=== PATIENT | female | born 1935 | race Caucasian/White ===

== ENCOUNTER → 2017-02-05 14:50 | Outpatient (CLI) | payer MEDICARE, OTHER ==
[2015-04-02 12:23] VITALS: BMI 22.0
[~2017-02-05 14:50] MED LIST: BAYER CHEWABLE81 MG PO; HYDROCODON-ACE1 EAC6 PO; LOTENSIN5 MG PO; LOTREL 5/10 MG1 CAP PO; NORVASC5 MG PO; PRAVACHOL20 MG PO; SYNTHROID50 MCG PO
== END | disposition home or self-care (01) ==
LOC: D.MAMMO 09:30
DX: Z12.31 Encounter for screening mammogram for malignant neoplasm of breast (principal)

== ENCOUNTER 2017-12-05 09:58 | Inpatient (IN) | payer MEDICARE, OTHER ==
[~2017-12-05] VITALS: Ht 162.6 cm; Wt 50.7 kg
[2017-12-05 10:28] LABS: BASOPHILS 0.6 % (0-2); HEMATOCRIT 33.3 % (36.0-48.0); HEMOGLOBIN 11.3 g/dL (12-16); IMMATURE GRANULOCYTES 0.4 % (0-5); LYMPHOCYTES 29.8 % (15-50); MCH 29.7 pg (26.0-34.0); MCHC 33.9 g/dL (31.0-37.0); MCV 87.6 fL (80.0-100.0); MEAN PLATELET VOLUME 8.8 fL (7.4-10.4); MONOCYTES 10.5 % (2-11); NEUTROPHILS 56.7 % (40-80); PLATELET COUNT 196 10x3/uL (130-400); RDW 13.7 % (11.5-14.5)
[2017-12-05 10:35] LABS: ALBUMIN 3.3 g/dL (3.4-5.0); ANION GAP 10.2 mmol/L (8-16); BILIRUBIN - TOTAL 0.5 mg/dL (0.2-1.3); CALCIUM 8.9 mg/dL (8.5-10.1); CARBON DIOXIDE 26.7 mmol/L (21.0-32.0); POTASSIUM - SERUM 3.9 mmol/L (3.5-5.1); PROTEIN - SERUM 7.5 g/dL (6.4-8.2)
[2017-12-05 11:07] LABS: T4 THYROXIN - FREE 1.42 ng/dL (0.76-1.46); THYROID STIMULATING HORMONE 1.85 uIU/mL (0.36-3.74)
[2017-12-05] MEDS ORDERED: LEVOXYL75 MCG PO (13:43)
[2017-12-05] MEDS ORDERED: PRAVACHOL40 MG PO (13:44)
[2017-12-05] MEDS ORDERED: TIROSINT75 MCG PO (13:52)
[2017-12-05] MEDS ORDERED: DESMOPRESSIN A0.1 MG (13:54)
[2017-12-05 14:21] VITALS: BP 161/80; BMI 18.7
[2017-12-05 15:29] VITALS: BP 114/62
[2017-12-05 20:00] VITALS: BP 140/70
[2017-12-05 20:17] VITALS: Ht 162.6 cm; Wt 50.7 kg
[2017-12-06 01:00] VITALS: BP 141/76
[2017-12-06 05:00] VITALS: BP 157/80
[2017-12-06 05:07] LABS: BASOPHILS 0.4 % (0-2); EOSINOPHILS 2.5 % (0-7); HEMATOCRIT 34.1 % (36.0-48.0); HEMOGLOBIN 11.5 g/dL (12-16); IMMATURE GRANULOCYTES 0.2 % (0-5); LYMPHOCYTES 35.6 % (15-50); MCH 29.3 pg (26.0-34.0); MCHC 33.7 g/dL (31.0-37.0); MCV 86.8 fL (80.0-100.0); MEAN PLATELET VOLUME 8.9 fL (7.4-10.4); MONOCYTES 11.9 % (2-11); NEUTROPHILS 49.4 % (40-80); PLATELET COUNT 211 10x3/uL (130-400); RBC 3.93 10x6/uL (4.00-5.40); RDW 13.7 % (11.5-14.5); WBC 5.5 10x3/uL (4.8-10.8)
[2017-12-06 05:50] LABS: ANION GAP 12.7 mmol/L (8-16); CARBON DIOXIDE 25.1 mmol/L (21.0-32.0); CREATININE - SERUM 0.9 mg/dL (0.6-1.3); POTASSIUM - SERUM 3.8 mmol/L (3.5-5.1)
[2017-12-06 05:57] LABS: % SATURATION 14 % (15-55); IRON 36 ug/dl (35-150); TOTAL IRON BIND CAPACITY 246 ug/dl (260-445); UNSAT IRON BIND CAPACITY 210 ug/dl (150-375)
[2017-12-06 07:00] VITALS: BP 158/83
[2017-12-06 12:00] VITALS: BP 158/85
[2017-12-06 17:14] VITALS: BP 129/70
[2017-12-06 19:00] VITALS: BP 149/79
[2017-12-07 00:26] VITALS: BP 156/79
[2017-12-07 04:00] VITALS: BP 155/80
[2017-12-07 08:21] LABS: FOLATE (FOLIC ACID) - SERUM 16.6 ng/mL (>3.0)
[2017-12-07 09:25] VITALS: BP 156/84
[2017-12-07 12:22] VITALS: BP 139/57
[2017-12-07 16:46] VITALS: BP 119/63
== END 2017-12-07 18:19 | disposition home or self-care (01) | DRG 312 ==
LOC: D.ER 09:58 → D.EDHOLD 12:34 → D.M2 12:34 → OBSVTIME 12-06 08:00 → D.M2 12-06 15:38
PROVIDERS: Family Medicine; Legal Medicine
DX: I95.1 Orthostatic hypotension (principal); E87.1 Hypo-osmolality and hyponatremia; E03.9 Hypothyroidism, unspecified; I10 Essential (primary) hypertension; D64.9 Anemia, unspecified; Z95.0 Presence of cardiac pacemaker

== ENCOUNTER → 2017-12-21 11:48 | Outpatient (CLI) | payer MEDICARE, OTHER ==
[2017-12-05 20:17] VITALS: BMI 18.7
[~2017-12-21 11:48] MED LIST changes: +DESMOPRESSIN A0.1 MG; +LEVOXYL75 MCG PO; +PRAVACHOL40 MG PO; +TIROSINT75 MCG PO
== END | disposition home or self-care (01) ==
LOC: D.CT 11:30
DX: I25.10 Atherosclerotic heart disease of native coronary artery without angina pectoris (principal)

== ENCOUNTER 2018-01-07 05:20 | Inpatient (IN) | payer MEDICARE, OTHER ==
[2018-01-06 15:03] LABS: APPEARANCE CLEAR (CLEAR); BILIRUBIN NEGATIVE (NEGATIVE); COLOR YELLOW (YELLOW); GLUCOSE NEGATIVE (NEGATIVE); KETONE NEGATIVE (NEGATIVE); NITRITE NEGATIVE (NEGATIVE); PROTEIN NEGATIVE (NEGATIVE); SPECIFIC GRAVITY 1.005 (1.005-1.020); UROBILINOGEN NORMAL (NORMAL)
[2018-01-06 15:21] LABS: HEMOGLOBIN 12.8 g/dL (12-16); MCH 29.8 pg (26.0-34.0); MCHC 34.6 g/dL (31.0-37.0); MCV 86.2 fL (80.0-100.0); MEAN PLATELET VOLUME 9.2 fL (7.4-10.4); RBC 4.29 10x6/uL (4.00-5.40); RDW 13.8 % (11.5-14.5); WBC 4.9 10x3/uL (4.8-10.8)
[2018-01-06 15:30] LABS: INR 1.08 (0.85-1.17); PROTIME 13.6 SECONDS (11.6-15.0)
[2018-01-06 15:41] LABS: ANION GAP 13.8 mmol/L (8-16); BILIRUBIN - TOTAL 0.78 mg/dL (0.2-1.3); CALCIUM 9.7 mg/dL (8.5-10.1); CREATININE - SERUM 0.8 mg/dL (0.6-1.3); POTASSIUM - SERUM 3.8 mmol/L (3.5-5.1); PROTEIN - SERUM 8.3 g/dL (6.4-8.2)
[2018-01-07] VITALS (56 sets, daily range): BP systolic 104–153; BP diastolic 43–73; Ht 162.6 cm; Wt 42.5 kg
[~2018-01-07] VITALS: Ht 162.6 cm; Wt 42.5 kg
--- NOTE | ~2018-01-07 | HP ---
PATIENT: ERASMO CUNNINGHAM MEDICAL RECORD: [id number] ACCOUNT: [id number] LOCATION:[facility]05 : 35 ADMISSION DATE: 01/07/18 HISTORY AND PHYSICAL EXAMINATION NameERASMO BINGHAM (82yo, F) ID# [id number]. Date/Time01/05/2018 10:69RUHDX78/19/1936Service Dept.NPP[facility] ClinicProviderEDMOIZ KWONG MDInsuranceMed Primary: [place]) Insurance # : [id number] Referring Provider Name : BARRY VORA Employer Name : RETIRED Med Secondary: [employer] (MEDICARE SUPPLEMENT) Insurance # : [id number] Referring Provider Name : BARRY VORA Employer Name : RETIRED Prescription: CMX - Member is eligible. Chief Complaint Carotid stenosis s/p PPM 05/21/14 RIGHT CAROTID STENOSIS CTA CAROTIDS [facility] Patient's Care Team Referring Provider (): BARRY VORA: [address] [place] [phone], , Analyst [employer] Bever[employer]: LA GARCIA MD: [address] [place] [phone], , Patient's Pharmacies [facility] ([facility]): [address] [place] [id number], , Vitals BP:130/80 sitting R arm 01/05/2018 10:39 am 134/82 sitting L arm 01/05/2018 10:40 amHR:80/REG 01/05/2018 10:41 amHt:5 ft 4 in 01/05/2018 10:36 amWt:110 lbs 01/05/2018 10:38 amBMI:18.9 01/05/2018 10:38 amAllergies Reviewed Allergies AMOXICILLIN: Rash (Severe)CLINDAMYCIN: Rash (Severe)Medications Reviewed Medications APAP/CODEINE TAB 300-30MG08/04/13 filledCatalystHealthSolutionsBENAZEPRIL TAB 5MG05/14/14 filledCatalystHealthSolutionscholestyramine (with sugar) 4 gram oral /25/18 filledCaremarkdesmopressin 0.1 mg tablet Take 1 tablet(s) every day by oral route at bedtime for 90 days.12/23/17 filledCaremarkFluvirin 7700-4402 45 mcg (15 mcg x 3)/0.5 mL intramuscular suspension ADM 0.5ML UTD1 filledsurescriptsFluvirin 2051-3516 45 mcg (15 mcg x 3)/0.5 mL intramuscular suspension INJECT 0.5 ML INTRAMUSCULARLY DIRECTED.05/03/14 filledsurescriptsFluzone High-Dose 8828-7141 (PF) 180 mcg/0.5 mL intramuscular syringe ADM 0.5ML IM UTD1 filledsurescriptslevothyroxine 50 mcg ikplqj44/26/17 filledCaremarkLotrel 5 mg-10 mg capsule Take 1 capsule(s) every day by oral route.12/29/17 enteredErika Watkinsoxybutynin chloride ER 10 mg tablet,extended release 24 hr Take 1 tablet(s) every day by oral route for 90 days.03/10/17 filledCaremarkPRAVASTATIN TAB 20MG05/14/14 filledCatalystHealthSolutionsPREDNISONE TAB 10MG08/04/13 filledCatalystHealthSolutionsVesicare 5 mg tablet Take 1 tablet(s) every day by oral route for 7 days.02/15/17 prescribedRobert Martino, MDProblems HISTORY AND PHYSICAL [id number] ERASMO CUNNINGHAM Reviewed Problems Hypothyroidism Hyperlipidemia Essential hypertension Coronary arteriosclerosis Complete atrioventricular block Carotid artery stenosis, Right Lupus erythematosus Sjgren's syndrome Osteoarthritis Syncope Family History Reviewed Family History Father- Heart diseaseSocial History Reviewed Social History Cardiology and General Smoking Status: Never smoker Alcohol intake: None Occupation: retired Marital status: Is blood transfusion acceptable in an emergency?: Y Surgical History Reviewed Surgical History Other - 05/22/2014 - 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 HPI Cerebral Vascular Disease Reported by patient. Duration: has noted for months; "TWO MONTHS AGO" Onset/Timing: intermittent; monthly HISTORY AND PHYSICAL [id number] ERASMO CUNNINGHAM Alleviating Factors: rest Aggravating Factors: position change Associated Symptoms: no difficulty speaking; no lethargy; syncope Notes: TWO EPISODES OF SYNCOPE, PASSED OUT IN RESTORATIONIST 1 MONTH AGO severe right internal carotid artery stenosis with syncope ROS Patient reports no fever, no night sweats, no significant weight gain, no significant weight loss, and no exercise intolerance; syncope and dizziness. She reports no jugular vein distension and no swollen glands; history of fractured jaw. She reports no chest pain, no arm pain on exertion, no shortness of breath when walking, no shortness of breath when lying down, no palpitations, and no known heart murmur; permanent transvenous pacing system. She reports no dry eyes, no irritation, and no vision change. She reports no difficulty hearing and no ear pain. She reports no frequent nosebleeds and no nose/sinus problems. She rep orts no sore throat, no bleeding gums, no snoring, no dry mouth, no mouth ulcers, no oral abnormalities, and no teeth problems. She reports no cough, no wheezing, no shortness of breath, and no coughing up blood. She reports no abdominal pain, no vomiting , normal appetite, no diarrhea, not vomiting blood, no nausea, and no constipation. She reports no incontinence, no difficulty urinating, no hematuria, and no increased frequency. She reports no muscle aches, no muscle weakness, no arthralgias/joint pain, n o back pain, and no swelling in the extremities. She reports no abnormal mole, no jaundice, and no rashes. She reports no loss of consciousness, no weakness, no numbness, no seizures, no dizziness, and no headaches. She reports no depression, no sleep dis turbances, feeling safe in relationship, and no alcohol abuse. She reports no fatigue. She reports no swollen glands and no bruising. She reports no runny nose, no sinus pressure, no itching, no hives, and no frequent sneezing. ROS as noted in the HPI Physical Exam Patient is an 82-year-old female. Constitutional: General Appearance well nourished and developed and healthy-appearing. Level of Distress NAD. Ambulation ambulating normally. Ears, Nose, Throat: Lips, Teeth, and Gums weak peripheral seventh right cranial nerve. Cardiovascular: Apical Impulse not displaced or no thrill. Heart Auscultation normal s1 and s2; no murmurs, rubs, or gallops; and RRR. Arterial Pulses no abdominal aorta bruits, femoral bruits, or popliteal bruits and 2+ bilateral, cline tid 2+ bilateral, femoral 2+ bilateral, popliteal 2+ bilateral, and dorsalis pedis 2+ bilateral. Edema no edema or varicosities. Lungs: Repiratory Effort no dyspnea. Percussion no hyperresonance or dullness or flatness. Auscultation no wheezing, rhonchi, or rales / crackles and breathing sounds normal, good air movement, and CTA except as noted. Abdomen: Bowl Sounds normal. Inspection and Palpation no tenderness, guarding, masses, or rebound tenderness and soft and non-distended. Liver non-tender and no hepatomegaly. Spleen non-tender and no splenomegaly. Hernia none palpable. Musculoskeletal System: Gait And Stance normal gait and stance. Digits and Nails normal nails and no cyanosis. Neurologic: Cranial Nerves grossly intact. Reflexes DTRs 2+ bilaterally throughout. Sensation grossly intact. HISTORY AND PHYSICAL [id number] ERASMO CUNNINGHAM Lymph Nodes: Lymph Nodes no cervical LAD, supraclavicular LAD, axillary LAD, or inguinal LAD. Eyes: Lids and Conjunctivae no discharge or pallor and non-injected. Pupils PERRLA. Cornea grossly intact. EOM EOMI. Lens clear. Sclera non-icteric. Neck: Neck no masses or enlarged lymph nodes and supple, trachea midline, and carotid bruits (very high-pitched right). Thyroid no enlargement or nodules and non-tender. Skin: Inspection and Palpation no rash, lesions, ulcers, jaundice, or abnormal nevi. Assessment / Plan severe right internal carotid artery stenosis symptomatic 1. Carotid artery stenosis I65.29: Occlusion and stenosis of unspecified carotid artery CAROTID STENOSIS: CARE INSTRUCTIONS Discussion Notes severe right internal carotid artery stenosis. I have discussed her disease process with her in detail as well as the alternative methods of treatment. We discussed right carotid endarterectomy including the expected benefits and risks included bleeding, infection, stroke, , and the imponderables.she understands all the above and wishes to proceed with right carotid endarterectomy. RADHA KWONG MD at 1200 CC: [id number] DICTATION DATE: 01/05/18 1030 STEEL GRINDER: REJI 01/06/18 1056 ADM IN [facility] [address] [place] [address]
--- NOTE | ~2018-01-07 | OP ---
PATIENT NAME: ERASMO CUNNINGHAM MEDICAL RECORD: [id number] :35 [facility] AD[facility]ION DATE:01/07/18 SURGEON: PERCY KWONG MD DATE OF OPERATION: 01/07/2018 SURGEON: Percy Kwong MD ANESTHESIA: General endotracheal, Dr. Fitzgerald. OPERATION PERFORMED: Right carotid endarterectomy with patch angioplasty. PREOPERATIVE DIAGNOSIS: Severe right internal carotid artery stenosis. POSTOPERATIVE DIAGNOSIS: Severe right internal carotid artery stenosis. INDICATION FOR OPERATION: Severe right internal carotid artery stenosis. FINDINGS AT OPERATION: Critical right internal carotid artery stenosis with area less than 10%. There were no EEG changes with clamping or unclamping of the carotid artery. ESTIMATED BLOOD LOSS: Less than 100 mL. DESCRIPTION OF PROCEDURE: After informed consent, adequate preoperative medication evaluation, the patient was brought to the operating room, placed on the table in supine position. After induction of general endotracheal anesthesia and application of appropriate monitoring devices, the right neck and chest were prepped and draped in a sterile field, utilizing Betadine scrub, alcohol, and Betadine solution. A Betadine-impregnated drape was also used. An oblique incision was made in the skin crease. Dissection carried down to the fascia. Hemostasis maintained with electrocautery. Facial vein was identified and divided. Utilizing sharp dissection, the common carotid, internal carotid, and external carotid arteries were dissected free of surrounding structures, protecting the neurological structures. The patient was given a calculated dose of heparin, after 3 minutes, clamps were applied. After 2 minutes, no EEG change. The arteriotomy was made and extended with Killian scissors. Artery underwent endarterectomy sharply. Artery underwent extensive debridement and irrigation. Utilizing a CorMatrix vascular patch, a running 7-0 Prolene suture, the arteriotomy was closed with patch angioplasty technique. All maneuvers to remove trapped air were performed. The clamps were removed sequentially. There were no EEG changes. The patient was given a calculated dose of protamine to reverse the heparin. Hemostasis was achieved. A #7 Stuart-Henderson drain was left in the depths of wound and brought out through the base of the neck. Neck was again irrigated. Instrument count and sponge count were correct times 2. Neck was closed in layers utilizing 3-0 Vicryl on the platysma, 5-0 subcuticular Monocryl on the skin. Sterile dressings were applied. The patient tolerated the procedure well and was transferred to the CV ICU in satisfactory condition. TRANSINT:[id number] Voice Confirmation ID: [id number] DOCUMENT ID: [id number] OPERATIVE REPORT [id number] ERASMO CUNNINGHAM EDWARD MD at 1200 CC: [id number] DICTATION DATE: 01/07/18 1024 REFUELER: 01/07/18 1141 [place] [address]
[2018-01-08] VITALS (93 sets, daily range): BP systolic 97–153; BP diastolic 36–85
[2018-01-09] VITALS (53 sets, daily range): BP systolic 30–156; BP diastolic 56–84
[2018-01-09] MEDS ORDERED: PLAVIX75 MG PO (12:36)
== END 2018-01-09 14:10 | disposition home or self-care (01) | DRG 38 ==
LOC: D.SDCHOLD 05:20 → D.CVICU 05:20 → D.SDCHOLD 07:30 → D.CVICU 10:00
PROVIDERS: Internal Medicine Cardiovascular Disease
PROC: 03UK0JZ Supplement Right Internal Carotid Artery with Synthetic Substitute, Open Approach (ICD-10-PCS; 2018-01-07)
PROC: 03CK0ZZ Extirpation of Matter from Right Internal Carotid Artery, Open Approach (ICD-10-PCS; principal; 2018-01-07 07:30)
DX: I65.21 Occlusion and stenosis of right carotid artery (principal); I44.2 Atrioventricular block, complete; E03.9 Hypothyroidism, unspecified; E78.5 Hyperlipidemia, unspecified; I10 Essential (primary) hypertension; L93.0 Discoid lupus erythematosus; M35.00 Sjogren syndrome, unspecified; M19.90 Unspecified osteoarthritis, unspecified site; R55 Syncope and collapse

== ENCOUNTER 2018-03-11 19:00 | Outpatient (CLI) | payer MEDICARE, OTHER ==
[2018-01-07 10:39] VITALS: BMI 17.9
[~2018-03-11 19:00] MED LIST changes: +PLAVIX75 MG PO
== END 2018-03-11 23:59 | disposition home or self-care (01) ==
LOC: D.MAMMO 19:00
DX: Z12.31 Encounter for screening mammogram for malignant neoplasm of breast (principal)

== ENCOUNTER → 2018-11-14 08:22 | Outpatient (CLI) | payer MEDICARE, OTHER ==
[2018-01-07 10:39] VITALS: BMI 17.9
== END | disposition home or self-care (01) ==
LOC: D.HCCARDIO 08:22
PROVIDERS: ATTEND Internal Medicine Cardiovascular Disease
DX: I10 Essential (primary) hypertension (principal)

== ENCOUNTER 2019-03-20 08:00 | Outpatient (CLI) | payer MEDICARE, OTHER ==
[2018-01-07 10:39] VITALS: BMI 17.9
== END 2019-03-20 23:59 | disposition home or self-care (01) ==
LOC: D.MAMMO 08:00
PROVIDERS: ATTEND Emergency Medicine
DX: Z12.31 Encounter for screening mammogram for malignant neoplasm of breast (principal)

== ENCOUNTER → 2019-07-13 09:23 | Outpatient (CLI) | payer MEDICARE, OTHER ==
[2018-01-07 10:39] VITALS: BMI 17.9
== END | disposition home or self-care (01) ==
LOC: D.US 09:23
PROVIDERS: ATTEND Internal Medicine Cardiovascular Disease
DX: I65.23 Occlusion and stenosis of bilateral carotid arteries (principal)

== ENCOUNTER 2019-08-08 15:21 | Emergency (ER) | payer MEDICARE, OTHER ==
[~2019-08-08] VITALS: Ht 162.6 cm; Wt 50.9 kg
[2019-08-08 15:48] VITALS: Ht 162.6 cm; Wt 50.9 kg
[2019-08-08] MEDS ORDERED: OXYBUTYNIN CHLOR5 MG PO (15:52)
[2019-08-08] MEDS ORDERED: METOPROLOL TART25 MG PO (15:52)
[2019-08-08] MEDS ORDERED: DICLOFENAC SODI50 MG PO ×2 (18:29→18:32)
[2019-08-08] MEDS ORDERED: ZANAFLEX2 M1 PO (18:29)
[2019-08-08] MEDS ORDERED: STOOL SOFTENER100 M1 PO (18:34)
[2019-08-08 19:20] VITALS: BP 161/72
== END 2019-08-08 19:18 | disposition home or self-care (01) ==
LOC: D.ER 15:21
DX: M51.36 Other intervertebral disc degeneration, lumbar region (principal); I10 Essential (primary) hypertension; I25.10 Atherosclerotic heart disease of native coronary artery without angina pectoris; Z95.0 Presence of cardiac pacemaker; E07.9 Disorder of thyroid, unspecified

== ENCOUNTER 2019-08-13 14:07 | Inpatient (IN) | payer MEDICARE, OTHER ==
[~2019-08-13] VITALS: Ht 162.6 cm; Wt 57.6 kg
[2019-08-13] VITALS (24 sets, daily range): BP systolic 121–169; BP diastolic 72–111; BMI 20.8
--- NOTE | ~2019-08-13 | HEMODYNAMI ---
PATIENT:ERASMO CUNNINGHAM MEDICAL RECORD: [id number] : 35 [facility] D.2301 ADMISSION DATE: 08/13/19 Generatedon:08/15/201913:14 Patient name: ERASMO CUNNINGHAM Patient #: [id number] : 1935 Date of study: 08/15/2019 Page: Of Hemodynamic Procedure Report Patient Data Patient Demographics Procedure consent was obtained First Name: ERASMO Gender: Female Last Name: MARISA : 1935 Middle Initial: RUSLAN Age: 83 year(s) Patient #: [id number] Race: SSN: [id number] Additional ID: [id number] Contact details Address: [address] [place] [address] [address] State: [place] City: [facility] Zip code: [address] Admission Admission Data Admission Date: 08/13/2019 Admission Time: 16:29 Arrival Date: 08/13/2019 Arrival Time: 16:29 Admit Source: Other Insurance Payor: Medicare Room #: D.2301 [facility] #: [id number] Height (in.): 64.17 BSA: 1.55 (m2) Height (cm.): 163 BMI: 19.57 (kg/m2) Weight (lbs.): 114.64 Weight (kg.): 52 Lab Results Lab Result Date: 08/15/2019 Lab Result Time: 0:00 Biochemistry Name Units Result Min Max BUN mg/dl 25 --(----)-* 7 18 Creatinine mg/dl 1 --(--*-)-- 0.6 1.3 eGFR ml/min 56 *-(----)-- 90 120 NONAFRICAN CBC Name Units Result Min Max Hemoglobin g/dl 12.6 -*(----)-- 13.5 17.5 Procedure Procedure Types Cath Procedure Diagnostic Procedure C LHC w/Coronaries Sedation Charges Moderate Sedation up to 15 minutes Peripheral Cath Diagnostic Procedure Airport Control Operator Peripheral Procedures Renal Arteriogram Procedure Description Procedure Date Procedure Date: 08/15/2019 Procedure Start Time: 12:59 Procedure End Time: 13:11 Procedure Staff Name Function Nigel Nieves MD Performing Physician Anila Osullivan RT Monitor An De La Garza RT Scrub Aiyana Arrington RN Bevel Operator Procedure Data Cath Procedure Fluoroscopy Diagnostic fluoroscopy Total fluoroscopy Time: 2.4 time: 2.4 min min Diagnostic fluoroscopy Total fluoroscopy dose: 337 dose: 337 mGy mGy Contrast Material Contrast Material Type Amount (ml) Isovue 300 53 Entry Location Entry Primary Successful Side Size Upsize Upsize Entry Closure Succes sful Closure Location (Fr) 1 (Fr) 2 (Fr) Remarks Device Remarks Femoral Right 5 Fr Exoseal artery Estimated blood loss: 5 ml Diagnostic catheters Device Type Used For End Catheter Placement MULTIPACK JL 4.0 5Fr Left Coronary catheter Angiography MULTIPACK 3DRC 5Fr Right Coronary catheter Angiography MULTIPACK Pigtail 5 Fr LV Angiography catheter Procedure Complications No complications Procedure Medications Medication Administration Route Dosage 0.9% NaCl I.V. 100 ml/hr Oxygen etCO2 Nasal cannula 2 l/min Lidocaine 2% added to field 20 Heparin Flush Bag added to field 2 bags (1000units/500ml NS) Versed I.V. 2 mg Fentanyl I.V. 50 mcg Hemodynamics Rest BSA: 1.55 (m2) HGB: 12.6 (g/dl) O2 Consumption: Estimated: 147.72 (ml/min) O2 Co nsumption indexed: Estimated:95.3 (ml/min/m) Heart Rate: 87 (bpm) Pressure Samples Time Site Value (mmHg) Purpose Heart Use Rate(bpm) 13:06 LV 104/10,11 Snapshot 94 Gradients Valve Time Site Site Mean SEP/DFP Peak To Heart Use 1 2 (mmHg) (sec/min) Peak Rate (mmHg) (bpm) Aortic 13:08 LV AO 87 Snapshots Pre Cath Intra NCS Post Cath Vital Signs Time Heart Resp SPO2 etCO2 NIBP (mmHg) Rhythm Pain Sedation Rate (ipm) (%) (mmHg) Status Level (bpm) 12:50:30 86 19 100 17.3 136/90(114) Paced 0 (11) 10(A) , No pain 12:54:44 67 18 100 4.5 119/63(87) Paced 0 (11) 10(A) , No pain 12:58:46 97 16 100 11.3 117/80(102) Paced 0 (11) 10(A) , No pain 13:02:50 90 23 100 12.8 123/72(90) Paced 0 (11) 9(A) , No pain 13:07:01 83 23 100 13.5 113/49(94) Paced 0 (11) 10(A) , No pain 13:11:05 86 14 100 12 110/68(83) Paced 0 (11) 10(A) , No pain Medications Time Medication Route Dose Verified Delivered Reason Notes Eff ectiveness by by 12:49:57 0.9% NaCl I.V. 100 Nigel Aiyana used for ml/hr Hoolehua Murphy procedure MD JOHNSON 12:50:02 Oxygen etCO2 2 Nigel Aiyana used for Nasal l/min Hoolehua Murphy procedure cannula MD JOHNSON 12:50:08 Lidocaine 2% added 20ml Nigel Manning for local to vial [facility] anesthetic field MD CORRALES 12:50:12 Heparin Flush added 2 Nigel Nigel used for Bag to bags [facility] procedure (1000units/500ml field MD CORRALES NS) 12:58:44 Versed I.V. 2 mg Nigel Aiyana for EzequielMichel Arrington sedation MD JOHNSON 12:58:49 Fentanyl I.V. 50 Nigel Aiyana for mcg [facility] Arrington sedation MD JOHNSONglove cleaner Log Time Note 12:27:02 Informed consent obtained and on chart 12:28:33 Admit Source: Other 12:28:35 Arrival Date: 08/13/2019 4:29:00 PM 12:29:10 Insurance Payor : Medicare 12:29:21 Patient Height : 64.17 inches 12:29:25 Patient Weight : 114.64 lbs 12:29:45 Diagnostic Cath Status : Urgent 12:29:59 Alfredo Ugarte RN sent for patient. Start room use. 12:30:00 Time tracking: Regular hours (M-F 7:00 - 5:00) 12:30:04 Plan of Care:Hemodynamics will remain stable., Cardiac rhythm will remain stable., Comfort level will be maintained., Respiratory function will remain adequate., Patient/ family verbilizes understanding of procedure., Procedure tolerated without complication., Recovers from procedure without complications.. 12:31:20 2) 60-89 Mildly reduced kidney function, and other findings (as for stage 1) point to kidney disease. 12:31:24 Maximum allowable contrast dose (3.7 X eGFR X 0.75)155 ml. 12::59 Lab Result : eGFR NONAFRICAN 56 ml/min 12::59 Lab Result : Creatinine 1 mg/dl 12::59 Lab Result : BUN 25 mg/dl 12::59 Lab Result : Hemoglobin 12.6 g/dl 12:49:24 Vital chart was started 12:49:26 Patient received from ICU to CCL 2 Alert and oriented. Tansferred to table in Supine position. 12:49:27 Warm blankets applied, and margarito hugger turned on for patient comfort. 12:49:28 Correct patient and procedure confirmed by team. 12:49:32 ECG and BP/O2 sat monitors applied to patient. 12:49:34 Baseline sample Acquired. 12:49:38 Full Disclosure recording started 12:49:42 H&P Date Dictated: 08/15/2019 New H&P dictated by physician.. 12:49:44 Pre-procedure instructions explained to patient. 12:49:45 Pre-op teaching completed and patient verbalized understanding. 12:49:48 Family in waiting room. 12:49:49 Patient NPO since Midnight. 12:49:52 Is the patient allergic to Iodine/contrast media? No. 12:49:53 Was the patient premedicated? Yes 12:49:54 Is patient on blood thinner?Yes 12:49:57 0.9% NaCl 100 ml/hr I.V. was administered by Aiyana Arrington RN; used for procedure; Verbal order read back and verified. 12:49:58 ACC The patient was administered the following blood thiners within the last 24 hours: ACCLovenox 12:50:00 Patient diabetic? No. 12:50:02 Oxygen 2 l/min etCO2 Nasal cannula was administered by iAyana Arrington RN; used for procedure; Verbal order read back and verified. 12:50:02 Previous problem with sedation/anesthesia? No ? 12:50:07 Snore? No 12:50:08 Lidocaine 2% 20ml vial added to field was administered by Nigel Nieves MD; for local anesthetic; Verbal order read back and verified. 12:50:11 Sleep apnea? No 12:50:12 Heparin Flush Bag (1000units/500ml NS) 2 bags added to field was administered by Nigel Nieves MD; used for procedure; Verbal order read back and verified. 12:50:12 Deviated septum? No 12:50:13 Opens mouth fully? Yes 12:50:13 Sticks out tongue? Yes 12:50:15 Airway obstruction? No ? 12:50:18 Dentures? Yes OUT 12:50:22 Pre procedure: right dorsailis pedis pulse 1+ Palpable, but thready & weak; easily obliterated 12:50:23 Pre procedure: left dorsailis pedis pulse 1+ Palpable, but thready & weak; easily obliterated 12:50:25 Patient pain scale 0/10 ?. 12:51:04 IV patent on arrival in left forearm with 0.9% NaCl at [facility]. 12:51:07 Lab results completed and on chart. 12:51:14 Right groin area was prepped with chlora-prep and draped in sterile fashion 12:51:15 Alarms reviewed by R. N. 12:51:16 Sharps counted by scrub and verified by R.N. 12:51:17 Physician arrived 12:51:18 --------ALL STOP TIME OUT------ 12:51:18 Final Timeout: patient, procedure, and site verified with staff and physician. All members of the team are in agreement. 12:51:21 Right groin site verified by team. 12:51:24 Fire Safety Assessment: A--An alcohol-based skin anteseptic being used preoperatively., C--Open oxygen or nitrous oxide is being used., D--An ESU, laser, or fiber-optic light is being used. 12:51:27 Physical assessment completed. ASA score P 2 - A patient with mild systemic disease as per Nigel Nieves MD. 12:51:33 Sedation plan: IV Moderate Sedation Medication:Versed, Fentanyl 12:53:10 Use device set Femoral Dx 12:53:11 ACIST Syringe (38996) opened to sterile field. 12:53:12 Bag Decanter () opened to sterile field. 12:53:12 Medline Cath Pack ([id number]) opened to sterile field. 12:53:14 ACIST Manifold (45871) opened to sterile field. 12:53:15 ACIST Hand Control (23590) opened to sterile field. 12:53:16 DIAGNOSTIC Multipack 5Fr catheter set (XS1546) opened to sterile field. 12:53:17 Tegaderm 4 x 4 (1626W) opened to sterile field. 12:53:20 SHEATH 5FR [place] (DSI039) opened to sterile field. 12:53:20 EMERALD Guide Wire (877-235) opened to sterile field. 12:58:44 Versed 2 mg I.V. was administered by Aiyana Arrington RN; for sedation; Verbal order read back and verified. 12:58:49 Fentanyl 50 mcg I.V. was administered by Aiyana Arrington RN; for sedation; Verbal order read back and verified. 12:59:35 Procedure started. 12:59:48 Local anesthetic to right femoral artery with Lidocaine 2% by Nigel Nieves MD.INITIAL ACCESS ONLY 13:00:01 A 5 Fr sheath was inserted into the Right Femoral artery 13:00:19 Zero performed for pressure channel P1 13:00:50 A MULTIPACK JL 4.0 5Fr catheter was advanced over the wire and used for Left Coronary Angiography. 13:01:38 LCA angiography performed. 13:01:41 Injector settings: Ml/sec: 3, Volume: 6, 13:02:34 Catheter removed. 13:03:19 A MULTIPACK 3DRC 5Fr catheter was advanced over the wire and used for Right Coronary Angiography. 13:03:27 RCA angiography performed. 13:03:29 Injector settings: Ml/sec: 3, Volume: 6, 13:04:02 Bilateral renal angiography performed. 13:05:26 Catheter removed. 13:05:33 A MULTIPACK Pigtail 5 Fr catheter was advanced over the wire and used for LV Angiography. 13:06:47 LV hemodynamics recorded. 13:06:48 LV gram done using MCKEON 13:06:51 Injector settings: Ml/sec: 5, Volume: 15, 13:06:58 EF : 50 % 13:08:16 Catheter removed. 13:08:26 EXOSEAL 5Fr (EX500) opened to sterile field. 13:08:43 Sheath removed intact; hemostasis achieved with Exoseal to the Right Femoral artery. 13:08:48 Procedure ended.(Physican Out) 13:08:56 Fluoroscopy time 02.40 minutes. 13:08:59 Fluoroscopy dose: 337 mGy 13:08:59 Flurop Dose total: 337 13:09:08 Dose Area Product 81009 mGy/cm. 13:09:21 Contrast amount:Isovue 300 53ml. 13:09:24 Maximum allowable dose exceeded? No. 13:09:25 Sharps counted by scrub and verified by R.N. 13:09:26 Insertion/operative site no bleeding no hematoma. 13:09:30 Post-op/insertion site Right Femoral artery dressed using a 4 x 4 and Tegaderm. 13:09:32 Post Procedure Pulses reassessed and unchanged 13:09:35 Post procedure rhythm: unchanged. 13:09:42 Estimated blood loss: 5 ml 13:09:47 Post procedure instruction explained to patient.Patient verbalizes understanding. 13:10:47 Procedure and supply charges have been captured, reviewed, submitted and are correct. 13:10:52 Procedure Complication : No complications 13:11:00 Vital chart was stopped 13:11:03 [facility] Findings: MVD- MD will discuss options w/ pt 13:11:06 Operative report dictated upon procedure completion. 13:11:07 See physician's report for complete and final results. 13:11:11 Report given to ICU. 13:11:14 Patient transfered to ICU with Stretcher. 13:11:15 Procedure ended. 13:11:15 Full Disclosure recording stopped 13:11:21 End room use (Document Last) 13:12:25 Procedure type changed to Cath procedure, Diagnostic procedure, LHC, [facility] w/Coronaries, Sedation Charges, Moderate Sedation up to 15 minutes, Peripheral Cath Diagnostic Procedure, Airport Control Operator Peripheral Procedures, Renal Arteriogram Device Usage Item Name Manufacture Quantity Catalog Hospital Part Current Minimal L ot# / Number Charge Number Stock Stock Serial# Code ACIST Acist 1 27791 352444 [id number] 654863 20 Syringe Medical (47028) Systems Inc Bag Microtek 1 798560 20623 779613 5 Decanter Medical Inc. () Medline Medline 1 [id number] 339290 91409 511508 5 Cath Pack ([id number]) ACIST Acist 1 28266 726837 283890 132385 5 Manifold Medical (92829) Systems Inc ACIST Hand Acist 1 34355 434533 264684 241454 5 Control Medical (35809) Systems Inc DIAGNOSTIC Cardinal 1 QW7635 320466 72968 897831 30 Multipack Health 5Fr catheter set (IV3573) Tegaderm 4 3M 1 1626W 579314 924435 377368 5 x 4 (1626W) SHEATH 5FR Terumo 1 ITQ789 511286 099773 139087 5 [place] (RAG288) EMERALD Cardinal 1 021-570 360936 964132 904417 5 Guide Wire [facility] (361-008) MULTIPACK Cardinal 1 797708 5 JL 4.0 5Fr Health catheter MULTIPACK Cardinal 1 035870 5 3DRC 5Fr Health catheter MULTIPACK Cardinal 1 344011 5 Pigtail 5 Health Fr catheter EXOSEAL 5Fr Cardinal 1 EX500 599187 176296 769353 10 (EX500) Health Signature Audit [facility] Time Signature Unsigned Intra-Procedure 08/15/2019 Anila Osullivan 1:13:01 PM RT(R) Intra-Procedure 08/15/2019 Aiyana Arrington 1:13:49 PM RN Intra-Procedure 08/15/2019 Nigel Taveras 1:14:36 PM Michel CORRALES Signatures Performing Physician : Signature : Nigel Nieves MD Date : Time : Monitor : Anila Osullivan RT Signature : Date : Time : [facility] [address], [place] [address]
[~2019-08-13 14:07] MED LIST changes: +DICLOFENAC SODI50 MG PO; +METOPROLOL TART25 MG PO; +OXYBUTYNIN CHLOR5 MG PO; +STOOL SOFTENER100 M1 PO; +ZANAFLEX2 M1 PO
[2019-08-13 14:55] LABS: APPEARANCE CLEAR (CLEAR); BILIRUBIN NEGATIVE (NEGATIVE); COLOR YELLOW (YELLOW); GLUCOSE NEGATIVE (NEGATIVE); KETONE NEGATIVE (NEGATIVE); NITRITE NEGATIVE (NEGATIVE); PROTEIN NEGATIVE (NEGATIVE); UROBILINOGEN NORMAL (NORMAL)
[2019-08-13 15:06] LABS: BASOPHILS 0.2 % (0-2); EOSINOPHILS 0 % (0-7); HEMATOCRIT 38.6 % (36.0-48.0); HEMOGLOBIN 13.2 g/dL (12-16); IMMATURE GRANULOCYTES 1.4 % (0-5); LYMPHOCYTES 11.4 % (15-50); MCH 29.7 pg (26.0-34.0); MCHC 34.2 g/dL (31.0-37.0); MCV 86.9 fL (80.0-100.0); MEAN PLATELET VOLUME 9.6 fL (7.4-10.4); MONOCYTES 8.5 % (2-11); NEUTROPHILS 78.5 % (40-80); RBC 4.44 10x6/uL (4.00-5.40); RDW 14.1 % (11.5-14.5); WBC 8.7 10x3/uL (4.8-10.8)
[2019-08-13 15:11] LABS: PLATELET COUNT 304 10x3/uL (130-400)
[2019-08-13 15:17] LABS: INR 1.06 (0.85-1.17); PROTIME 13.7 SECONDS (11.6-15.0)
[2019-08-13 15:18] LABS: D-DIMER-QUANTITATIVE 2.16 ug/mLFEU (0.20-0.54)
[2019-08-13 15:34] LABS: ALBUMIN 3.1 g/dL (3.4-5.0); ALKALINE PHOSPHATASE 110 U/L (46-116); ALT (SGPT) 34 U/L (10-68); AMYLASE - SERUM 47 U/L (25-115); BILIRUBIN - TOTAL 0.68 mg/dL (0.2-1.3); CALCIUM 8.3 mg/dL (8.5-10.1); CHLORIDE - SERUM 86 mmol/L (98-107); CREATININE - SERUM 0.8 mg/dL (0.6-1.3); GLUCOSE 141 mg/dL (74-106); LIPASE 119 U/L (73-393); POTASSIUM - SERUM 3.5 mmol/L (3.5-5.1); PRO BNP 1884 pg/mL (0-450); PROTEIN - SERUM 7.4 g/dL (6.4-8.2); UREA NITROGEN 23 mg/dL (7-18); eGFR NON AFRICAN AMERICAN 72 mL/min (90-120)
[2019-08-13 15:35] LABS: CALC OSMOLALITY 247 mosm/kg (275-300); TROPONIN-I < 0.017 ng/mL (0.000-0.060)
[2019-08-13 15:36] LABS: SODIUM 120 mmol/L (136-145)
--- NOTE | 2019-08-13 16:36 | NUR ---
RESP IN ROOM WITH PT.
--- NOTE | 2019-08-13 17:49 | NUR ---
1000CC EMPTIED OUT OF VELARDE CATH. PT C/O NAUSEA, ZOFRAN GIVEN PER ORDERS. NITRO GTT UP TO 8MCG/MIN . PT RESTING WITH EYES CLOSED. FAMILY AT BEDSIDE.
--- NOTE | 2019-08-13 19:00 | NUR ---
PT RESTING ON BED. PT UPDATED ON PLAN OF CARE. PT DENIES FURTHER QUESTIONS OR NEEDS.
--- NOTE | 2019-08-13 19:41 | NUR ---
PT TRANSPORTED TO ICU VIA STRETCHER AT THIS TIME. PORTABLE CARDIAC MONITORING, O2 IN PLACE. RT AT SIDE.
--- NOTE | 2019-08-13 19:56 | NUR ---
ASSESSMENT DONE SEE FLOW SHEET. VSS. NO SIGNS OF ACUTE DISTRESS NOTED WILL CONTINUE TO MONITOR.
[2019-08-13 22:37] LABS: ANION GAP 11.3 mmol/L (8-16); BILIRUBIN - TOTAL 0.63 mg/dL (0.2-1.3); CALCIUM 8.1 mg/dL (8.5-10.1); CARBON DIOXIDE 30.6 mmol/L (21.0-32.0); CREATININE - SERUM 0.9 mg/dL (0.6-1.3); POTASSIUM - SERUM 3.9 mmol/L (3.5-5.1); PROTEIN - SERUM 7.1 g/dL (6.4-8.2)
--- NOTE | 2019-08-13 23:00 | NUR ---
2100 MEDS GIVEN PER 2299 REASSESSMENT DONE SEE FLOW SHEET VSS
[2019-08-14] VITALS (55 sets, daily range): BP systolic 110–162; BP diastolic 61–123; Ht 162.6 cm; Wt 57.6 kg
--- NOTE | 2019-08-14 00:58 | NUR ---
WATER PROVIDED PER PT REQUEST. VSS. NO SIGNS OF ACUTE DISTRESS NOTED.
--- NOTE | 2019-08-14 03:00 | NUR ---
REASSESSMENT DONE SEE FLOW SHEET VSS
[2019-08-14 04:24] LABS: BASOPHILS 0.1 % (0-2); EOSINOPHILS 0.3 % (0-7); HEMATOCRIT 36.5 % (36.0-48.0); HEMOGLOBIN 13.2 g/dL (12-16); IMMATURE GRANULOCYTES 0.5 % (0-5); LYMPHOCYTES 29.2 % (15-50); MCH 31.1 pg (26.0-34.0); MCHC 36.2 g/dL (31.0-37.0); MCV 85.9 fL (80.0-100.0); MEAN PLATELET VOLUME 9.7 fL (7.4-10.4); NEUTROPHILS 56.9 % (40-80); PLATELET COUNT 308 10x3/uL (130-400); RBC 4.25 10x6/uL (4.00-5.40); RDW 14.1 % (11.5-14.5); WBC 7.3 10x3/uL (4.8-10.8)
--- NOTE | 2019-08-14 05:00 | NUR ---
IO COLLECTED DAILY WEIGHT COLLECTED VSS. NO SIGNS OF ACUTE DISTRESS NOTED.
[2019-08-14 05:11] LABS: ANION GAP 9.2 mmol/L (8-16); CALCIUM 8.1 mg/dL (8.5-10.1); CARBON DIOXIDE 34.5 mmol/L (21.0-32.0); CREATININE - SERUM 0.9 mg/dL (0.6-1.3); POTASSIUM - SERUM 3.7 mmol/L (3.5-5.1)
[2019-08-14 05:41] LABS: TROPONIN-I 0.063 ng/mL (0.000-0.060)
--- NOTE | 2019-08-14 06:51 | NUR ---
DR SKELTON AND DR CONNER UPDATED ON PT STATUS NO NEW ORDERS RECIEVED.
--- NOTE | 2019-08-14 07:00 | NUR ---
PT REPORT RECEIVED FROM BUSINESS TAXES SPECIALIST NURSE. SHIFT ASSESSMENT COMPLETED. NO ACUTE SIGNS OF DISTRESS NOTED. PT ON A NITRO DRIP. WILL CONTINUE TO MONITOR
--- NOTE | 2019-08-14 09:00 | NUR ---
PT RESTING IN BED PLAYING ON PHONE. NO ACUTE SIGNS OF DISTRESS NOTED. PT TOLERATING AM MEDS WELL. WILL CONTINUE TO MONITOR
[2019-08-14 09:38] LABS: LDL-HDL RATIO 0.9 ratio (1.5-3.5)
--- NOTE | 2019-08-14 11:00 | NUR ---
PT EATING MEAL TRAY. NO ACUTE SIGNS OF DISTRESS NOTED. REASSESSMENT COMPLETED. WILL CONTINUE TO MONITOR
--- NOTE | 2019-08-14 12:00 | NUR ---
PT HAD A 9 BEAT RUN OF VTACH. LIZZIE ROSALES APRN PAGED AND NOTIFIED. ORDER RECEIVED TO START PT ON AMIODERONE 200 MG DAILY. EKG OBTAINED AND PLACED IN CHART. WILL CONTINUE TO MONITOR
--- NOTE | 2019-08-14 13:00 | NUR ---
PT RESTING IN BED COMFORTABLY. NO ACUTE SIGNS OF DISTRESS NOTED. WILL CONTINUE TO MONITOR
--- NOTE | 2019-08-14 15:00 | NUR ---
PT RESTING IN BED PLAYING GAME ON TABLET. REASSESSMENT COMPLETED. WILL CONTINUE TO MONITOR
--- NOTE | 2019-08-14 17:00 | NUR ---
PT RESTING IN BED COMFORTABLY. PLAYING ON TABLET. NO SIGNS OF DISTRESS NOTED. WILL CONTINUE TO MONITOR
--- NOTE | 2019-08-14 19:00 | NUR ---
PT LYING IN BED WATCHING TV, PT AWAKE AND ALERT, MONITORS ON AND WORKING, VITALS STABLE, CALL LIGHT WITHIN REACH, WILL CONTINUE TO OBSERVE.
--- NOTE | 2019-08-14 19:00 | NUR ---
SHIFT ASSESSMENT COMPLETED. PT CARE ASSUMED. MONITORS ON AND WORKING, VITALS STABLE, CALL LIGHT WITHIN REACH, PT AWAKE AND ALERT. NO SIGNS/SYMPTOMS OF PAIN OR DISCOMFORT NOTED. WILL CONTINUE TO OBSERVE.
--- NOTE | 2019-08-14 23:00 | NUR ---
PT RESTING CALMLY IN BED, PT NPO AT MIDNIGHT, PT DENIES ANY COMPLAINT OF PAIN OR DISCOMFORT AT THIS TIME, CALL LIGHT WITHIN REACH, SEE FLOW SHEET FOR FURTHER DETAILS. WILL CONTINUE TO OBSERVE.
[2019-08-15] VITALS (25 sets, daily range): BP systolic 105–177; BP diastolic 59–165
--- NOTE | 2019-08-15 01:00 | NUR ---
PT LYING IN BED RESTING. MONITORS ON AND WORKING, VITALS STABLE, WILL CONTINUE TO OBSERVE.
--- NOTE | 2019-08-15 03:00 | NUR ---
NO CHANGES, PT RESTING, MONITORS ON AND WORKING, VITALS STABLE, CALL LIGHT WITHIN REACH, SEE FLOW SHEET FOR FURTHER DETAILS. WILL CONTINUE TO OBSERVE.
--- NOTE | 2019-08-15 05:00 | NUR ---
PT SITTING UP IN BED AWAKE AND ALERT, NO SIGNS/SYMPTOMS OF PAIN OR DISCOMFORT NOTED AT THIS TIME, CALL LIGHT WITHIN REACH, WILL CONTINUE TO OBSERVE.
[2019-08-15 05:05] LABS: BASOPHILS 0.1 % (0-2); EOSINOPHILS 0.9 % (0-7); HEMATOCRIT 37.2 % (36.0-48.0); HEMOGLOBIN 12.6 g/dL (12-16); IMMATURE GRANULOCYTES 0.4 % (0-5); LYMPHOCYTES 37.1 % (15-50); MCH 29.5 pg (26.0-34.0); MCHC 33.9 g/dL (31.0-37.0); MCV 87.1 fL (80.0-100.0); MEAN PLATELET VOLUME 9.3 fL (7.4-10.4); NEUTROPHILS 45.5 % (40-80); PLATELET COUNT 283 10x3/uL (130-400); RBC 4.27 10x6/uL (4.00-5.40); RDW 14.3 % (11.5-14.5); WBC 6.9 10x3/uL (4.8-10.8)
[2019-08-15 05:21] LABS: ANION GAP 5.1 mmol/L (8-16)
[2019-08-15 05:28] LABS: POTASSIUM - SERUM 3.1 mmol/L (3.5-5.1)
--- NOTE | 2019-08-15 07:00 | NUR ---
PT REPORT RECEIVED FROM FILTER TANK TENDER NURSE. NO ACUTE SIGNS OF DISTRESS NOTED. SHIFT ASSESSMENT COMPLETED. CALLED DATABASE CONSULTANT TO VERIFY IF ANY MEDS NEEDED HELD. LOVENOX WAS THE ONLY MED TO BE HELD
[2019-08-15 08:47] LABS: CHOL - HDL RATIO 1.9 ratio (2.3-4.1); LDL-HDL RATIO 0.8 ratio (1.5-3.5)
--- NOTE | 2019-08-15 09:00 | NUR ---
DR CONNER AT BEDSIDE. EXPLAINING PROCEDURE. WILL CONTINUE TO MONITOR
--- NOTE | 2019-08-15 11:00 | NUR ---
PT RESTING IN BED WITH NO COMPLAINTS. REASSESSMENT COMPLETED. WILL CONTINUE TO MONITOR
--- NOTE | 2019-08-15 12:37 | NUR ---
PT OFF TO SINGE MACHINE OPERATOR NOW.
--- NOTE | 2019-08-15 13:00 | NUR ---
PT BACK FROM THEOLOGY PROFESSOR. CLEAN CATH. RT GROIN INCISION DRESSING CDI. WILL CONTINUE TO MONITOR
--- NOTE | 2019-08-15 15:00 | NUR ---
PT RESTING IN BED. CURRENTLY LYING FLAT IN BED. COMPLAINING OF BACK PAIN. REASSESSMENT COMPLETED. ALL PULSES PALPABLE. RT GROIN DRESSING CDI. WILL CONTINUE TO MONITOR
--- NOTE | 2019-08-15 17:00 | NUR ---
PT RESTING IN BED COMFORTABLY. SITTING UP MORE AND TOLERATING WELL. PT HAS NO COMPLAINTS AT THIS TIME. WILL CONTINUE TO MONITOR
--- NOTE | 2019-08-15 17:58 | MORECARE ---
CASE MANAGEMENT DISCHARGE SUMMARY PATIENT: ERASMO CUNNINGHAM UNIT: [id number] ADM DATE: 08/13/19 AGE: 83 : 35 SEX: F ROOM/BED: D.2301 AUTHOR: GRIFFIN HOBSON PHYSICIAN: REFERRING PHYSICIAN: BARRY VORA MD DATE OF SERVICE: 08/15/19 Discharge Plan Patient Name: ERASMO CUNNINGHAM Facility: [facility]:[place] : 1935 Planned Disposition: Home Anticipated Discharge Date: Discharge Date: Expected LOS: Initial Reviewer: [email or web address] Initial Review Date: 08/15/2019 Generated: 08/15/19 6:57 pm Patient Name: ERASMO CUNNINGHAM Page 85501 at 1758 All edits/amendments must be made on the electronic document DICTATION DATE: 08/15/191756 ENROLLMENT SERVICES VICE PRESIDENT: REJI 08/15/191756 RPT#: [id number] DC DATE: STATUS: ADM IN [address] [place] [address] END OF REPORT
--- NOTE | 2019-08-15 18:06 | MORECARE ---
CASE MANAGEMENT DISCHARGE SUMMARY PATIENT: ERASMO CUNNINGHAM UNIT: [id number] ADM DATE: 08/13/19 AGE: 83 : 35 SEX: F ROOM/BED: D.2301 AUTHOR: JAZLYNDOC PHYSICIAN: REFERRING PHYSICIAN: BARRY VORA MD DATE OF SERVICE: 08/15/19 Discharge Plan Patient Name: ERASMO CUNNINGHAM Facility: [facility]:[place] : 1935 Planned Disposition: Home Anticipated Discharge Date: Discharge Date: Expected LOS: Initial Reviewer: [email or web address] Initial Review Date: 08/15/2019 Generated: 08/15/19 7:06 pm DCP- Discharge Planning Updated by [email or web address]: Rubi Campbell on 08/15/19 5:[address] Patient Name: ERASMO CUNNINGHAM Admission Status: ER Accout number: [id number] Admission Date: 08-13-2019 : 1935 Admission Diagnosis: Attending: BARRY VORA Current LOS: 2 Anticipated DC Date: Planned Disposition: Home Primary Insurance: MEDICARE A & B Discharge Planning Comments: CM met with patient to complete initial dc planning assessment. CM educated patient on the CM role and verbal consent given by patient to complete assessment. Patient lives at home alone where she is independent with her care. At discharge patient plans to return home and feels this is a safe discharge. CM discussed availability of home health, rehab services, and medical equipment. Patient denied known discharge needs at this time. CM will continue to follow and will assist as needed with dc plans/needs. Solid Waste Division Supervisor: Rubi Campbell DCPIA - Discharge Planning Initial Assessment Updated by [email or web address]: Rubi Campbell on 08/15/19 6:01 pm * Is the patient Alert and Oriented? Yes * How many steps to enter\exit or inside your home? ELEVATOR * PCP VIELKA * Pharmacy [facility] * Preadmission Environment Home Alone * ADLs Independent * Equipment None * List name and contact numbers for known caregivers / representatives who currently or will assist patient after discharge: TORI MERCER - [facility] - [phone] * Verbal permission to speak to the caregivers and representatives has been obtained from the patient. Yes * Community resources currently utilized None * Additional services required to return to the preadmission environment? No * Can the patient safely return to the preadmission environment? Yes * Has this patient been hospitalized within the prior 30 days at any hospital? No Last DP export: 08/15/19 4:58 p Patient Name: ERASMO CUNNINGHAM Page [id number] at 1806 All edits/amendments must be made on the electronic document DICTATION DATE: 08/15/191805 TEACHER ASSOCIATE: REJI 08/15/191805 RPT#: [id number] DC DATE: STATUS: ADM IN [facility] [address] [place] [address] END OF REPORT
--- NOTE | 2019-08-15 19:00 | NUR ---
Report received from off going nurse. Pt is sitting up in bed working on her crossword puzzles. Initial assessment completed, see flowsheet for details. Pt denies needs at this time. No s/s of distress noted. Will continue to monitor.
--- NOTE | 2019-08-15 21:00 | NUR ---
Pt is resting in bed with eyes open at this time. Initial assessment completed, see flowsheet for details. No s/s of distress noted. Will continue to monitor.
--- NOTE | 2019-08-15 23:00 | NUR ---
Reassessment completed, see flowsheet for details. Pt is laying in bed with eyes closed at this time. No needs voiced/noted. No s/s of distress. Will continue to monitor.
[2019-08-16] VITALS (11 sets, daily range): BP systolic 110–147; BP diastolic 61–117
--- NOTE | 2019-08-16 01:00 | NUR ---
Pt is laying in bed with eyes closed. No s/s of distress noted. Will continue to monitor.
--- NOTE | 2019-08-16 03:00 | NUR ---
Reassessment completed, see flowsheet for details. Pt is laying in bed with eyes closed. No needs voiced/noted. No s/s of distress. Will continue to monitor.
[2019-08-16 04:30] LABS: BASOPHILS 0.6 % (0-2); EOSINOPHILS 2.6 % (0-7); HEMATOCRIT 34.7 % (36.0-48.0); HEMOGLOBIN 11.5 g/dL (12-16); IMMATURE GRANULOCYTES 0.6 % (0-5); MCH 29.2 pg (26.0-34.0); MCHC 33.1 g/dL (31.0-37.0); MCV 88.1 fL (80.0-100.0); MEAN PLATELET VOLUME 9.5 fL (7.4-10.4); MONOCYTES 14.1 % (2-11); NEUTROPHILS 49.1 % (40-80); PLATELET COUNT 259 10x3/uL (130-400); RBC 3.94 10x6/uL (4.00-5.40); RDW 14.5 % (11.5-14.5); WBC 6.6 10x3/uL (4.8-10.8)
--- NOTE | 2019-08-16 05:00 | NUR ---
AM labs reviewed and treated per protocol. Pt is laying in bed watching TV. No needs voiced/noted at this time. No s/s of distress. Will continue to monitor.
[2019-08-16 05:02] LABS: CALCIUM 7.7 mg/dL (8.5-10.1); CARBON DIOXIDE 30.5 mmol/L (21.0-32.0); CHLORIDE - SERUM 98 mmol/L (98-107); GLUCOSE 81 mg/dL (74-106); MAGNESIUM - SERUM 1.4 mg/dL (1.8-2.4); PHOSPHOROUS 2.6 mg/dL (2.5-4.9); POTASSIUM - SERUM 3.6 mmol/L (3.5-5.1); SODIUM 133 mmol/L (136-145); eGFR NON AFRICAN AMERICAN 85 mL/min (90-120)
[2019-08-16 05:08] LABS: CALC OSMOLALITY 266 mosm/kg (275-300); CREATININE - SERUM 0.7 mg/dL (0.6-1.3); UREA NITROGEN 17 mg/dL (7-18)
--- NOTE | 2019-08-16 07:00 | NUR ---
PT RESTING IN BED COMFORTABLY. EATING BREAKFAST. ABDIEL HERNÁNDEZ PUTTING IN TRANSFER ORDER. SHIFT ASSESSMENT COMPLETED. WILL CONTINUE TO MONITOR
--- NOTE | 2019-08-16 10:22 | NUR ---
CALLED REPORT TO JEFF ON MED SURG. PREPARING TO TRANSFER PT OVER TO FLOOR.
--- NOTE | 2019-08-16 10:55 | NUR ---
ARRIVES TO UNIT PER BED, ALERT AND O, DENIES PAIN, 2 SL TO LFA, NO REDDNESS NOTED, O2 PER NC
--- NOTE | 2019-08-16 13:44 | NUR ---
Nutrition follow-up: NPO for heart cath today PO intake of regular diet has been ~60% average of last 4 meals labs reviewed Tx to floor after procedure RDN following.
--- NOTE | 2019-08-16 19:22 | NUR ---
1800 RESTING IN BED, NO DISTRESS NOTED, NPO AFTER MN FOR CT TOMORROW
--- NOTE | 2019-08-16 19:30 | NUR ---
A&O X 4. DENIES PAIN/N/V. REPORTS SHE HAS NOT PASSED A BOWEL MOVEMENT IN SEVERAL DAYS. REPORTS SHE HAS BEEN PASSING GAS. NO NEEDS AT THSI TIME, WILL CONTINUE TO MONITOR.
[2019-08-17] VITALS: BP 117/63
--- NOTE | 2019-08-17 03:21 | NUR ---
I have reviewed this patient and I concur with the Shift Assessment completed by the Licensed Practical Nurse today this shift.
[2019-08-17 05:06] LABS: BASOPHILS 0.4 % (0-2); EOSINOPHILS 3.9 % (0-7); HEMATOCRIT 35.7 % (36.0-48.0); IMMATURE GRANULOCYTES 0.4 % (0-5); LYMPHOCYTES 26.5 % (15-50); MCH 29.5 pg (26.0-34.0); MCHC 33.6 g/dL (31.0-37.0); MCV 87.7 fL (80.0-100.0); MEAN PLATELET VOLUME 9.4 fL (7.4-10.4); MONOCYTES 14.2 % (2-11); NEUTROPHILS 54.6 % (40-80); PLATELET COUNT 268 10x3/uL (130-400); RBC 4.07 10x6/uL (4.00-5.40); RDW 14.5 % (11.5-14.5); WBC 7.1 10x3/uL (4.8-10.8)
[2019-08-17 05:13] LABS: ANION GAP 8.5 mmol/L (8-16); CALCIUM 7.7 mg/dL (8.5-10.1); CARBON DIOXIDE 28.6 mmol/L (21.0-32.0); CREATININE - SERUM 0.8 mg/dL (0.6-1.3); MAGNESIUM - SERUM 1.4 mg/dL (1.8-2.4); PHOSPHOROUS 2.4 mg/dL (2.5-4.9); POTASSIUM - SERUM 3.1 mmol/L (3.5-5.1)
--- NOTE | 2019-08-17 07:38 | NUR ---
ALERT AND ORIENTED. LUNGS CLEAR BILATERALLY. HEART SOUNDS S1 AND S2 HEARD IN ALL JONES. BOWEL SOUNDS ACTIVE X 4. SKIN INTACT WITHOUT REDNESS. IV X 2 TO LFA PATENT WITHOUT REDNESS. O2 IN PLACE AT 1LNC. WILL ATTEMPT TO WEAN TODAY. DENIES NEEDS. FALL PRECAUTIONS IN PLACE. CALL OSWALD AND PERSONAL ITEMS IN REACH. WILL CONTINUE TO MONITOR.
[2019-08-17 08:39] VITALS: BP 155/80
[2019-08-17 12:46] VITALS: BP 101/68
--- NOTE | 2019-08-17 13:25 | OP ---
PATIENT NAME: ERASMO CUNNINGHAM MEDICAL RECORD: [id number] :35 LOCATION:D.MS [id number] ADMISSION DATE:08/13/19 SURGEON: ARIN CONNER MD DATE OF OPERATION: 08/15/2019 CATH REPORT PLUS RENAL ARTERIOGRAM PROCEDURE: Left heart catheterization, selective coronary angiography, right femoral artery approach. CATHETERS: A 5-Wallisian sheath, 5/4 left and right Aidee, 5/4 pig. The procedure was well tolerated. The patient returned to so, sheath removed. ExoSeal device placed. FINDINGS: Left ventriculography, 30-degree MCKEON view shows mild apical hypokinesis. Overall, function is preserved at 50%. CORONARY ANATOMY: LEFT MAIN: Left main is free of disease. LAD: Free of disease in the diagonal system. 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 RIGHT CORONARY ARTERY: Dominant artery, gives rise to PDA, free of disease. IMPRESSION: The catheter was then withdrawn below the level of the diaphragm for renal arteriography. Left ventriculography was performed secondary to a hypertensive crisis despite 4 medications. RENAL ARTERIOGRAM FINDINGS: 1. Right renal artery. Right renal artery is a smooth-walled vessel, free of disease. The right renal artery is selectively engaged. 2. The left renal artery is sub-selectively engaged, is smooth-walled vessel, free of disease. IMPRESSION: Normal left ventricular function, normal coronary anatomy with the exception of normal circ. No evidence of renovascular disease. TRANSINT:[id number] Voice Confirmation ID: [id number] DOCUMENT ID: [id number] ARIN CONNER MD at 1325 CC: [id number] DICTATION DATE: 08/15/19 1316 LOCOMOTIVE LUBRICATING SYSTEMS CLERK: 08/15/19 1511 ADM IN [facility] [address] [place] [address]
--- NOTE | 2019-08-17 13:25 | EC ---
PATIENT:ERASMO CUNNINGHAM DATE OF SERVICE: 08/13/19 SEX: F MEDICAL RECORD: [id number] DATE OF : 35 LOCATION:D.MS [place] AGE OF PATIENT: 83 ADMISSION DATE: 08/13/19 REFERRING PHYSICIAN: INTERPRETING PHYSICIAN: ARIN CONNER MD ECHOCARDIOGRAM REPORT ECHO CHARGES 4 ECHO COMPLETE Date: 08/14/19 CLINICAL DIAGNOSIS: CHF W/ PULMONARY EDEMA ECHOCARDIOGRAPHIC MEASUREMENTS (adult normal given) AC root (d.<3.7cm) 2.8 cm LV Septum d (<1.2 cm> 1.5 cm Valve Excursion 1.4 cm LV Septum (systole) 1.8 cm Left Atria (s.<4.0cm> 4.3 cm LVPW d(<1.2cm) 1.0 cm RV (d.<2.3cm) 3.1 cm LVPW (sytole) 1.1 cm LV diastole(<5.6CM) 4.0 cm MV E-F(>70mm/sec) cm LV systole 3.2 cm LVOT Diameter 1.9 cm MV exc.(>10mm) cm Est.ejection fraction (50-75%) % DOPPLER: LVIT cm/sec A 49 cm/sec E 69 cm/sec LA cm/sec RVSP 44.6 mmHg LVOT 68 cm/sec AOP1/2T m/s Asc. Ao 146 cm/sec RVOT 42 cm/sec RA cm/sec PA 73 cm/sec AV Gradient Peak 8.5 mmHg AV Mean 3.9 mmHg AV Area 1.4 cm MV Gradient Peak 4.2 mmHg MV Mean 1.8 mmHg MV Area cm COMMENTS: Patternmaker Helper: Marquis PATRICIO Reclamation Engineer: 3 Dr. Lux TAPE# PACS Pericardial Effusion N DATE OF SERVICE: Adequate 2-D, color-flow imaging, spectral Doppler, and M-Mode. LVH is present. LV internal dimension is normal. Wall motion is normal. EF is greater than or equal to 55%. Aortic valve is tricuspid. There is no evidence of stenosis by Doppler interrogation. Left atrium is mildly dilated at 4.3 cm. Mitral valve is thickened. Mild MR. Right-sided chamber is grossly normal. Svih-ga-dxsgrxme TR. ECHOCARDIOGRAM REPORT [id number] ERASMO CUNNINGHAM TRANSINT:[id number] Voice Confirmation ID: [id number] DOCUMENT ID: [id number] ARIN CONNER MD at 1325 CC: [id number] DICTATION DATE: 08/15/19 1353 PHARMACY BUYER: 08/15/19 1549 ADM IN [facility] [id number] [place] [address]
[2019-08-17 14:52] LABS: ANION GAP 8.8 mmol/L (8-16); CALCIUM 7.8 mg/dL (8.5-10.1); CARBON DIOXIDE 30.1 mmol/L (21.0-32.0); MAGNESIUM - SERUM 1.5 mg/dL (1.8-2.4)
[2019-08-17 14:54] LABS: PHOSPHOROUS 3.3 mg/dL (2.5-4.9); POTASSIUM - SERUM 3.9 mmol/L (3.5-5.1)
[2019-08-17 17:34] VITALS: BP 122/63
--- NOTE | 2019-08-17 17:42 | NUR ---
RESTING IN BED. DENIES NEEDS. WILL CONTINUE TO MONITOR.
[2019-08-17 20:00] VITALS: BP 133/71
--- NOTE | 2019-08-17 23:38 | NUR ---
PATIENT RESTING IN BED WITH EYES CLOSED. NO S/S OF DISTRESS. NO COMPLAINTS AT THIS TIME. PATIENT HAS TWO L FOREARM IV SALINE LOC. BOTH IVS ARE PATENT WITHOUT REDNESS, SWELLING, OR TENDERNESS. PATIENT IS ON 1L O2 NASAL CANNULA. PATIENT HAS VELARDE. CALL LIGHT IN PLACE. WILL CONTIUE TO MONITOR.
[2019-08-18] VITALS (10 sets, daily range): BP systolic 90–148; BP diastolic 50–101
--- NOTE | 2019-08-18 05:36 | NUR ---
I have reviewed this patient and I concur with the Shift Assessment completed by the Licensed Practical Nurse today this shift.
[2019-08-18 07:12] LABS: BASOPHILS 0.7 % (0-2); EOSINOPHILS 4.1 % (0-7); HEMOGLOBIN 12.1 g/dL (12-16); IMMATURE GRANULOCYTES 0.6 % (0-5); LYMPHOCYTES 27.8 % (15-50); MCH 29.1 pg (26.0-34.0); MCHC 32.7 g/dL (31.0-37.0); MCV 88.9 fL (80.0-100.0); MEAN PLATELET VOLUME 9.7 fL (7.4-10.4); MONOCYTES 13.7 % (2-11); NEUTROPHILS 53.1 % (40-80); PLATELET COUNT 248 10x3/uL (130-400); RBC 4.16 10x6/uL (4.00-5.40); RDW 14.8 % (11.5-14.5); WBC 6.9 10x3/uL (4.8-10.8)
[2019-08-18 07:26] LABS: ANION GAP 8.7 mmol/L (8-16); CALCIUM 8.2 mg/dL (8.5-10.1); CARBON DIOXIDE 29.8 mmol/L (21.0-32.0); CREATININE - SERUM 0.8 mg/dL (0.6-1.3); PHOSPHOROUS 2.6 mg/dL (2.5-4.9); POTASSIUM - SERUM 3.5 mmol/L (3.5-5.1)
--- NOTE | 2019-08-18 07:51 | NUR ---
ALERT AND ORIENTED. LUNGS CLEAR BILATERALLY. HEART SOUNDS S1 AND S2 HEARD IN ALL JONES. BOWEL SOUNDS HYPOACTIVE X 4. SPOKE WITH ABDIEL REHAB AIDE TO GET ONE TIME DOSE LACTULOSE FOR PATIENT TO HAVE BM. ORDER PLACED BY REHAB AIDE. SKIN INTACT WITHOUT REDNESS. HAVING PANCREAS BIOPSY TODAY PER PATIENT AND IR BUT NO CONSENT ORDERS. NPO ORDERS PLACED BY IR MD. DENIES NEEDS. BED LOW. FALL PRECAUTIONS IN PLACE. CALL OSWALD AND PERSONAL ITEMS IN REACH. WILL CONTINUE TO MONITOR.
--- NOTE | 2019-08-18 09:26 | NUR ---
CONSENTS SIGNED FOR PROCEDURE. ONE TIME LACTULOSE HELD PER IR. WILL GIVE AFTER BIOPSY.
[2019-08-18 09:27] LABS: APTT 32.2 SECONDS (22.8-39.4); INR 1.01 (0.85-1.17); PROTIME 13.3 SECONDS (11.6-15.0)
--- NOTE | 2019-08-18 11:39 | NUR ---
PATIENT RETURNED FROM BIOPSY. VITALS STABLE. GIVEN LACTULOSE FROM AM ORDER. WILL CONTINUE TO MONITOR.
--- NOTE | 2019-08-18 12:59 | NUR ---
RESTING IN BED. VITALS REMAIN STABLE. DENIES NEEDS. WILL CONTINUE TO MONITOR.
--- NOTE | 2019-08-18 15:46 | NUR ---
RESTING IN BED. SON AT BEDSIDE. DENIES NEEDS. WILL CONTINUE TO MONITOR.
--- NOTE | 2019-08-18 18:03 | NUR ---
SUPPOSITORIES GIVEN PER ORDER. STOOL FELT INSIDE RECTUM AND DIGITALLY REMOVED.
--- NOTE | 2019-08-18 19:30 | NUR ---
PT SITTING ON BEDPAN UPON ENTERING ROOM, TRYING TO HAVE BM. AOX4. STATES SHE DOES NOT REMEMBER THE LAST BM SHE HAD. IV LEFT FA X2 SL. SCDS ON. VELARDE IN PLACE. DENIES NEEDS. STATES SHE NEEDS LONGER ON BEDPAN. BED ALARM ON. WILL CTM
--- NOTE | 2019-08-18 22:00 | NUR ---
PT CONTINUES TO FEEL LIKE SHE HAS TO HAVE BOWEL MOVEMENT BUT IS UNABLE TO ON BEDPAN. OFFERED TO GET PT UP TO BEDSIDE COMMODE. PT WAS AGREEABLE. WHILE ASSISTED PT IN AMBULATING SHE BEGAN TO HAVE BM SUDDENLY. WAS ABLE TO GET PT TO BEDSIDE COMMODE. CHANGED LINENS. PT STATES ON BEDSIDE COMMODE FOR SEVERAL MINUTES. ONCE DONE, ASSISTED PT WITH CALVIN CARE AND BACK TO BED. PT HAD FILLED BEDSIDE COMMODE ABOUT [address] FULL OF BM. FIRST PART WAS HARD LARGE STOOL AND LAST HALF WAS SOFT. SOME BLOOD NOTED IN STOOL. CHECKED PT, PT HAS HEMORRHOID. STATES IT FEELS LIKE SOMETHING IS RIGHT THERE LIKE SHE STILL HAS TO GO TO BATHROOM. TOLD PT TO WAIT A FEW MINUTES BEFORE TRYING AGAIN NOT TO IRRITATE HEMORRHOID. PT AGREED. WILL CTM
[2019-08-19] VITALS: BP 117/65
[2019-08-19 04:00] VITALS: BP 132/69
[2019-08-19 06:41] LABS: BASOPHILS 0.2 % (0-2); EOSINOPHILS 1.1 % (0-7); HEMATOCRIT 37.6 % (36.0-48.0); HEMOGLOBIN 12.6 g/dL (12-16); IMMATURE GRANULOCYTES 0.6 % (0-5); LYMPHOCYTES 21.6 % (15-50); MCH 29.6 pg (26.0-34.0); MCHC 33.5 g/dL (31.0-37.0); MCV 88.5 fL (80.0-100.0); MEAN PLATELET VOLUME 9.4 fL (7.4-10.4); MONOCYTES 8.9 % (2-11); NEUTROPHILS 67.6 % (40-80); PLATELET COUNT 202 10x3/uL (130-400); RBC 4.25 10x6/uL (4.00-5.40); RDW 14.8 % (11.5-14.5); WBC 8.1 10x3/uL (4.8-10.8)
[2019-08-19 07:15] LABS: ANION GAP 10.4 mmol/L (8-16); CALCIUM 8.3 mg/dL (8.5-10.1); CARBON DIOXIDE 27.4 mmol/L (21.0-32.0); CREATININE - SERUM 0.8 mg/dL (0.6-1.3); MAGNESIUM - SERUM 1.9 mg/dL (1.8-2.4); PHOSPHOROUS 3.1 mg/dL (2.5-4.9); POTASSIUM - SERUM 3.8 mmol/L (3.5-5.1)
--- NOTE | 2019-08-19 08:00 | NUR ---
PATIENT RESTING IN BED WITH EYES OPEN, LARGE BM REPORTED LAST PM. VELARDE CATH REMOVED WITH TIP INTACT. PATIENT TOLERATED WELL. ANTICPATES DISCHARGE LATER TODAY.
[2019-08-19 09:40] VITALS: BP 146/67
--- NOTE | 2019-08-19 10:49 | NUR ---
PT HAS BEEN STARTED ON BUMEX 1MG DAILY, CORDARONE 200 MG DAILY AND COREG 3.125MG TWICE DAILY. CALLED ABDIEL [facility], REGARDING IF THEY ARE TO BE CONTINUED AT D/C. CONFIRMED WITH HIM THAT THEY ARE. RX'S CALLED TO [facility] [address].
[2019-08-19] MEDS ORDERED: BUMETANIDE0.5 MG PO (10:51)
[2019-08-19] MEDS ORDERED: COREG 3.1253.125 MG PO (10:52)
[2019-08-19] MEDS ORDERED: AMIODARONE HCL200 MG PO (10:52)
--- NOTE | 2019-08-19 13:29 | NUR ---
IV REMOVED WITH NO REDNESS OR EDEMA AT SITE. DISCHARGE INSTRUCTIONS GIVEN WITH PATINET VOICING UNDERSTANDING. PATIENT TAKEN BY WHEELCHAIR TO PRIVATE CAR.
--- NOTE | 2019-08-19 18:24 | MORECARE ---
CASE MANAGEMENT DISCHARGE SUMMARY PATIENT: ERASMO CUNNINGHAM UNIT: [id number] ADM DATE: 08/13/19 AGE: 83 : 35 SEX: F ROOM/BED: D.2211 AUTHOR: GRIFFIN HOBSON PHYSICIAN: REFERRING PHYSICIAN: BARRY VORA MD DATE OF SERVICE: 08/19/19 Discharge Plan Patient Name: ERASMO CUNNINGHAM Facility: [facility]:[place] : 1935 Planned Disposition: Home Anticipated Discharge Date: Discharge Date: 08/19/2019 Expected LOS: Initial Reviewer: [email or web address] Initial Review Date: 08/15/2019 Generated: 08/19/19 7:24 pm Comments DCP- Discharge Planning Updated by [id number]: Rubi Campbell on 08/19/19 5:[address] Patient Name: ERASMO CUNNINGHAM Encounter No: [id number] : 1935 Primary Insurance: MEDICARE A & B Anticipated DC Date: Planned Disposition: Home External Planned Provider: : Dieter/Emani IMM SIGNED 08/19/19 @ 1030 DCP follow-up note: Patient and family in agreement with discharge plan. No changes to plan. Case management will follow and assist as needed. Rubi Campbell DCP- Discharge Planning Updated by [id number]: Rubi Campbell on 08/15/19 5:[address] Patient Name: ERASMO CUNNINGHAM Admission Status: ER Accout number: [id number] Admission Date: 08-13-2019 : 1935 Admission Diagnosis: Attending: BARRY VORA Current LOS: 2 Anticipated DC Date: Planned Disposition: Home Primary Insurance: MEDICARE A & B Discharge Planning Comments: CM met with patient to complete initial dc planning assessment. CM educated patient on the CM role and verbal consent given by patient to complete assessment. Patient lives at home alone where she is independent with her care. At discharge patient plans to return home and feels this is a safe discharge. CM discussed availability of home health, rehab services, and medical equipment. Patient denied known discharge needs at this time. CM will continue to follow and will assist as needed with dc plans/needs. [place]: Rubi Campbell DCPIA - Discharge Planning Initial Assessment Updated by [email or web address]: Rubi Campbell on 08/15/19 6:01 pm * Is the patient Alert and Oriented? Yes * How many steps to enter\exit or inside your home? ELEVATOR * PCP VIELKA * Pharmacy [facility] * Preadmission Environment Home Alone * ADLs Independent * Equipment None * List name and contact numbers for known caregivers / representatives who currently or will assist patient after discharge: TORI MERCER - VANGIE - [phone] * Verbal permission to speak to the caregivers and representatives has been obtained from the patient. Yes * Community resources currently utilized None * Additional services required to return to the preadmission environment? No * Can the patient safely return to the preadmission environment? Yes * Has this patient been hospitalized within the prior 30 days at any hospital? No Coverage Notice Reviewer: [id number] - Rubi Campbell Notice Issued Date-Time: 08/19/2019 10:30 Notice Type: IM Discharge Notice Notice Delivered To: Patient Relationship to Patient: Self Storage Specialist Name: Delivery Method: HAND - Hand Delivered Babs Days: Prior Verbal Notification: Recipient Understood Notice: Yes Recipient Signature: Yes Med Rec Note Co-signed by Attending: Coverage Notice Comment: Last DP export: 08/15/19 5:06 p Patient Name: ERASMO CUNNINGHAM Page 61161 at 1824 All edits/amendments must be made on the electronic document DICTATION DATE: 08/19/191823 ASSISTANT PROFESSOR OF MUSIC: REJI 08/19/191823 RPT#: [id number] DC DATE:08/19/19 STATUS: DIS IN [facility] [address] [place] [address] END OF REPORT
== END 2019-08-19 13:34 | disposition home or self-care (01) | DRG 280 ==
LOC: D.ER 14:07 → D.ICU 16:29 → D.MS 08-16 10:29
PROVIDERS: Emergency Medicine; Internal Medicine Interventional Cardiology; Internal Medicine Nephrology; Specialist; ADMIT Legal Medicine; ATTEND Legal Medicine
PROC: 4A023N7 Measurement of Cardiac Sampling and Pressure, Left Heart, Percutaneous Approach (ICD-10-PCS; 2019-08-15)
PROC: B4081ZZ Plain Radiography of Bilateral Renal Arteries using Low Osmolar Contrast (ICD-10-PCS; 2019-08-15)
PROC: B2111ZZ Fluoroscopy of Multiple Coronary Arteries using Low Osmolar Contrast (ICD-10-PCS; principal; 2019-08-15 12:30)
PROC: B2151ZZ Fluoroscopy of Left Heart using Low Osmolar Contrast (ICD-10-PCS; 2019-08-15 12:30)
DX: I21.4 Non-ST elevation (NSTEMI) myocardial infarction (principal); I50.33 Acute on chronic diastolic (congestive) heart failure; M48.56XA Collapsed vertebra, not elsewhere classified, lumbar region, initial encounter for fracture; E87.1 Hypo-osmolality and hyponatremia; I11.0 Hypertensive heart disease with heart failure; I50.9 Heart failure, unspecified; I49.5 Sick sinus syndrome; Z95.0 Presence of cardiac pacemaker; E03.9 Hypothyroidism, unspecified; I16.0 Hypertensive urgency; K59.00 Constipation, unspecified; E87.6 Hypokalemia

== ENCOUNTER 2019-09-22 14:39 | Inpatient (IN) | payer MEDICARE, OTHER ==
[~2019-09-22] VITALS: Ht 162.6 cm; Wt 51.3 kg
[~2019-09-22 14:39] MED LIST changes: +AMIODARONE HCL200 MG PO; +BUMETANIDE0.5 MG PO; +COREG 3.1253.125 MG PO
[2019-09-22 15:20] LABS: HEMATOCRIT 34.7 % (36.0-48.0); HEMOGLOBIN 11.6 g/dL (12-16); MCH 29.2 pg (26.0-34.0); MCHC 33.4 g/dL (31.0-37.0); MCV 87.4 fL (80.0-100.0); MEAN PLATELET VOLUME 8.6 fL (7.4-10.4); RBC 3.97 10x6/uL (4.00-5.40); RDW 14.5 % (11.5-14.5); WBC 9.3 10x3/uL (4.8-10.8)
[2019-09-22 15:44] LABS: CALC OSMOLALITY 262 mosm/kg (275-300); CALCIUM 8.6 mg/dL (8.5-10.1); CARBON DIOXIDE 28.1 mmol/L (21.0-32.0); CHLORIDE - SERUM 95 mmol/L (98-107); CREATININE - SERUM 1.4 mg/dL (0.6-1.3); GLUCOSE 103 mg/dL (74-106); POTASSIUM - SERUM 5.1 mmol/L (3.5-5.1); SODIUM 128 mmol/L (136-145); UREA NITROGEN 28 mg/dL (7-18); eGFR NON AFRICAN AMERICAN 38 mL/min (90-120)
[2019-09-22 15:46] LABS: INR 1.02 (0.85-1.17); PROTIME 13.4 SECONDS (11.6-15.0)
[2019-09-22 15:49] LABS: PLATELET COUNT 369 10x3/uL (130-400)
[2019-09-22 15:55] LABS: EOSINOPHILS 3 % (0-7); LYMPHOCYTES 31 % (15-50); NEUTROPHILS 67 % (40-80); PLATELET ESTIMATE NORMAL
[2019-09-22 16:05] LABS: NITRITE POSITIVE (NEGATIVE)
[2019-09-22 16:07] LABS: BILIRUBIN NEGATIVE (NEGATIVE); GLUCOSE NEGATIVE (NEGATIVE); KETONE NEGATIVE (NEGATIVE); UROBILINOGEN NORMAL (NORMAL)
[2019-09-22 16:08] LABS: BACTERIA MANY /hpf (NEGATIVE); EPITHELIAL CELLS 0-5 /hpf (0-5); RED CELLS - URINE 0-5 /hpf (0-5)
[2019-09-22 16:09] LABS: ALBUMIN 3.1 g/dL (3.4-5.0); ALKALINE PHOSPHATASE 91 U/L (30-120); ALT (SGPT) 26 U/L (10-68); AMYLASE - SERUM 130 U/L (25-115); BILIRUBIN - TOTAL 0.47 mg/dL (0.2-1.3); C-REACTIVE PROTEIN 9.8 mg/dL (0.0-0.9); CKMB 1.2 U/L (0.0-3.6); CREATINE KINASE 25 UL (21-215); LIPASE 433 U/L (73-393); PRO BNP 1651 pg/mL (0-450); PROTEIN - SERUM 7.4 g/dL (6.4-8.2); THYROID STIMULATING HORMONE 4.55 uIU/mL (0.36-3.74); TROPONIN-I < 0.017 ng/mL (0.000-0.060)
[2019-09-22 21:50] VITALS: BP 154/74; BMI 19.4
[2019-09-23 00:30] VITALS: BP 167/92
[2019-09-23 05:00] VITALS: BP 126/80; BP 153/84
[2019-09-23 06:23] LABS: HEMATOCRIT 33.8 % (36.0-48.0); HEMOGLOBIN 11.1 g/dL (12-16); IMMATURE GRANULOCYTES 2.8 % (0-5); LYMPHOCYTES 34.7 % (15-50); MCH 28.9 pg (26.0-34.0); MCHC 32.8 g/dL (31.0-37.0); MEAN PLATELET VOLUME 8.8 fL (7.4-10.4); MONOCYTES 12.3 % (2-11); NEUTROPHILS 48.2 % (40-80); PLATELET COUNT 386 10x3/uL (130-400); RBC 3.84 10x6/uL (4.00-5.40); WBC 7.8 10x3/uL (4.8-10.8)
[2019-09-23 06:52] LABS: ALBUMIN 2.7 g/dL (3.4-5.0); ANION GAP 10.1 mmol/L (8-16); BILIRUBIN - TOTAL 0.37 mg/dL (0.2-1.3); CALCIUM 7.9 mg/dL (8.5-10.1); CARBON DIOXIDE 27.2 mmol/L (21.0-32.0); PROTEIN - SERUM 6.7 g/dL (6.4-8.2)
[2019-09-23 06:53] LABS: CREATININE - SERUM 0.8 mg/dL (0.6-1.3); POTASSIUM - SERUM 4.3 mmol/L (3.5-5.1)
[2019-09-23 08:37] VITALS: BP 124/71
[2019-09-23 10:59] VITALS: Ht 162.6 cm; Wt 51.3 kg
[2019-09-23 13:13] VITALS: BP 110/68
[2019-09-23 16:18] VITALS: BP 100/70
[2019-09-23 19:58] VITALS: BP 122/63
[2019-09-24] VITALS: BP 115/62
[2019-09-24 04:00] VITALS: BP 130/65
[2019-09-24 06:35] LABS: ANION GAP 9.8 mmol/L (8-16); CALCIUM 7.9 mg/dL (8.5-10.1); CARBON DIOXIDE 25.7 mmol/L (21.0-32.0); CREATININE - SERUM 0.8 mg/dL (0.6-1.3)
[2019-09-24 06:38] LABS: POTASSIUM - SERUM 3.5 mmol/L (3.5-5.1)
[2019-09-24 07:01] LABS: BASOPHILS 0.7 % (0-2); EOSINOPHILS 2.1 % (0-7); HEMATOCRIT 31.2 % (36.0-48.0); HEMOGLOBIN 10.3 g/dL (12-16); IMMATURE GRANULOCYTES 2.7 % (0-5); LYMPHOCYTES 33.6 % (15-50); MCH 28.8 pg (26.0-34.0); MCV 87.2 fL (80.0-100.0); MONOCYTES 11.5 % (2-11); NEUTROPHILS 49.4 % (40-80); PLATELET COUNT 325 10x3/uL (130-400); RBC 3.58 10x6/uL (4.00-5.40); RDW 14.9 % (11.5-14.5); WBC 7.6 10x3/uL (4.8-10.8)
[2019-09-24 08:40] VITALS: BP 125/72
[2019-09-24 12:33] VITALS: BP 144/55
[2019-09-24 17:21] VITALS: BP 126/69
[2019-09-24 19:30] VITALS: BP 148/79
[2019-09-25] VITALS: BP 151/80
[2019-09-25 04:00] VITALS: BP 152/77
[2019-09-25 05:32] LABS: BASOPHILS 0.4 % (0-2); EOSINOPHILS 0.7 % (0-7); HEMATOCRIT 30.2 % (36.0-48.0); IMMATURE GRANULOCYTES 1.2 % (0-5); LYMPHOCYTES 29.6 % (15-50); MCH 28.6 pg (26.0-34.0); MCHC 33.1 g/dL (31.0-37.0); MCV 86.3 fL (80.0-100.0); MEAN PLATELET VOLUME 8.5 fL (7.4-10.4); MONOCYTES 9.1 % (2-11); PLATELET COUNT 291 10x3/uL (130-400); RDW 14.7 % (11.5-14.5); WBC 7.3 10x3/uL (4.8-10.8)
[2019-09-25 05:37] LABS: CALCIUM 7.8 mg/dL (8.5-10.1); CREATININE - SERUM 0.9 mg/dL (0.6-1.3)
[2019-09-25 08:50] VITALS: BP 141/78
[2019-09-25 13:23] VITALS: BP 116/65
[2019-09-25 16:19] VITALS: BP 140/71
--- NOTE | 2019-09-25 17:07 | MORECARE ---
CASE MANAGEMENT DISCHARGE SUMMARY PATIENT: ERASMO CUNNINGHAM UNIT: [id number] ADM DATE: 09/22/19 AGE: 84 : 35 SEX: F ROOM/BED: D.2225 AUTHOR: GRIFFIN HOBSON PHYSICIAN: REFERRING PHYSICIAN: BARRY VORA MD DATE OF SERVICE: 09/25/19 Discharge Plan Patient Name: ERASMO CUNNINGHAM Facility: [facility]:[place] : 1935 Planned Disposition: Assisted Living Anticipated Discharge Date: 09/26/19 Discharge Date: Expected LOS: 4 Initial Reviewer: [email or web address] Initial Review Date: 09/25/2019 Generated: 09/25/19 6:07 pm Comments DCP- Discharge Planning Updated by [email or web address]: Maura Deshpande on 09/25/19 4:[address] Patient Name: ERASMO CUNNINGHAM Admission Status: ER Accout number: [id number] Admission Date: 09-22-2019 : 1935 Admission Diagnosis: Attending: BARRY VORA Current LOS: 3 Anticipated DC Date: 09-26-2019 Planned Disposition: Assisted Living Primary Insurance: MEDICARE A & B Discharge Planning Comments: CM met with patient to complete initial dc planning assessment. CM educated patient on the CM role and verbal consent given by patient to complete assessment. Patient lives at [facility]. She states she has a walker. States she takes the elevator to the dining room, she has no stairs. At discharge patient plans to return and feels this is a safe discharge. CM discussed availability of home health, rehab services, and medical equipment. Patient denied known discharge needs at this time. Patient's son states he would like to know if he can get a wheelchair from [facility]. I called and spoke with Shyann there and she states they do have a wheelchair that the patient can borrow and she will put her name on it. States son can pick it up prior to taking her home tomorrow. I spoke with Dr. Satish Buckley's nurse, and they have her scheduled for a kyphoplasty for 11:30 on Wednesday. Son states that either him or his sister is staying with patient until after her kyphoplasty is done. CM will continue to follow and will assist as needed with dc plans/needs. Esthetic Dermatologist: Maura Jeramy DCPIA - Discharge Planning Initial Assessment Updated by [email or web address]: Maura Jeramy on 09/25/19 5:03 pm * Is the patient Alert and Oriented? Yes * How many steps to enter\exit or inside your home? 0/0 * PCP Dr. Vora * Pharmacy [facility] * Preadmission Environment Assisted Living * Facility Name [facility] * ADLs Independent * Equipment Walker * List name and contact numbers for known caregivers / representatives who currently or will assist patient after discharge: Chris Liang - joan - [phone] * Verbal permission to speak to the caregivers and representatives has been obtained from the patient. Yes * Community resources currently utilized None * Additional services required to return to the preadmission environment? Yes * Can the patient safely return to the preadmission environment? Yes * Has this patient been hospitalized within the prior 30 days at any hospital? No Patient Name: ERASMO CUNNINGHAM Page [id number] at 1707 All edits/amendments must be made on the electronic document DICTATION DATE: 09/25/191706 INTERVENTION ANALYST: REJI 09/25/191706 RPT#: [id number] DC DATE: STATUS: ADM IN [facility] [address] [place] [address] END OF REPORT
[2019-09-25 19:30] VITALS: BP 98/64
[2019-09-26] VITALS: BP 106/60
[2019-09-26 04:00] VITALS: BP 118/73
[2019-09-26 04:27] LABS: BASOPHILS 0.4 % (0-2); EOSINOPHILS 0.2 % (0-7); HEMATOCRIT 28.7 % (36.0-48.0); HEMOGLOBIN 9.4 g/dL (12-16); IMMATURE GRANULOCYTES 0.8 % (0-5); LYMPHOCYTES 31.7 % (15-50); MCH 28.3 pg (26.0-34.0); MCHC 32.8 g/dL (31.0-37.0); MCV 86.4 fL (80.0-100.0); MEAN PLATELET VOLUME 8.7 fL (7.4-10.4); MONOCYTES 10.7 % (2-11); NEUTROPHILS 56.2 % (40-80); PLATELET COUNT 311 10x3/uL (130-400); RBC 3.32 10x6/uL (4.00-5.40); RDW 14.7 % (11.5-14.5); WBC 8.6 10x3/uL (4.8-10.8)
[2019-09-26 04:40] LABS: ANION GAP 10.8 mmol/L (8-16); BILIRUBIN - TOTAL 0.59 mg/dL (0.2-1.3); CALCIUM 8.1 mg/dL (8.5-10.1); CARBON DIOXIDE 23.1 mmol/L (21.0-32.0); PROTEIN - SERUM 5.9 g/dL (6.4-8.2)
[2019-09-26 04:47] LABS: POTASSIUM - SERUM 3.9 mmol/L (3.5-5.1)
[2019-09-26 08:30] VITALS: BP 133/68
[2019-09-26 13:23] VITALS: BP 87/37
[2019-09-26] MEDS ORDERED: LEVOFLOXACIN500 MG PO (14:25)
--- NOTE | 2019-09-26 16:03 | MORECARE ---
CASE MANAGEMENT DISCHARGE SUMMARY PATIENT: ERASMO CUNNINGHAM UNIT: [id number] ADM DATE: 09/22/19 AGE: 84 : 35 SEX: F ROOM/BED: D.2225 AUTHOR: JAZLYNDOC PHYSICIAN: REFERRING PHYSICIAN: BARRY VORA MD DATE OF SERVICE: 09/26/19 Discharge Plan Patient Name: ERASMO CUNNINGHAM Facility: [facility]:[place] : 1935 Planned Disposition: Assisted Living Anticipated Discharge Date: 09/26/19 Discharge Date: Expected LOS: 4 Initial Reviewer: [email or web address] Initial Review Date: 09/25/2019 Generated: 09/26/19 5:02 pm Comments DCP- Discharge Planning Updated by [email or web address]: Maura Deshpande on 09/26/19 2:[address] Received discharge orders. I spoke with the son, he will transport her home. I informed him that she is unable to have an outpatient procedure done on the day of discharge and that is why she is discharging today for a kyphoplasty tomorrow. He understands and states will stay with her tonight. [place] [facility] notified of discharge and clinical faxed. Home today with resumption of [facility]. DCP- Discharge Planning Updated by [email or web address]: Maura Deshpande on 09/25/19 4:[address] Patient Name: ERASMO CUNNINGHAM Admission Status: ER Accout number: [id number] Admission Date: 09-22-2019 : 1935 Admission Diagnosis: Attending: BARRY VORA Current LOS: 3 Anticipated DC Date: 09-26-2019 Planned Disposition: Assisted Living Primary Insurance: MEDICARE A & B Discharge Planning Comments: CM met with patient to complete initial dc planning assessment. CM educated patient on the CM role and verbal consent given by patient to complete assessment. Patient lives at [facility]. She states she has a walker. States she takes the elevator to the dining room, she has no stairs. At discharge patient plans to return and feels this is a safe discharge. CM discussed availability of home health, rehab services, and medical equipment. Patient denied known discharge needs at this time. Patient's son states he would like to know if he can get a wheelchair from [facility]. I called and spoke with Shyann there and she states they do have a wheelchair that the patient can borrow and she will put her name on it. States son can pick it up prior to taking her home tomorrow. I spoke with Ina, Dr. Covarrubias's nurse, and they have her scheduled for a kyphoplasty for 11:30 on Wednesday. Son states that either him or his sister is staying with patient until after her kyphoplasty is done. CM will continue to follow and will assist as needed with dc plans/needs. Box Gluer: Maura Deshpande DCPIA - Discharge Planning Initial Assessment Updated by [email or web address]: Maura Deshpande on 09/25/19 5:03 pm * Is the patient Alert and Oriented? Yes * How many steps to enter\exit or inside your home? 0/0 * PCP Dr. Vora * Pharmacy [facility] * Preadmission Environment Assisted Living * Facility Name [facility] * ADLs Independent * Equipment Walker * List name and contact numbers for known caregivers / representatives who currently or will assist patient after discharge: Chris Liang - joan - [phone] * Verbal permission to speak to the caregivers and representatives has been obtained from the patient. Yes * Community resources currently utilized None * Additional services required to return to the preadmission environment? Yes * Can the patient safely return to the preadmission environment? Yes * Has this patient been hospitalized within the prior 30 days at any hospital? No External Providers External Provider: [facility] Next Contact Date: Service Request Date: Service Type: Resolution: Reviewer: Comments: Coverage Notice Reviewer: [id number] - Maura Deshpande Notice Issued Date-Time: 09/26/2019 15:49 Notice Type: IM Discharge Notice Notice Delivered To: Patient Relationship to Patient: Self Technical Communicator Name: Delivery Method: HAND - Hand Delivered Babs Days: Prior Verbal Notification: Recipient Understood Notice: Yes Recipient Signature: Yes Med Rec Note Co-signed by Attending: Coverage Notice Comment: IMM explained, signed, given, copy placed in MR Last DP export: 09/25/19 4:07 p Patient Name: ERASMO CUNNINGHAM Page 41533 at 1603 All edits/amendments must be made on the electronic document DICTATION DATE: 09/26/191601 SURGICAL TERRITORY MANAGER: REJI 09/26/191601 RPT#: [id number] DC DATE: STATUS: ADM IN [facility] [address] [place] [address] END OF REPORT
[2019-09-26 16:14] VITALS: BP 117/84
--- NOTE | 2019-09-27 15:19 | MORECARE ---
CASE MANAGEMENT DISCHARGE SUMMARY PATIENT: ERASMO CUNNINGHAM UNIT: [id number] ADM DATE: 09/22/19 AGE: 84 : 35 SEX: F ROOM/BED: D.2225 AUTHOR: JAZLYNDOC PHYSICIAN: REFERRING PHYSICIAN: BARRY VORA MD DATE OF SERVICE: 09/27/19 Discharge Plan Patient Name: ERASMO CUNNINGHAM Facility: [facility]:[place] : 1935 Planned Disposition: Assisted Living Anticipated Discharge Date: 09/26/19 Discharge Date: 09/26/2019 Expected LOS: 4 Initial Reviewer: [email or web address] Initial Review Date: 09/25/2019 Generated: 09/27/19 4:19 pm Comments DCP- Discharge Planning Updated by [email or web address]: Maura Deshpande on 09/26/19 2:[address] Received discharge orders. I spoke with the son, he will transport her home. I informed him that she is unable to have an outpatient procedure done on the day of discharge and that is why she is discharging today for a kyphoplasty tomorrow. He understands and states will stay with her tonight. [place] [facility] notified of discharge and clinical faxed. Home today with resumption of [facility]. DCP- Discharge Planning Updated by [email or web address]: Maura Deshpande on 09/25/19 4:[address] Patient Name: ERASMO CUNNINGHAM Admission Status: ER Accout number: [id number] Admission Date: 09-22-2019 : 1935 Admission Diagnosis: Attending: BARRY VORA Current LOS: 3 Anticipated DC Date: 09-26-2019 Planned Disposition: Assisted Living Primary Insurance: MEDICARE A & B Discharge Planning Comments: CM met with patient to complete initial dc planning assessment. CM educated patient on the CM role and verbal consent given by patient to complete assessment. Patient lives at [facility]. She states she has a walker. States she takes the elevator to the dining room, she has no stairs. At discharge patient plans to return and feels this is a safe discharge. CM discussed availability of home health, rehab services, and medical equipment. Patient denied known discharge needs at this time. Patient's son states he would like to know if he can get a wheelchair from [facility]. I called and spoke with Shyann there and she states they do have a wheelchair that the patient can borrow and she will put her name on it. States son can pick it up prior to taking her home tomorrow. I spoke with Ina, Dr. Covarrubias's nurse, and they have her scheduled for a kyphoplasty for 11:30 on Wednesday. Son states that either him or his sister is staying with patient until after her kyphoplasty is done. CM will continue to follow and will assist as needed with dc plans/needs. Plug Overwrap Machine Tender: Maura Deshpande DCPIA - Discharge Planning Initial Assessment Updated by [id number]: Maura Deshpande on 09/25/19 5:03 pm * Is the patient Alert and Oriented? Yes * How many steps to enter\exit or inside your home? 0/0 * PCP Dr. Vora * Pharmacy [facility] * Preadmission Environment Assisted Living * Facility Name [facility] * ADLs Independent * Equipment Walker * List name and contact numbers for known caregivers / representatives who currently or will assist patient after discharge: Chris Liang - joan - [phone] * Verbal permission to speak to the caregivers and representatives has been obtained from the patient. Yes * Community resources currently utilized None * Additional services required to return to the preadmission environment? Yes * Can the patient safely return to the preadmission environment? Yes * Has this patient been hospitalized within the prior 30 days at any hospital? No Coverage Notice Reviewer: [id number] - Maura Deshpande Notice Issued Date-Time: 09/26/2019 15:49 Notice Type: IM Discharge Notice Notice Delivered To: Patient Relationship to Patient: Self Transit Planning Director Name: Delivery Method: HAND - Hand Delivered Babs Days: Prior Verbal Notification: Recipient Understood Notice: Yes Recipient Signature: Yes Med Rec Note Co-signed by Attending: Coverage Notice Comment: IMM explained, signed, given, copy placed in MR Last DP export: 09/26/19 3:03 p Patient Name: ERASMO CUNNINGHAM Page 22160 at 5582 All edits/amendments must be made on the electronic document DICTATION DATE: 09/27/19 2826 LAND CLASSIFIER: REJI 09/27/19 1519 RPT#: [id number] DC DATE:09/26/19 STATUS: DIS IN [facility] [address] [place] [address] END OF REPORT
== END 2019-09-26 18:52 | disposition home health service (06) | DRG 542 ==
LOC: D.ER 14:39 → D.MS 17:34
PROVIDERS: Emergency Medicine; Family Medicine; ADMIT Legal Medicine; ATTEND Legal Medicine
DX: M48.54XA Collapsed vertebra, not elsewhere classified, thoracic region, initial encounter for fracture (principal); K85.90 Acute pancreatitis without necrosis or infection, unspecified; N39.0 Urinary tract infection, site not specified; E87.1 Hypo-osmolality and hyponatremia; M48.56XA Collapsed vertebra, not elsewhere classified, lumbar region, initial encounter for fracture; K59.00 Constipation, unspecified; D64.9 Anemia, unspecified

== ENCOUNTER 2019-09-29 10:05 | Inpatient (IN) | payer MEDICARE, OTHER ==
[~2019-09-29] VITALS: Ht 162.6 cm; Wt 49.9 kg
[~2019-09-29 10:05] MED LIST changes: +LEVOFLOXACIN500 MG PO
[2019-09-29] MEDS ORDERED: PACERONE100 MG PO (10:26)
[2019-09-29] MEDS ORDERED: ULTRAM50 MG PO (10:26)
[2019-09-29] MEDS ORDERED: COLACE100 MG PO (10:27)
[2019-09-29] MEDS ORDERED: K-TAB10 MEQ PO (10:29)
[2019-09-29] MEDS ORDERED: K-DUR20 MEQ PO (10:33)
[2019-09-29 11:01] VITALS: BP 105/56
[2019-09-29 11:02] LABS: BASOPHILS 0.2 % (0-2); EOSINOPHILS 0.3 % (0-7); HEMATOCRIT 30.2 % (36.0-48.0); HEMOGLOBIN 10.2 g/dL (12-16); IMMATURE GRANULOCYTES 1.5 % (0-5); LYMPHOCYTES 19.9 % (15-50); MCH 28.9 pg (26.0-34.0); MCHC 33.8 g/dL (31.0-37.0); MCV 85.6 fL (80.0-100.0); MEAN PLATELET VOLUME 8.6 fL (7.4-10.4); MONOCYTES 19.6 % (2-11); NEUTROPHILS 58.5 % (40-80); PLATELET COUNT 313 10x3/uL (130-400); RBC 3.53 10x6/uL (4.00-5.40); RDW 14.7 % (11.5-14.5); WBC 9.5 10x3/uL (4.8-10.8)
--- NOTE | 2019-09-29 11:17 | NUR ---
DURAGESIC PATCH REMOVED FROM L CHEST AND REPLACED WITH PATCH ON L BICEP
[2019-09-29 11:27] LABS: ANION GAP 12.8 mmol/L (8-16); CALCIUM 8.9 mg/dL (8.5-10.1); CARBON DIOXIDE 25.7 mmol/L (21.0-32.0); CREATININE - SERUM 1.2 mg/dL (0.6-1.3); POTASSIUM - SERUM 4.5 mmol/L (3.5-5.1)
[2019-09-29 11:36] LABS: ALBUMIN 2.4 g/dL (3.4-5.0); BILIRUBIN - TOTAL 0.6 mg/dL (0.2-1.3); MAGNESIUM - SERUM 1.8 mg/dL (1.8-2.4); PROTEIN - SERUM 6.9 g/dL (6.4-8.2); THYROID STIMULATING HORMONE 4.02 uIU/mL (0.36-3.74)
--- NOTE | 2019-09-29 11:43 | NUR ---
ALARM PLACE ON GOWN AND TESTED.
--- NOTE | 2019-09-29 11:43 | NUR ---
URINE TO LAB
--- NOTE | 2019-09-29 11:44 | NUR ---
INCONTINENT OF BOWEL, CLEANED PT AND NEW PULLUP ON PT
[2019-09-29 11:56] LABS: BILIRUBIN NEGATIVE (NEGATIVE); GLUCOSE NEGATIVE (NEGATIVE); KETONE NEGATIVE (NEGATIVE); NITRITE NEGATIVE (NEGATIVE); UROBILINOGEN NORMAL (NORMAL)
[2019-09-29 12:01] LABS: BACTERIA FEW /hpf (NEGATIVE); RED CELLS - URINE OCC /hpf (0-5)
--- NOTE | 2019-09-29 12:21 | NUR ---
ER ORDERED A MRI T SPINE AND L SPINE. PT HAS PACEMAKER, INFORMED DR BOB WHO INSTRUCTED ME TO CANCEL THESE EXAMS. HE DIDN'T WANT A CT AT THIS TIME. HE WILL LET DR SENIOR EVALUATE PATIENT. EXAMS CANCELLED.
--- NOTE | 2019-09-29 13:13 | NUR ---
CALLED REPORT TO ELIZABETH COVARRUBIAS BUT ROOM IS NOT CLEAN YET
--- NOTE | 2019-09-29 13:13 | NUR ---
PITTING EDEMA IN JESSICA LEGS/FEET
--- NOTE | 2019-09-29 14:24 | NUR ---
STAGE 2 ULCER ON L BUTTOCK
--- NOTE | 2019-09-29 14:25 | NUR ---
LARGE AMOUNT OF URINE PASSED.
[2019-09-29] MEDS ORDERED: LEVOTHYROXINE75 MCG (15:36)
[2019-09-29] MEDS ORDERED: PRAVACHOL40 MG PO (15:37)
[2019-09-29] MEDS ORDERED: BUMETANIDE TAB 1MG (15:37)
--- NOTE | 2019-09-29 16:45 | NUR ---
FROM THE ER VIA BED. ALERT, C/O BACK PAIN, PRN MED GIVEN FOR THAT. THE ER APPLIED A NEW PAIN PATCH. HER DAUGHTER AND SON ARE AT THE BEDSIDE ACKING ALOT OF QUESTIONS ABOUT HER RESENT BACK SURGERY, HER UTI'S, WANT A MRI ORDERED. WANTING TO TALK TO DOCTOR. SHE HAS SKIN BREAK DOWN TO HER COCCXY, HAS A PREVENTIVE DRESSING IN PLACE. HER LEGS ARE SWOLLEN, EVELATED THEM ON PILLOWS.
[2019-09-29 18:02] VITALS: BP 139/68
[2019-09-29 20:00] VITALS: BP 145/70
[2019-09-30] VITALS: BP 93/48
[2019-09-30 04:00] VITALS: BP 143/86
[2019-09-30 06:24] LABS: BASOPHILS 0.2 % (0-2); EOSINOPHILS 0.6 % (0-7); HEMATOCRIT 28.7 % (36.0-48.0); HEMOGLOBIN 9.5 g/dL (12-16); IMMATURE GRANULOCYTES 1.2 % (0-5); LYMPHOCYTES 34.8 % (15-50); MCH 28.4 pg (26.0-34.0); MCHC 33.1 g/dL (31.0-37.0); MCV 85.7 fL (80.0-100.0); MEAN PLATELET VOLUME 8.4 fL (7.4-10.4); MONOCYTES 17.7 % (2-11); NEUTROPHILS 45.5 % (40-80); PLATELET COUNT 272 10x3/uL (130-400); RBC 3.35 10x6/uL (4.00-5.40); RDW 14.5 % (11.5-14.5)
[2019-09-30 06:45] LABS: BILIRUBIN - TOTAL 0.49 mg/dL (0.2-1.3); CALCIUM 7.9 mg/dL (8.5-10.1); CARBON DIOXIDE 26.1 mmol/L (21.0-32.0); CREATININE - SERUM 0.9 mg/dL (0.6-1.3); PROTEIN - SERUM 5.7 g/dL (6.4-8.2)
[2019-09-30 06:50] LABS: ANION GAP 12.7 mmol/L (8-16); POTASSIUM - SERUM 3.8 mmol/L (3.5-5.1)
[2019-09-30 09:01] VITALS: BP 156/74
[2019-09-30 13:16] VITALS: BMI 18.8
[2019-09-30 13:28] VITALS: BP 130/74
[2019-09-30 17:01] VITALS: BP 120/63
--- NOTE | 2019-09-30 20:00 | NUR ---
RESTING IN BED WITH EYES CLOSED AROUSED EASILY TO VOICE, REPORTS PAIN WITH MOVEMENT, SEE SHIFT ASSESSMENT, CALL LIGHT IN REACH
[2019-09-30 22:08] VITALS: BP 155/78
[2019-10-01] VITALS: BP 141/75
[2019-10-01 04:00] VITALS: BP 134/62
[2019-10-01 07:06] LABS: BASOPHILS 0.3 % (0-2); EOSINOPHILS 0.7 % (0-7); HEMATOCRIT 28.1 % (36.0-48.0); HEMOGLOBIN 9.3 g/dL (12-16); IMMATURE GRANULOCYTES 2.1 % (0-5); LYMPHOCYTES 23.4 % (15-50); MCH 28.4 pg (26.0-34.0); MCHC 33.1 g/dL (31.0-37.0); MCV 85.9 fL (80.0-100.0); MEAN PLATELET VOLUME 8.6 fL (7.4-10.4); MONOCYTES 12.3 % (2-11); NEUTROPHILS 61.2 % (40-80); PLATELET COUNT 261 10x3/uL (130-400); RBC 3.27 10x6/uL (4.00-5.40); RDW 14.6 % (11.5-14.5); WBC 8.8 10x3/uL (4.8-10.8)
[2019-10-01 07:20] LABS: ANION GAP 11.9 mmol/L (8-16); CALCIUM 7.7 mg/dL (8.5-10.1); CARBON DIOXIDE 26.6 mmol/L (21.0-32.0); CREATININE - SERUM 0.9 mg/dL (0.6-1.3); POTASSIUM - SERUM 3.5 mmol/L (3.5-5.1)
--- NOTE | 2019-10-01 07:54 | NUR ---
PT SITTING UP IN BED. CONTACT PRECAUTIONS IN PLACE. FAMILY AT BEDSIDE. BED IN LOWEST POSITION. RR EVEN AND UNLABORED. DENIES NEEDS OR PAIN AT THIS TIME. CALL LIGHT WITHIN REACH. BED IN LOWEST POSITION. WILL CONTINUE TO MONITOR.
[2019-10-01 08:45] VITALS: BP 138/73
--- NOTE | 2019-10-01 11:10 | NUR ---
DELROY WET. REMOVED AND REPLACED WITH CLEAN DELROY. PURWICK IN PLACE AND ATTACHED TO SUCTION. BLANCHABLE REDNESS AND SMALL SKIN TEAR NOTED TO BOTTOM, BUTT PASTE APPLIED. REPOSITIONED TO RIGHT SIDE TO COMFORT. PAIN MEDICATION RECIEVED PER ORDER. DENIES NEEDS OR PAIN AT THIS TIME. CALL LIGHT WITHIN REACH. WILL CONTINUE TO MONITOR.
[2019-10-01 12:29] VITALS: BP 120/63
--- NOTE | 2019-10-01 13:00 | NUR ---
PT TURNED TO LEFT SIDE TO COMFORT. CALL LIGHT WITHIN REACH. BED IN LOWEST POSITION.
[2019-10-01 16:30] VITALS: BP 122/68
--- NOTE | 2019-10-01 17:12 | NUR ---
I have reviewed this patient and I concur with the Shift Assessment completed by the Licensed Practical Nurse today this shift.
[2019-10-01 20:00] VITALS: BP 151/79
--- NOTE | 2019-10-01 20:00 | NUR ---
RESTING IN BED, EYES CLOSED AROUSED EASILY, REPORTS BACK PAIN WITH ANY MOVEMENT ABD BINDER IN PLACE, SEE SHIFT ASSESSMENT, CALL LIGHT IN REACH
[2019-10-02 04:00] VITALS: BP 146/73
[2019-10-02 06:20] LABS: HEMATOCRIT 30.3 % (36.0-48.0); HEMOGLOBIN 9.8 g/dL (12-16); MCH 28.3 pg (26.0-34.0); MCHC 32.3 g/dL (31.0-37.0); MCV 87.6 fL (80.0-100.0); MEAN PLATELET VOLUME 8.5 fL (7.4-10.4); PLATELET COUNT 240 10x3/uL (130-400); RBC 3.46 10x6/uL (4.00-5.40); WBC 8.2 10x3/uL (4.8-10.8)
[2019-10-02 06:42] LABS: ANION GAP 11.4 mmol/L (8-16); CARBON DIOXIDE 25.6 mmol/L (21.0-32.0)
[2019-10-02 07:34] VITALS: BP 131/70
--- NOTE | 2019-10-02 07:35 | NUR ---
AWAKE, ALERT, ASKING FOR PAIN MED. PRN GIVEN FOR BACK/RT SIDE PAIN. STATES THE ABD BINDER HELP WTIH THE RIGHT SIDED ABD PAIN. STILL HAS NOT HAD A BM. THE PURE WICK IS BEING USED. THE DAUGHTER IS AT THE BEDSIDE.
[2019-10-02 10:54] LABS: ACANTHOCYTES OCC; CRENATED CELLS 1+; LYMPHOCYTES 28 % (15-50); MONOCYTES 6 % (2-11); NEUTROPHILS 55 % (40-80); PLATELET ESTIMATE NORMAL; ROULEAUX OCC
[2019-10-02 12:53] VITALS: BP 118/61
[2019-10-02 16:01] VITALS: BP 122/65
[2019-10-02 20:00] VITALS: BP 137/67
[2019-10-03] VITALS: BP 142/67
[2019-10-03 04:00] VITALS: BP 140/68
[2019-10-03 05:43] LABS: ANION GAP 9.9 mmol/L (8-16); CARBON DIOXIDE 28.6 mmol/L (21.0-32.0); CREATININE - SERUM 1.1 mg/dL (0.6-1.3); POTASSIUM - SERUM 3.5 mmol/L (3.5-5.1)
[2019-10-03 05:45] LABS: BASOPHILS 0.4 % (0-2); EOSINOPHILS 1.3 % (0-7); HEMATOCRIT 28.7 % (36.0-48.0); HEMOGLOBIN 9.5 g/dL (12-16); IMMATURE GRANULOCYTES 1.8 % (0-5); LYMPHOCYTES 30.4 % (15-50); MCH 28.4 pg (26.0-34.0); MCHC 33.1 g/dL (31.0-37.0); MCV 85.7 fL (80.0-100.0); NEUTROPHILS 53.1 % (40-80); PLATELET COUNT 248 10x3/uL (130-400); RBC 3.35 10x6/uL (4.00-5.40); RDW 14.7 % (11.5-14.5); WBC 9.4 10x3/uL (4.8-10.8)
[2019-10-03 08:41] VITALS: BP 112/62
--- NOTE | 2019-10-03 10:14 | MORECARE ---
CASE MANAGEMENT DISCHARGE SUMMARY PATIENT: ERASMO CUNNINGHAM UNIT: [id number] ADM DATE: 09/29/19 AGE: 84 : 35 SEX: F ROOM/BED: D.2233 AUTHOR: GRIFFIN HOBSON PHYSICIAN: REFERRING PHYSICIAN: BARRY VORA MD DATE OF SERVICE: 10/03/19 Discharge Plan Patient Name: ERASMO CUNNINGHAM [facility] [facility] 1935 Planned Disposition: Inpatient Rehab Anticipated Discharge Date: Discharge Date: Expected LOS: Initial Reviewer: [email or web address] Initial Review Date: 10/03/2019 Generated: 10/03/19 11:13 am DCPIA - Discharge Planning Initial Assessment Updated by [email or web address]: Maura Deshpande on 10/03/19 10:12 am * Is the patient Alert and Oriented? Yes * How many steps to enter\exit or inside your home? 0/0 * PCP Dr. Vora * Pharmacy [facility] * Preadmission Environment Assisted Living * Facility Name [facility] * ADLs Partial Dependent * Partial ADLs (Assistance needed) Ambulation * Equipment Walker * List name and contact numbers for known caregivers / representatives who currently or will assist patient after discharge: Chris Liang - [facility] - [phone] * Verbal permission to speak to the caregivers and representatives has been obtained from the patient. Yes * Community resources currently utilized Assisted Living Home Health * Please name any agencies selected above. [place] [facility] * Additional services required to return to the preadmission environment? Yes * Can the patient safely return to the preadmission environment? Yes * Has this patient been hospitalized within the prior 30 days at any hospital? Yes Patient Name: ERASMO CUNNINGHAM Page 20245 at 1014 All edits/amendments must be made on the electronic document DICTATION DATE: 10/03/19 1013 LOGISTICAL ENGINEER: REJI 10/03/19 1013 RPT#: [id number] DC DATE: STATUS: ADM IN [facility] [address] [place] [address] END OF REPORT
--- NOTE | 2019-10-03 10:24 | MORECARE ---
CASE MANAGEMENT DISCHARGE SUMMARY PATIENT: ERASMO CUNNINGHAM UNIT: [id number] ADM DATE: 09/29/19 AGE: 84 : 35 SEX: F ROOM/BED: D.2233 AUTHOR: JAZLYNDOC PHYSICIAN: REFERRING PHYSICIAN: BARRY VORA MD DATE OF SERVICE: 10/03/19 Discharge Plan Patient Name: ERASMO CUNNINGHAM Facility: [facility]:[place] : 1935 Planned Disposition: Inpatient Rehab Anticipated Discharge Date: Discharge Date: Expected LOS: Initial Reviewer: [email or web address] Initial Review Date: 10/03/2019 Generated: 10/03/19 11:24 am Comments DCP- Discharge Planning Updated by [email or web address]: Maura Deshpande on 10/03/19 9:[address] Patient Name: ERASMO CUNNINGHAM Admission Status: ER Accout number: [id number] Admission Date: 09-29-2019 : 1935 Admission Diagnosis: Attending: BARRY VORA Current LOS: 4 Anticipated DC Date: Planned Disposition: Inpatient Rehab Primary Insurance: MEDICARE A & B Discharge Planning Comments: CM met with patient to complete initial dc planning assessment. CM educated patient on the CM role and verbal consent given by patient to complete assessment. Patient lives at [facility] alone. States her son, Wild, is coming from [place] today. States her son, Chris, lives in [place] and he is the main residential care facility manager for her. States she believes her son has purchased a rollator walker. At discharge patient plans to return and feels this is a safe discharge. CM discussed availability of home health, rehab services, and medical equipment. Patient states she would like a referral to inpatient rehab at [facility]. CM will continue to follow and will assist as needed with dc plans/needs. Sheriff Officer: Maura Deshpande DCPIA - Discharge Planning Initial Assessment Updated by [email or web address]: Maura Deshpande on 10/03/19 10:12 am * Is the patient Alert and Oriented? Yes * How many steps to enter\exit or inside your home? 0/0 * PCP Dr. Vora * Pharmacy [facility] * Preadmission Environment Assisted Living * Facility Name [facility] * ADLs Partial Dependent * Partial ADLs (Assistance needed) Ambulation * Equipment Walker * List name and contact numbers for known caregivers / representatives who currently or will assist patient after discharge: Chris Liang - joan - [phone] * Verbal permission to speak to the caregivers and representatives has been obtained from the patient. Yes * Community resources currently utilized Assisted Living Home Health * Please name any agencies selected above. [facility] * Additional services required to return to the preadmission environment? Yes * Can the patient safely return to the preadmission environment? Yes * Has this patient been hospitalized within the prior 30 days at any hospital? Yes Last DP export: 10/03/19 9:14 am Patient Name: ERASMO CUNNINGHAM Page [id number] at 1024 All edits/amendments must be made on the electronic document DICTATION DATE: 10/03/19 1024 LOAN REPRESENTATIVE: REJI 10/03/19 1024 RPT#: [id number] DC DATE: STATUS: ADM IN [facility] [address] [place] [address] END OF REPORT
--- NOTE | 2019-10-03 12:05 | NUR ---
Rehab Note- Acute Inpatient Rhab prescreen order received. Will follow at this time for progress with therapy. Thank you for this referral! Bindu Bill RN CLinical Liaison, [facility] Re[facility]
[2019-10-03 13:03] VITALS: BP 93/43
--- NOTE | 2019-10-03 18:00 | NUR ---
HAS HAD 3 BM'S TODAY.
[2019-10-03 18:02] VITALS: BP 115/51
[2019-10-04] VITALS: BP 1165/68
[2019-10-04 09:18] VITALS: BP 114/64
[2019-10-04 13:06] VITALS: BP 119/63
[2019-10-04 14:21] LABS: HEMATOCRIT 28.4 % (36.0-48.0); HEMOGLOBIN 9.1 g/dL (12-16); MCH 28.1 pg (26.0-34.0); MEAN PLATELET VOLUME 8.7 fL (7.4-10.4); PLATELET COUNT 207 10x3/uL (130-400); RBC 3.24 10x6/uL (4.00-5.40); RDW 14.7 % (11.5-14.5); WBC 8.2 10x3/uL (4.8-10.8)
[2019-10-04 14:28] LABS: MCV 87.7 fL (80.0-100.0)
[2019-10-04 14:43] LABS: ALBUMIN 1.8 g/dL (3.4-5.0); ANION GAP 9.5 mmol/L (8-16); BILIRUBIN - TOTAL 0.49 mg/dL (0.2-1.3); CALCIUM 8.1 mg/dL (8.5-10.1); CARBON DIOXIDE 27.8 mmol/L (21.0-32.0); CREATININE - SERUM 1.1 mg/dL (0.6-1.3); PROTEIN - SERUM 5.2 g/dL (6.4-8.2)
[2019-10-04 14:47] LABS: POTASSIUM - SERUM 4.3 mmol/L (3.5-5.1)
--- NOTE | 2019-10-04 14:50 | NUR ---
WAS MEDICATED WITH MORPHINE PER ORDER FOR C/O PAIN RATING 8/10 ON PAIN SCALE.
--- NOTE | 2019-10-04 15:05 | NUR ---
NUTRITION F/U PER FAMILY PT HAD GOOD BREAKFAST THIS AM BUT HAS NOT FELT LIKE EATING MUCH SINCE THEN. ALSO TAKING SOME ENSURE. WILL CONTINUE TO PROVIDE DIET, MONITOR PO INTAKE. RD FOLLOWING
[2019-10-04 16:56] VITALS: BP 115/64
[2019-10-04 17:01] LABS: BASOPHILS 1 % (0-2); EOSINOPHILS 1 % (0-7); LYMPHOCYTES 52 % (15-50); MONOCYTES 4 % (2-11); NEUTROPHILS 42 % (40-80); PLATELET ESTIMATE NORMAL
--- NOTE | 2019-10-04 17:39 | NUR ---
I have reviewed this patient and I concur with the Shift Assessment completed by the Licensed Practical Nurse today this shift.
[2019-10-04 20:00] VITALS: BP 130/71
[2019-10-05] VITALS: BP 155/72
[2019-10-05 04:00] VITALS: BP 148/77
[2019-10-05 05:23] LABS: BASOPHILS 0.5 % (0-2); EOSINOPHILS 2.8 % (0-7); HEMOGLOBIN 8.8 g/dL (12-16); IMMATURE GRANULOCYTES 1.2 % (0-5); LYMPHOCYTES 29.6 % (15-50); MCH 28.4 pg (26.0-34.0); MCHC 32.6 g/dL (31.0-37.0); MCV 87.1 fL (80.0-100.0); MEAN PLATELET VOLUME 8.8 fL (7.4-10.4); MONOCYTES 13.4 % (2-11); NEUTROPHILS 52.5 % (40-80); PLATELET COUNT 232 10x3/uL (130-400); RDW 14.7 % (11.5-14.5); WBC 8.6 10x3/uL (4.8-10.8)
[2019-10-05 05:40] LABS: ANION GAP 10.7 mmol/L (8-16); CARBON DIOXIDE 24.7 mmol/L (21.0-32.0); POTASSIUM - SERUM 4.4 mmol/L (3.5-5.1)
[2019-10-05 09:03] VITALS: BP 126/65
[2019-10-05 12:10] VITALS: BP 114/61
--- NOTE | 2019-10-05 13:19 | NUR ---
PT SON INQUIRED ON FENTANYL PATCH AND MORPHINE ADMINISTRATION, ADVISED PER MAR PT PATCH IS DUE AT 1645 AND PT CAN HAVE ANOTHER DOSE OF MORPHINE AT 1430 MEDICATION IS Q4 PRN, NO OTHER NEEDS VOICED, ASSISTED PT WITH LINEN AND GOWN CHANGE, CONTINUE WITH PLAN OF CARE
[2019-10-05 17:24] VITALS: BP 112/56
--- NOTE | 2019-10-05 18:45 | NUR ---
I have reviewed this patient and I concur with the Shift Assessment completed by the Licensed Practical Nurse today this shift.
[2019-10-05 20:00] VITALS: BP 134/71
--- NOTE | 2019-10-05 20:00 | NUR ---
ALERT RESTING IN BED DENIES PAIN OR NEEDS AT THIS TIME, SEE SHIFT ASSESSMENT, CALL LIGHT IN REACH
[2019-10-06 04:00] VITALS: BP 127/55
[2019-10-06 06:14] LABS: BASOPHILS 0.6 % (0-2); EOSINOPHILS 2.7 % (0-7); HEMATOCRIT 27.6 % (36.0-48.0); IMMATURE GRANULOCYTES 1.1 % (0-5); MCH 28.7 pg (26.0-34.0); MCHC 32.6 g/dL (31.0-37.0); MCV 87.9 fL (80.0-100.0); MEAN PLATELET VOLUME 8.9 fL (7.4-10.4); MONOCYTES 12.6 % (2-11); PLATELET COUNT 225 10x3/uL (130-400); RBC 3.14 10x6/uL (4.00-5.40); RDW 14.9 % (11.5-14.5)
[2019-10-06 06:31] LABS: ANION GAP 10.5 mmol/L (8-16); CALCIUM 7.6 mg/dL (8.5-10.1); CARBON DIOXIDE 25.1 mmol/L (21.0-32.0); CREATININE - SERUM 0.8 mg/dL (0.6-1.3); POTASSIUM - SERUM 4.6 mmol/L (3.5-5.1)
--- NOTE | 2019-10-06 07:53 | NUR ---
AWAKE AND WITHOUT DISTRESS.ABDIEL PEREZ APN TO SEE PATIENT.CALL LIGHT IN REACH
--- NOTE | 2019-10-06 08:24 | NUR ---
I have reviewed this patient and I concur with the Shift Assessment completed by the Licensed Practical Nurse today this shift.
[2019-10-06 08:44] VITALS: BP 129/67
--- NOTE | 2019-10-06 10:54 | NUR ---
PT DOING MUCH BETTER TODAY, ALOT MORE AWAKE AND ALERT, SAT UP WITH PHYSICAL THERAPY AND ABLE TO PARTICIPATE TODAY. PAIN WAS AT A 5 DURING MED PASS AND ADMNISTERED PRN PAIN MED PO. SON AT BEDSIDE, CL IN REACH CONTINUE WITH PLAN OF CARE
[2019-10-06 13:25] VITALS: Ht 162.6 cm; Wt 49.9 kg
[2019-10-06 14:24] VITALS: BP 113/82
[2019-10-06 16:28] VITALS: BP 103/48
[2019-10-06 20:00] VITALS: BP 117/63
[2019-10-07] VITALS: BP 122/65
[2019-10-07 04:00] VITALS: BP 104/50
[2019-10-07 07:58] VITALS: BP 139/70
--- NOTE | 2019-10-07 09:00 | NUR ---
ALERT AND ORIENTED X4. FENTANYL PATCH NOTED TO LEFT SHOULDER. ABDOMEN DISTENDED WITH BOWEL SOUNDS NOTED X4. PRUINE JUICE GIVEN AND ENCOURAGED FLUID INTAKE. REPOSITIONED FOR COMFORT.HRRR AND NO PERIPHERAL EDEMA NOTED. IV TO RT. WRISTWITH IVF INFUSING AT PRESCRIBED RATE
[2019-10-07 12:24] VITALS: BP 133/74
[2019-10-07 16:28] VITALS: BP 117/60
--- NOTE | 2019-10-07 17:34 | NUR ---
DR VORA CAME INTO PT ROOM. PT IS AWAKE AND ALERT SITTING UP IN BED, WENT OVER FINDINGS OF PT SWOLLEN ANKLES WITH DR AND AND PAIN TO RT AKNLE, PER DR VORA ORDER 10MG LASIX FOR TODAY AND TOMORROW AND STOP FLUIDS. ASSISTED PT WITH DINNER TRAY AND TEETH THEN PLACED ORDERS FOR DR. NO OTHER NEEDS AT THIS TIME, SL PT IV, CONTINUE [facility] PLAN OF CARE
[2019-10-07 19:43] VITALS: BP 119/67
--- NOTE | 2019-10-07 20:00 | NUR ---
LYING IN BED. ALERT AND ORIENTED X4. RESP IRREG. O2 @ 2L/NC. INCONT OF URINE. LINENS CHANGED AT THIS TIME. REDNESS NOTED TO LABIA AND DRSG NOTED TO COCCYX. BRUISES NOTED TO BUE. EDEMA NOTED TO BLE. SCDS IN USE BILAT. SALINE LOCK NOTED TO RT WRIST. DENIES PAIN WHILE STILL. SR ELEVATED X2. CL IN REACH.
[2019-10-08] VITALS: BP 143/79
--- NOTE | 2019-10-08 00:45 | NUR ---
MEDICATED WITH ULTRAM FOR C/O PAIN IN BACK RATING 8. INCONT OF BOWELS. PERCARE PERFORMED. BUTT PASTE APPLIED TO LABIA AND GROIN. MEPILEX APPLIED TO COCCYX. CL IN REACH.
--- NOTE | 2019-10-08 01:53 | NUR ---
RESTING QUIETLY WITH EYES CLOSED. RESP NONLABORED. NO DISTRESS. CL IN REACH.
[2019-10-08 04:00] VITALS: BP 140/82
[2019-10-08 06:14] LABS: BASOPHILS 0.4 % (0-2); EOSINOPHILS 1.5 % (0-7); HEMATOCRIT 26.3 % (36.0-48.0); HEMOGLOBIN 8.6 g/dL (12-16); IMMATURE GRANULOCYTES 0.9 % (0-5); LYMPHOCYTES 40.2 % (15-50); MCH 28.4 pg (26.0-34.0); MCHC 32.7 g/dL (31.0-37.0); MCV 86.8 fL (80.0-100.0); MEAN PLATELET VOLUME 8.8 fL (7.4-10.4); MONOCYTES 10.3 % (2-11); NEUTROPHILS 46.7 % (40-80); PLATELET COUNT 259 10x3/uL (130-400); RBC 3.03 10x6/uL (4.00-5.40); RDW 14.9 % (11.5-14.5); WBC 8.2 10x3/uL (4.8-10.8)
[2019-10-08 06:29] LABS: ANION GAP 10.3 mmol/L (8-16); CALCIUM 7.7 mg/dL (8.5-10.1); CARBON DIOXIDE 24.7 mmol/L (21.0-32.0); CREATININE - SERUM 0.8 mg/dL (0.6-1.3)
--- NOTE | 2019-10-08 08:03 | NUR ---
ALERT AND ORIENTED X4 WITH SON PRESENT. DENIES ANY PAIN OR DISCOMFORT. GENERALIZED WEAKNESS NOTED. DRESSING INTACT TO COCCYX. SCD'S ON BLE WITH EDEMA 1+ NOTED TO BLE. WITH HEELS FLOATED ON PILLOW. HRRR WITH ABDOMEN SOFT WITH BOWEL SOUNDS NOTED. O2 2L N/C. FALL PRECAUTIONS IN PLACE. IV TO RT. WRIST WITH NO S/S OF INFECTION/INFILTRATON. ENCOURAGED TO USE CALL LIGHT FOR ASSSIT.
[2019-10-08 09:43] VITALS: BP 128/59
[2019-10-08 12:53] VITALS: BP 121/70
--- NOTE | 2019-10-08 13:39 | NUR ---
Medical record reviewed. ARU will continue to monitor for medical stability to participate in ARU treatment.
[2019-10-08 17:53] VITALS: BP 109/62
[2019-10-08 20:00] VITALS: BP 98/48
[2019-10-09 04:00] VITALS: BP 108/52
--- NOTE | 2019-10-09 04:03 | NUR ---
I have reviewed this patient and I concur with the Shift Assessment completed by the Licensed Practical Nurse today this shift.
[2019-10-09 05:43] LABS: BASOPHILS 0.5 % (0-2); EOSINOPHILS 1.7 % (0-7); HEMATOCRIT 25.2 % (36.0-48.0); HEMOGLOBIN 8.4 g/dL (12-16); LYMPHOCYTES 37.3 % (15-50); MCH 28.5 pg (26.0-34.0); MCHC 33.3 g/dL (31.0-37.0); MCV 85.4 fL (80.0-100.0); MEAN PLATELET VOLUME 8.8 fL (7.4-10.4); MONOCYTES 10.2 % (2-11); NEUTROPHILS 49.3 % (40-80); PLATELET COUNT 258 10x3/uL (130-400); RBC 2.95 10x6/uL (4.00-5.40); RDW 14.7 % (11.5-14.5); WBC 8.2 10x3/uL (4.8-10.8)
[2019-10-09 07:19] LABS: CALC OSMOLALITY 269 mosm/kg (275-300); CALCIUM 7.8 mg/dL (8.5-10.1); CHLORIDE - SERUM 103 mmol/L (98-107); CREATININE - SERUM 0.7 mg/dL (0.6-1.3); GLUCOSE 103 mg/dL (74-106); POTASSIUM - SERUM 4.2 mmol/L (3.5-5.1); SODIUM 134 mmol/L (136-145); eGFR NON AFRICAN AMERICAN 84 mL/min (90-120)
[2019-10-09 07:20] LABS: UREA NITROGEN 19 mg/dL (7-18)
--- NOTE | 2019-10-09 07:40 | NUR ---
ALERT AND ORIENTED. LUNGS CLEAR BILATERALLY. HEART SOUNDS S1 AND S2 HEARD IN ALL JONES. BOWEL SOUNDS ACTIVE X 4. SKIN INTACT WITHOUT REDNESS. IV TO RIGHT WRIST PATENT WITHOUT REDNESS. BED LOW. CALL OSWALD AND PERSONAL ITEMS IN REACH. WILL CONITNUE TO MONITOR.
[2019-10-09 09:14] VITALS: BP 118/64
--- NOTE | 2019-10-09 11:53 | NUR ---
Discussed patient with the CM Maura Deshpande. Will accept today id the physician agrees. Idalia Menjivar RN Clinical Liaison, Rehab
--- NOTE | 2019-10-09 12:04 | NUR ---
SITTING IN CHAIR AT BEDSIDE. SON IN ROOM. DENIES NEEDS. WILL CONTINUE TO MONITOR.
[2019-10-09] MEDS ORDERED: MOBIC7.5 MG PO (12:23)
[2019-10-09] MEDS ORDERED: HYDROCODON-ACE1 EA10 PO (12:23)
--- NOTE | 2019-10-09 12:39 | MORECARE ---
CASE MANAGEMENT DISCHARGE SUMMARY PATIENT: ERSAMO CUNNINGHAM UNIT: [id number] ADM DATE: 09/29/19 AGE: 84 : 35 SEX: F ROOM/BED: D.2233 AUTHOR: GRIFFIN HOBSON PHYSICIAN: REFERRING PHYSICIAN: BARRY VORA MD DATE OF SERVICE: 10/09/19 Discharge Plan Patient Name: ERASMO CUNNINGHAM Facility: [facility]:[place] : 1935 Planned Disposition: Inpatient Rehab Anticipated Discharge Date: Discharge Date: Expected LOS: Initial Reviewer: [email or web address] Initial Review Date: 10/03/2019 Generated: 10/09/19 1:38 pm Comments DCP- Discharge Planning Updated by [email or web address]: Maura Deshpande on 10/09/19 11:[address] Bindu from rehab states they will accept patient today. Benny notified and dc orders written. Patient and her son notified and they are both in agreement to discharge to inpatient rehab today. DCP- Discharge Planning Updated by [email or web address]: Maura Deshpande on 10/03/19 8:[address] Patient Name: ERASMO CUNNINGHAM Admission Status: ER Accout number: [id number] Admission Date: 09-29-2019 : 1935 Admission Diagnosis: Attending: BARRY VORA Current LOS: 4 Anticipated DC Date: Planned Disposition: Inpatient Rehab Primary Insurance: MEDICARE A & B Discharge Planning Comments: CM met with patient to complete initial dc planning assessment. CM educated patient on the CM role and verbal consent given by patient to complete assessment. Patient lives at [facility] alone. States her son, Wild, is coming from [place] today. States her son, Chris, lives in [place] and he is the main caretaker resort for her. States she believes her son has purchased a rollator walker. At discharge patient plans to return and feels this is a safe discharge. CM discussed availability of home health, rehab services, and medical equipment. Patient states she would like a referral to inpatient rehab at [facility]. CM will continue to follow and will assist as needed with dc plans/needs. Emergency Medicine Nurse Practitioner: Maura Deshpande DCPIA - Discharge Planning Initial Assessment Updated by [email or web address]: Maura Deshpande on 10/03/19 10:12 am * Is the patient Alert and Oriented? Yes * How many steps to enter\exit or inside your home? 0/0 * PCP Dr. Vora * Pharmacy [facility] * Preadmission Environment Assisted Living * Facility Name [facility] * ADLs Partial Dependent * Partial ADLs (Assistance needed) Ambulation * Equipment Walker * List name and contact numbers for known caregivers / representatives who currently or will assist patient after discharge: Chris Liang [facility] - [phone] * Verbal permission to speak to the caregivers and representatives has been obtained from the patient. Yes * Community resources currently utilized Assisted Living Home Health * Please name any agencies selected above. [facility] * Additional services required to return to the preadmission environment? Yes * Can the patient safely return to the preadmission environment? Yes * Has this patient been hospitalized within the prior 30 days at any hospital? Yes Coverage Notice Reviewer: [id number] - Maura Deshpande Notice Issued Date-Time: 10/09/2019 12:37 Notice Type: IM Discharge Notice Notice Delivered To: Patient Relationship to Patient: Self Ingot Weigher Name: Delivery Method: - Babs Days: Prior Verbal Notification: Recipient Understood Notice: Recipient Signature: Med Rec Note Co-signed by Attending: Coverage Notice Comment: Last DP export: 10/03/19 8:24 am Patient Name: ERASMO CUNNINGHAM Page 82372 at 1239 All edits/amendments must be made on the electronic document DICTATION DATE: 10/09/19 1238 DIRECTOR OF ACCOUNTS PAYABLE: REJI 10/09/19 1238 RPT#: [id number] DC DATE: STATUS: ADM IN [facility] [address] [place] [address] END OF REPORT
[2019-10-09 12:52] VITALS: BP 110/66
--- NOTE | 2019-10-11 06:50 | MORECARE ---
CASE MANAGEMENT DISCHARGE SUMMARY PATIENT: ERASMO CUNNINGHAM UNIT: [id number] ADM DATE: 09/29/19 AGE: 84 : 35 SEX: F ROOM/BED: D.2233 AUTHOR: JAZLYNDOC PHYSICIAN: REFERRING PHYSICIAN: BARRY VORA MD DATE OF SERVICE: 10/11/19 Discharge Plan Patient Name: ERASMO CUNNINGHAM Facility: [facility]:[place] : 1935 Planned Disposition: Inpatient Rehab Anticipated Discharge Date: Discharge Date: 10/09/2019 Expected LOS: 0 Initial Reviewer: [email or web address] Initial Review Date: 10/03/2019 Generated: 10/11/19 7:50 am Comments DCP- Discharge Planning Updated by [email or web address]: Maura Deshpande on 10/09/19 11:[address] Bindu from rehab states they will accept patient today. Benny notified and dc orders written. Patient and her son notified and they are both in agreement to discharge to inpatient rehab today. DCP- Discharge Planning Updated by [email or web address]: Maura Deshpande on 10/03/19 8:[address] Patient Name: ERASMO CUNNINGHAM Admission Status: ER Accout number: [id number] Admission Date: 09-29-2019 : 1935 Admission Diagnosis: Attending: BARRY VORA Current LOS: 4 Anticipated DC Date: Planned Disposition: Inpatient Rehab Primary Insurance: MEDICARE A & B Discharge Planning Comments: CM met with patient to complete initial dc planning assessment. CM educated patient on the CM role and verbal consent given by patient to complete assessment. Patient lives at [facility] alone. States her son, Wild, is coming from [place] today. States her son, Chris, lives in [place] and he is the main caregiver services home for her. States she believes her son has purchased a rollator walker. At discharge patient plans to return and feels this is a safe discharge. CM discussed availability of home health, rehab services, and medical equipment. Patient states she would like a referral to inpatient rehab at [facility]. CM will continue to follow and will assist as needed with dc plans/needs. Battalion Chief: Maura Deshpande DCPIA - Discharge Planning Initial Assessment Updated by [email or web address]: Maura Deshpande on 10/03/19 10:12 am * Is the patient Alert and Oriented? Yes * How many steps to enter\exit or inside your home? 0/0 * PCP Dr. Vora * Pharmacy [facility] * Preadmission Environment Assisted Living * Facility Name [facility] * ADLs Partial Dependent * Partial ADLs (Assistance needed) Ambulation * Equipment Walker * List name and contact numbers for known caregivers / representatives who currently or will assist patient after discharge: Chris Liang [facility] - [phone] * Verbal permission to speak to the caregivers and representatives has been obtained from the patient. Yes * Community resources currently utilized Assisted Living Home Health * Please name any agencies selected above. [facility] * Additional services required to return to the preadmission environment? Yes * Can the patient safely return to the preadmission environment? Yes * Has this patient been hospitalized within the prior 30 days at any hospital? Yes Coverage Notice Reviewer: [id number] - Maura Deshpande Notice Issued Date-Time: 10/09/2019 12:37 Notice Type: IM Discharge Notice Notice Delivered To: Patient Relationship to Patient: Self International Marketing Intern Name: Delivery Method: HAND - Hand Delivered Babs Days: Prior Verbal Notification: Recipient Understood Notice: Yes Recipient Signature: Yes Med Rec Note Co-signed by Attending: Coverage Notice Comment: IMM explained, signed, given, copy placed in MR Last DP export: 10/09/19 11:39 am Patient Name: ERASMO CUNNINGHAM Page [id number] at 0650 All edits/amendments must be made on the electronic document DICTATION DATE: 10/11/19 0650 WET PAN MIXER: REJI 10/11/19 0650 RPT#: [id number] DC DATE:10/09/19 STATUS: DIS IN [facility] [address] [place] [address] END OF REPORT
== END 2019-10-09 16:02 | DRG 91 ==
LOC: D.ER 10:05 → D.MS 12:06
PROVIDERS: Emergency Medicine; ADMIT Legal Medicine; ATTEND Legal Medicine
DX: G72.89 Other specified myopathies (principal); I50.23 Acute on chronic systolic (congestive) heart failure; N39.0 Urinary tract infection, site not specified; N17.9 Acute kidney failure, unspecified; E87.1 Hypo-osmolality and hyponatremia; R52 Pain, unspecified; D64.9 Anemia, unspecified; K59.00 Constipation, unspecified; I25.10 Atherosclerotic heart disease of native coronary artery without angina pectoris; Z95.0 Presence of cardiac pacemaker; I11.0 Hypertensive heart disease with heart failure

== ENCOUNTER 2019-10-09 15:34 | Inpatient (IN) | payer MEDICARE, OTHER ==
[~2019-10-09] VITALS: Ht 162.6 cm; Wt 49.9 kg
--- NOTE | ~2019-10-09 | RHP ---
PATIENT: ERASMO CUNNINGHAM MEDICAL RECORD: [id number] ACCOUNT: [id number] 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 She has recently had kyphoplasty and urinary tract infection. She was recently in hospital for urinary tract infection and found to have compression fractures at T10, T11 and L1, started on Levaquin and discharged for kyphoplasty as an outpatient basis. She returned to the ED on 09/29/2019 complaining of ongoing lower thoracic pain, 8/10, and unable to tolerate at home. She also complained of left calf and left extremity pain. Her PCP advised her to increase her Bumex and she was taking 1 mg daily. She is also on Levaquin for recently diagnosed UTI. On exam, she had moderate distress with midline spine tenderness, muscle spasms, muscle tenderness. She had no skin infection noted. She did have some pitting edema. Thoracic x-rays showed compression deformities at T10, T11 and L1 with interval vertebral augmentation at these sites. There also was some findings suggestive of some extubation to the anterior vertebral body of T10 into the inferior endplate of T11. Ultrasound was negative for DVT. Lab work actually looked pretty good. She was admitted for intractable pain. Previously, she lived at [facility] and was independent with ADLs and mobility. Currently, she is set up for mod to max assist for ADLs and mobility. She has had prolonged immobility, progressive generalized weakness, especially in her lower extremities affecting her tolerance to PT. She is very fatigued, has limited flexion, extension of her lower extremities. Proximal muscle strength is decreased. She is mod to max assist for ADLs and mod to max assist for sit to stand and bed to chair, but she is highly motivated to regain her strength and hopefully return back to home. COMORBIDITIES: Included acute kidney injury, anemia, coronary artery disease, carotid stenosis, constipation, degenerative disk disease, debility, decrease in physical functioning, decreased ability to ambulate, essential hypertension, falls, fatigue, hearing loss, hyperlipidemia, hypothyroidism, incontinence, osteopenia, pacemaker pain, UTI, and weakness. PAST MEDICAL HISTORY: Significant for cataracts, thyroid problems, hypertension, coronary artery disease, pneumonia, chronic back pain and UTI. PAST SURGICAL HISTORY: Includes tonsillectomy, adenoidectomy, pacemaker placement. She has had a broken jaw in the past. She has had blood clots from previous fall. ALLERGIES: SULFA, CLINDAMYCIN, AMOXICILLIN. CURRENT MEDICATIONS: Including Calmoseptine to apply b.i.d., Lotensin 10 mg daily, she is on amlodipine 5 mg daily, meloxicam 15 mg daily, Colace 100 mg daily, Cordarone 200 mg daily, Synthroid 75 mcg daily, Pravachol 40 mg at bedtime, potassium 20 mEq b.i.d., Ditropan 5 mg b.i.d., Bumex 1 mg b.i.d., MiraLax 17 g in 8 ounces of water daily, Wright 10/325 one tab every 8 hours as needed. HABITS: No alcohol or tobacco use. FAMILY HISTORY: Noncontributory. HISTORY AND PHYSICAL [id number] ERASMO CUNNINGAHM SOCIAL HISTORY: The patient hopes to return back home and get back to her prior level of functioning. REVIEW OF SYSTEMS: GENERAL: Does complain of weakness and fatigue. HEENT: Denies cold, cough, or congestion. CARDIOVASCULAR: Denies any chest pain. PHYSICAL EXAMINATION: VITAL SIGNS: Stable, afebrile. GENERAL: An elderly female, in no acute distress upon exam. HEENT: Normocephalic and atraumatic. Mucosa moist. NECK: Supple. No lymphadenopathy. LUNGS: Clear in upper [place]. HEART: Regular rate and rhythm. She does have a holosystolic murmur. ABDOMEN: Soft, benign and nondistended. Positive bowel sounds times 4. EXTREMITIES: No clubbing, cyanosis. Does have some peripheral edema. NEUROLOGIC: She has got 3/5 muscular strength in her lower extremities. LABORATORY DATA: White count is 8.6, H&H of 8.6 and 26.2 and platelet count is 313. Her sodium is 134, potassium 4.0, BUN and creatinine of 19 and 0.9, and blood sugar is noted to be 92. ASSESSMENT: This is an 84-year-old female patient admitted to rehab with a working diagnosis of disuse myopathy, secondary to prolonged immobility, kyphoplasty and urinary tract infection. The patient has potential to make improvement. We instituted the following multidisciplinary therapies including, but not limited to physical, occupational, respiratory, speech, nutritional services, prosthetics and orthotics. Given her complex medical condition and risks for more complications, rehabilitation services cannot be provided at a low level of care such as skilled nurse facility. PLAN: [facility] to include the following disciplines: A. Physical therapy to improve gait, all transfer skills and bed mobility to a modified independent level. B. Occupational therapy to improve activities of daily living. C. Case management to assist with discharge planning and placement options. D. Nutrition to assist with nutritional needs. E. Rehabilitation nursing to assist in monitoring the patient's underlying medical conditions and to assist with any type of bowel or bladder management. 2. The patient's current medication and medical care will be continued. 3. The patient will be placed on standard fall precautions. 4. The patient's stay is approximately 7-10 days. 5. We will discuss the patient during care team staff meeting this week. We will continue on home medications and pain medications as appropriate and I will see again in the a.m. I am going to also discuss her case with care team and case management tomorrow at lunch. TRANSINT:[id number] Voice Confirmation ID: [id number] DOCUMENT ID: [id number] KIERSTEN notes whether there has been none or any medical/functional HISTORY AND PHYSICAL [id number] ERASMO CUNNINGHAM change since admission: - No change since pre-admission screen. KIERSTEN attests patient continues to be appropriate for IRF: - Continues to be appropriate. LEONARD BASS MD CC: [id number] DICTATION DATE: 10/10/19 1053 STATISTICS INTERN: 10/10/19 1140 ADM IN [facility] [address] [place] [address]
[~2019-10-09 15:34] MED LIST changes: +BUMETANIDE TAB 1MG; +COLACE100 MG PO; +HYDROCODON-ACE1 EA10 PO; +K-DUR20 MEQ PO; +K-TAB10 MEQ PO; +LEVOTHYROXINE75 MCG; +MOBIC7.5 MG PO; +PACERONE100 MG PO; +ULTRAM50 MG PO
[2019-10-09 16:52] VITALS: BP 109/62; BMI 18.9
--- NOTE | 2019-10-09 17:59 | NUR ---
ADMIT TO REHAB FROM ACUTE FLOOR. IS ALERT AND ORIENTED X4. C/O PAIN TO LEFT HIP. HAD RECENT KYPHOPLASTY BUT STILL HAS PAIN TO LEFT HIP. X2 SONS IN ROOM WITH PT. SHE IS MAX ASST.
[2019-10-09 19:00] VITALS: BP 140/69
--- NOTE | 2019-10-09 19:06 | NUR ---
GREETED PATIENT AND INTRODUCED MYSELF HER NURSE. PATIENT IS LAYING IN BED RESTING AT THIS TIME. GAVE PATIENT ADMISSION PAPERWORK TO SIGN. PT. DENIES ANY NEEDS AT THIS TIME. CALL LIGHT IN REACH.
--- NOTE | 2019-10-10 00:45 | NUR ---
PT CLEANED OF INCONTINENT URINE. COMPLETE LINEN CHANGE. PT. REPOSITIONED FOR COMFORT. CALL LIGHT IN REACH.
--- NOTE | 2019-10-10 03:50 | NUR ---
PT RESTING QUIETLY WITH EYES CLOSED. RESPIRATIONS EVEN. NO S/S OF DISTRESS. CALL LIGHT IN REACH.
[2019-10-10 05:52] LABS: BASOPHILS 0.3 % (0-2); EOSINOPHILS 1.5 % (0-7); HEMATOCRIT 26.2 % (36.0-48.0); HEMOGLOBIN 8.6 g/dL (12-16); IMMATURE GRANULOCYTES 0.9 % (0-5); LYMPHOCYTES 39.3 % (15-50); MCHC 32.8 g/dL (31.0-37.0); MCV 85.3 fL (80.0-100.0); MEAN PLATELET VOLUME 8.9 fL (7.4-10.4); MONOCYTES 9.6 % (2-11); NEUTROPHILS 48.4 % (40-80); RBC 3.07 10x6/uL (4.00-5.40); RDW 14.9 % (11.5-14.5); WBC 8.6 10x3/uL (4.8-10.8)
[2019-10-10 06:14] LABS: ANION GAP 12.3 mmol/L (8-16); CALCIUM 7.7 mg/dL (8.5-10.1); CARBON DIOXIDE 27.7 mmol/L (21.0-32.0)
[2019-10-10 06:17] LABS: PLATELET COUNT 313 10x3/uL (130-400)
[2019-10-10 06:18] LABS: CREATININE - SERUM 0.9 mg/dL (0.6-1.3)
[2019-10-10 08:03] VITALS: BP 136/56
--- NOTE | 2019-10-10 08:46 | NUR ---
PT AM MEDS ADMINISTRED. PT DENIES NEEDS. WCTM.
--- NOTE | 2019-10-10 11:13 | NUR ---
Pt was admitted to Rehab with several wounds. 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 Left buttock/coccyx has a stage 2 measuring 2cm x 1cm and below it is another stage 2 pressure injury measuring 3cm x 2cm. The right buttock has a stage 3 pressure injury measuring 1cm x 1cm x 0.4cm. Wounds are being protected with mepilex sacral dressing. Wound care will also recommend an air overlay mattress. Wound care will continue monitoring.
[2019-10-10 14:31] VITALS: Ht 162.6 cm; Wt 49.9 kg
--- NOTE | 2019-10-10 16:25 | NUR ---
PATIENT ADMITTED TO REHAB FROM ACUTE FLOOR. HER PCP IS DR. VORA AND SHE RESIDES AT [facility]. SHE HAS SUKH[facility] AT HOME FOR HOME HEALTH. DISCHARGE PLANS ARE FOR PATIENT TO RETURN TO HER HOME. WILL CONTINUE TO FOLLOW WITH PATIENT.
--- NOTE | 2019-10-10 18:05 | NUR ---
PT EATING DINNER, DENIES NEEDS. WCTM.
--- NOTE | 2019-10-10 18:48 | NUR ---
BEDSIDE REPORT COMPLETE. PT SITTING UP IN BED WATCHING TV. ALERT AND ORIENTED X4. DENIES ANY NEEDS OR PAIN. NO SIGNS OF ACUTE DISTRESS NOTED. CL IN REACH. FALL PRECAUTIONS IN PLACE. WILL CONTINUE TO MONITOR
[2019-10-10 20:38] VITALS: BP 136/58
--- NOTE | 2019-10-10 23:15 | NUR ---
PT LYING IN BED ON RIGHT SIDE EYES CLOSED RESTING COMFORTABLY. AIR MATTRESS INFLATED. RR EVEN AND UNLABORED. CL IN REACH
--- NOTE | 2019-10-11 01:18 | NUR ---
PT LYING IN BED ON LEFT SIDE EYES CLOSED RESTING. RR EVEN AND UNLABORED. CL IN REACH
--- NOTE | 2019-10-11 04:24 | NUR ---
PT LYING IN BED ON LEFT SIDE EYES CLOSED RESTING. CL IN REACH
[2019-10-11 07:52] LABS: BASOPHILS 0.5 % (0-2); EOSINOPHILS 3.4 % (0-7); HEMATOCRIT 25.4 % (36.0-48.0); HEMOGLOBIN 8.4 g/dL (12-16); IMMATURE GRANULOCYTES 1.1 % (0-5); LYMPHOCYTES 36.5 % (15-50); MCH 28.3 pg (26.0-34.0); MCHC 33.1 g/dL (31.0-37.0); MCV 85.5 fL (80.0-100.0); MEAN PLATELET VOLUME 8.7 fL (7.4-10.4); MONOCYTES 11.7 % (2-11); NEUTROPHILS 46.8 % (40-80); PLATELET COUNT 319 10x3/uL (130-400); RBC 2.97 10x6/uL (4.00-5.40); WBC 7.3 10x3/uL (4.8-10.8)
[2019-10-11 08:08] LABS: ANION GAP 10.2 mmol/L (8-16); CALCIUM 7.9 mg/dL (8.5-10.1); CARBON DIOXIDE 28.7 mmol/L (21.0-32.0); CREATININE - SERUM 1.1 mg/dL (0.6-1.3); POTASSIUM - SERUM 3.9 mmol/L (3.5-5.1)
--- NOTE | 2019-10-11 10:29 | NUR ---
PARTICIPATED IN THERAPY. FAMILY IN ROOM. NO C/O PAIN.
--- NOTE | 2019-10-11 12:40 | NUR ---
SITTING IN CHAIR EATING. SON IN ROOM. NO DISTRESS NOTED.
--- NOTE | 2019-10-11 14:20 | NUR ---
CARE TEAM MEETING: PATIENT SON ATTENDED MEETING, HIS QUESTIONS AND CONCERNS WERE ADDRESSED. DISCHARGE PLANS ARE FOR PATIENT TO RETURN HOME AND HER FAMILY WILL BE HER CARE GIVERS. PATIENT WILL BE RA AT NEXT MEETING. WILL CONTINUE TO FOLLOW WITH PATIENT.
--- NOTE | 2019-10-11 18:25 | NUR ---
NO CHANGE IN ASSESSMENT. NO DISTRESS NOTED. RESTING. CL IN REACH.
--- NOTE | 2019-10-11 18:43 | NUR ---
BEDSIDE REPORT COMPLETE. PT LYING IN BED ON RIGHT SIDE EYES CLOSED RESTING. NO SIGNS OF ACUTE DISTRESS NOTED. EASILY AROUSED WITH VERBAL STIMULI. BUTTOCKS DRESSING C/D/I, EXCORIATION NOTED ON BUTTOCKS AND CALVIN AREA, CALMOSEPTINE IS BEING USED TO TREAT. AIR MATTRESS OVERLAY INFLATED AND WORKING PROPERLY. CL IN REACH. FALL PRECAUTIONS IN PLACE. WILL CONTINUE TO MONITOR
[2019-10-11 20:00] VITALS: BP 103/55
--- NOTE | 2019-10-12 00:50 | NUR ---
ASSISTED PT TO RESTROOM, CHANGED SOILED BRIEF AND LINENS. REMOVED COCCYX DRESSING NO DRAINAGE NOTED. CLEANSED AREA AND COVERED WITH MEPILEX DRESSING. PT IN BED ON RIGHT SIDE C/O LEFT SIDE PAIN 10/10 SHARP THROBBING PAIN. REQUEST PAIN MEDICATION. WILL ADMINISTER. CL IN REACH
--- NOTE | 2019-10-12 04:33 | NUR ---
PT LYING IN BED ON RIGHT SIDE EYES CLOSED RESTING. RR EVEN AND UNLABORED. CL IN REACH
[2019-10-12 07:37] VITALS: BP 110/88
--- NOTE | 2019-10-12 07:47 | NUR ---
PATIENT IS ALERT/ORIENT. FIRST STEP MATTRESS ON BED. CALL LIGHT WITHIN REACH. VOICES NO NEEDS AT THIS TIME. WILL CONTINUE WITH PLAN OF CARE
--- NOTE | 2019-10-12 11:42 | NUR ---
I have reviewed this patient and I concur with the Shift Assessment completed by the Licensed Practical Nurse today this shift.
--- NOTE | 2019-10-12 14:42 | NUR ---
Nutrition Follow-up: Diet: Regular + Ensure TID + Jayce BID PO intake: ~70% average x last 3 meals; she reports that her appetite is "not any better." She states that she is trying to drink oral nutrition supplements. She gave food request for dinner meal. Last BM: 10/11/19 x 2. WT: 110# (10/10/19) Meds noted: bumex. Labs noted: Na 135(L), BUN 28(H), GFR 50(L). Skin: stage II PUs to coccyx Recommend continue current diet and oral nutrition supplements. Will continue to honor food preferences. RD following.
[2019-10-12 19:34] VITALS: BP 105/57
--- NOTE | 2019-10-12 20:10 | NUR ---
AWAKE AND ALERT. RESTING IN BED WITH RESPIRATIONS UNLABORED. NO ACUTE DISTRESS NOTED. CALL LIGHT IN REACH.
--- NOTE | 2019-10-13 01:01 | NUR ---
ASSIST TO BATHROOM AND BACK TO BED. HAD SOME STRESS INCONTINENCE. BRIEF AND PAJAMAS AND BED LINENS CHANGED. NO ACUTE DISTRESS NOTED. CALL LIGHT IN REACH.
--- NOTE | 2019-10-13 02:58 | NUR ---
ASSISTED TO BATHROOM AND BACK TO BED. WATCHING TV. STATED "I CAN TAKE MYSELF TO THE BATHROOM IF YOU LEAVE MY WHEELCHAIR CLOSE." I TOLD HER I WOULD PREFER TO BE IN THE ROOM AND ASSIST HER JUST TO BE SAFE. SHE STATED "IF I HAD A WALKER THAT WOULD HELP" I BROUGHT A WALKER TO HER ROOM AND TOLD HER I STILL WANTED TO BE IN THE ROOM AND ASSIST HER. SHE VOICED UNDERSTANDING.
--- NOTE | 2019-10-13 05:20 | NUR ---
AWAKE WATCHING TV. RESPIRATIONS UNLABORED. NO ACUTE CHANGES IN CONDITION THIS SHIFT. CALL LIGHT IN REACH.
[2019-10-13 06:21] LABS: BASOPHILS 0.6 % (0-2); EOSINOPHILS 2.3 % (0-7); HEMATOCRIT 25.5 % (36.0-48.0); HEMOGLOBIN 8.6 g/dL (12-16); IMMATURE GRANULOCYTES 1.1 % (0-5); LYMPHOCYTES 42.4 % (15-50); MCH 29.4 pg (26.0-34.0); MCHC 33.7 g/dL (31.0-37.0); MEAN PLATELET VOLUME 8.8 fL (7.4-10.4); MONOCYTES 12.3 % (2-11); NEUTROPHILS 41.3 % (40-80); PLATELET COUNT 350 10x3/uL (130-400); RBC 2.93 10x6/uL (4.00-5.40); RDW 15.8 % (11.5-14.5); WBC 6.5 10x3/uL (4.8-10.8)
[2019-10-13 06:42] LABS: ANION GAP 10.1 mmol/L (8-16); CALCIUM 7.7 mg/dL (8.5-10.1); CARBON DIOXIDE 30.6 mmol/L (21.0-32.0); POTASSIUM - SERUM 3.7 mmol/L (3.5-5.1)
--- NOTE | 2019-10-13 08:00 | NUR ---
PT RESTING IN BED WITH EYES OPEN CALL LIGHT IN REACH NO PROBLEMS WILL MONITER
[2019-10-13 08:26] VITALS: BP 130/65
[2019-10-13 16:00] VITALS: BP 100/45
--- NOTE | 2019-10-13 16:00 | NUR ---
PT STARTED 1 UNIT PRBC GOING THRU 20GUAGE STARTED IN RIGHT FOREARM FIRST ATTEMPT NO PROBLEMS WILL MONITER
[2019-10-13 16:15] VITALS: BP 121/66
--- NOTE | 2019-10-13 18:45 | NUR ---
BEDSIDE REPORT COMPLETE. PT LYING IN BED ALERT AND ORIENTED X4. C/O LEFT SIDE AND HIP PAIN 6/10 ACHING. REQUESTS PAIN MEDICATIONS. WILL ADMINISTER PER ORDER. PRBC INFUSING 125ML/HR RIGHT FOREARM. NO SWELLING OR REDNESS AT SITE. DRESSING C/D/I. NO SIGNS OF ACUTE DISTRESS NOTED. CL IN REACH. FALL PRECAUTIONS IN PLACE. WILL CONTINUE TO MONITOR
[2019-10-13 19:00] VITALS: BP 109/47
[2019-10-13 19:15] VITALS: BP 114/50
--- NOTE | 2019-10-14 00:30 | NUR ---
FOUND PT IN BATHROOM FLOOR SITTING UPRIGHT. PT C/O RIGHT HIP PAIN. ASSISTED PT OFF FLOOR WITH ASSISTANCE FROM OFFICE CLEANER. NON SKID SOCKS WERE ON. PT IN BED AND RADIOLOGY CALLED FOR STAT XRAY.
[2019-10-14 00:33] VITALS: BP 110/43
--- NOTE | 2019-10-14 00:38 | NUR ---
STAKING TECHNICIAN CASIE NOTIFIED OF FALL
--- NOTE | 2019-10-14 00:39 | NUR ---
LEFT VM FOR DR. BASS REGARDING FALL
--- NOTE | 2019-10-14 00:40 | NUR ---
PT SON TORI NOTIFIED OF FALL.
--- NOTE | 2019-10-14 01:40 | NUR ---
DR. BASS NOTIFIED OF RIGHT HIP FX PER RADIOLOGY REPORT. DR. BASS WANTS PT PLACED IN BUCKS TRACTION FOR THE NIGHT AND WILL TRANSFER IN THE AM TO ACUTE CARE. CHANGED NORCO ORDER FROM Q8P TO Q6P.
--- NOTE | 2019-10-14 02:45 | NUR ---
PT LYING IN BED SUPINE. RIGHT HIP/LEG STABLIZED. SPOKE WITH ORTHO NURSES TO GET BUCKS TRACTION SET UP AND THEY INFORMED THAT WE NO LONGER DO BUCKS TRACTION PER ORTHO DOCTORS. RIGHT HIP IS STABLIZED PT STATES THAT PAIN HAS EASED UP 5/10 THROBBING BUT TOLERABLE. WILL CONTINUE TO MONITOR
--- NOTE | 2019-10-14 04:56 | NUR ---
PT LYING IN BED SUPINE EYES CLOSED RESTING. RR EVEN AND UNLABORED. CL IN REACH
[2019-10-14 08:00] VITALS: BP 128/70
--- NOTE | 2019-10-14 08:30 | NUR ---
DR HARRISON HERE TO SEE PT WILL BE WRITING ORDERS FOR PT TO BE TRANSFERED TO ACUTE CARE FOR SURGERY PT CALL LIGHT IN REACH SON AT BEDSIDE WILL MONITER
[2019-10-14] MEDS ORDERED: FEXOFENADINE HC60 MG PO (10:30)
[2019-10-14] MEDS ORDERED: HYDROCODON-ACE1 EA10 PO (10:31)
[2019-10-14] MEDS ORDERED: BUMETANIDE0.5 MG PO (10:31)
[2019-10-14] MEDS ORDERED: MIRALAX17 GM PO (10:32)
[2019-10-14] MEDS ORDERED: CALMOSEPTINE OI71 GM TOPICAL (10:33)
--- NOTE | 2019-10-14 12:00 | NUR ---
PT TRANSFERED TO [facility] REPORT CALLED TO MADAN JOHNSON. PT TOLERATED WELL TRANSFERED BY BED
--- NOTE | 2019-10-16 10:08 | NUR ---
PATIENT DISCHARGED FROM REHAB AND ADMITTED TO ACUTE FLOOR DUE TO CHANGE IN MEDICAL CONDITION.
== END 2019-10-14 14:07 | disposition short-term general hospital (02) | DRG 92 ==
LOC: D.REHAB 15:34
PROVIDERS: Emergency Medicine; ADMIT Emergency Medicine; ATTEND Emergency Medicine
DX: G72.89 Other specified myopathies (principal); N17.9 Acute kidney failure, unspecified; S72.141A Displaced intertrochanteric fracture of right femur, initial encounter for closed fracture; N39.0 Urinary tract infection, site not specified; D64.9 Anemia, unspecified; I25.10 Atherosclerotic heart disease of native coronary artery without angina pectoris; I65.29 Occlusion and stenosis of unspecified carotid artery; K59.00 Constipation, unspecified; R53.81 Other malaise; I10 Essential (primary) hypertension; E78.5 Hyperlipidemia, unspecified; E03.9 Hypothyroidism, unspecified; R53.83 Other fatigue; R32 Unspecified urinary incontinence; M85.80 Other specified disorders of bone density and structure, unspecified site; W19.XXXA Unspecified fall, initial encounter; Y92.231 Patient bathroom in hospital as the place of occurrence of the external cause

== ENCOUNTER 2019-10-14 10:27 | Inpatient (IN) | payer MEDICARE, OTHER ==
[2019-10-14] VITALS (14 sets, daily range): BP systolic 87–130; BP diastolic 42–78; BMI 18.9
[~2019-10-14] VITALS: Ht 162.6 cm; Wt 49.9 kg
[2019-10-14] MEDS ORDERED: FEXOFENADINE HC60 MG PO (10:30)
[2019-10-14] MEDS ORDERED: HYDROCODON-ACE1 EA10 PO (10:31)
[2019-10-14] MEDS ORDERED: BUMETANIDE0.5 MG PO (10:31)
[2019-10-14] MEDS ORDERED: MIRALAX17 GM PO (10:32)
[2019-10-14] MEDS ORDERED: CALMOSEPTINE OI71 GM TOPICAL (10:33)
[2019-10-14 14:30] LABS: HEMATOCRIT 27.7 % (36.0-48.0); HEMOGLOBIN 9.1 g/dL (12-16); MCH 28.9 pg (26.0-34.0); MCHC 32.9 g/dL (31.0-37.0); MCV 87.9 fL (80.0-100.0); MEAN PLATELET VOLUME 8.9 fL (7.4-10.4); PLATELET COUNT 315 10x3/uL (130-400); RBC 3.15 10x6/uL (4.00-5.40); RDW 16.2 % (11.5-14.5)
[2019-10-14 14:31] LABS: WBC 9.3 10x3/uL (4.8-10.8)
[2019-10-14 14:33] LABS: INR 1.01 (0.85-1.17); PROTIME 13.2 SECONDS (11.6-15.0)
[2019-10-14 14:38] LABS: ALBUMIN 2.1 g/dL (3.4-5.0); ANION GAP 9.6 mmol/L (8-16); BILIRUBIN - TOTAL 0.56 mg/dL (0.2-1.3); CALCIUM 8.3 mg/dL (8.5-10.1); CARBON DIOXIDE 31.6 mmol/L (21.0-32.0); CREATININE - SERUM 0.9 mg/dL (0.6-1.3); PROTEIN - SERUM 5.8 g/dL (6.4-8.2)
[2019-10-14 14:42] LABS: POTASSIUM - SERUM 5.2 mmol/L (3.5-5.1)
[2019-10-14 14:56] LABS: LYMPHOCYTES 39 % (15-50); MONOCYTES 3 % (2-11); NEUTROPHILS 58 % (40-80); PLATELET ESTIMATE NORMAL
--- NOTE | 2019-10-14 16:40 | NUR ---
PATIENT CAME TO THE OR WITH A PAIR OF GLASSES AND LOWER DENTURES GLASSES WERE PLACED IN THE CHART IN A BAG AND DENTURES ARE IN A GREEN CUP THAT WAS PLACED ON THE PATIENTS BED WHEN TRANSPORTED. BOTH ARRIVED WITH HER TO ROOM 1211
--- NOTE | 2019-10-14 19:10 | NUR ---
PATIENT RESTING IN BED WITH EYES CLOSED AND NO S/S OF DISTRESS. BED IN LOWEST POSITION AND CALL LIGHT WITHIN REACH. WILL CONTINUE MONITOR.
--- NOTE | 2019-10-14 20:42 | NUR ---
PATIENT VOIDED A SMALL AMOUNT POSTOP
[2019-10-15 00:10] VITALS: BP 108/52
--- NOTE | 2019-10-15 01:43 | NUR ---
PATIENT RESTING IN BED WITH EYES CLOSED AND NO S/S OF DISTRESS. WILL CONTINUE TO MONITOR.
[2019-10-15 04:25] VITALS: BP 101/47
--- NOTE | 2019-10-15 07:20 | NUR ---
RECIEVE PATIENT. RESTING IN BED WITH EYES CLOSED. NO SIGNS OF DISTRESS. CONTINUE PLAN OF CARE AND SAFETY PRECAUTIONS.
[2019-10-15 08:34] VITALS: BP 136/75
[2019-10-15 08:54] LABS: BASOPHILS 0.3 % (0-2); EOSINOPHILS 1.6 % (0-7); HEMATOCRIT 22.8 % (36.0-48.0); IMMATURE GRANULOCYTES 0.9 % (0-5); LYMPHOCYTES 47.7 % (15-50); MCH 28.6 pg (26.0-34.0); MCV 89.4 fL (80.0-100.0); MEAN PLATELET VOLUME 8.5 fL (7.4-10.4); MONOCYTES 11.5 % (2-11); PLATELET COUNT 289 10x3/uL (130-400); RBC 2.55 10x6/uL (4.00-5.40); RDW 16.6 % (11.5-14.5)
[2019-10-15 08:55] LABS: WBC 12.8 10x3/uL (4.8-10.8)
[2019-10-15 08:56] LABS: HEMOGLOBIN 7.3 g/dL (12-16)
[2019-10-15 08:59] LABS: ANION GAP 11.1 mmol/L (8-16); CALCIUM 7.6 mg/dL (8.5-10.1); CARBON DIOXIDE 27.4 mmol/L (21.0-32.0); CREATININE - SERUM 0.9 mg/dL (0.6-1.3); POTASSIUM - SERUM 4.5 mmol/L (3.5-5.1)
--- NOTE | 2019-10-15 09:12 | NUR ---
ALERT AND ORIENTED X4. SITTING UP IN BED. CALL SIMON MEADOWS TO INFORM CRITICAL HGB 7.3. NO NEW ORDERS AT THIS TIME.
--- NOTE | 2019-10-15 09:52 | NUR ---
PHYSICAL THERAPY ASSIST UP OOB TO CHAIR. SON AT BEDSIDE. LINENS CHANGE. DENIES ANY NEEDS AT THIS TIME. CONTINUE PLAN OF CARE AND SAFETY PRECAUTIONS.
--- NOTE | 2019-10-15 10:32 | OP ---
PATIENT NAME: ERASMO CALDERA MEDICAL RECORD: [id number] :[birth year] LOCATION:D.M3 D.1211 ADMISSION DATE:10/14/19 SURGEON: ANALI HARRISON DO DATE OF OPERATION: 10/14/2019 PROCEDURE PERFORMED: Right hip intramedullary nailing. PREOPERATIVE DIAGNOSIS: Comminuted displaced right hip intertrochanteric fracture. POSTOPERATIVE DIAGNOSIS: Comminuted displaced right hip intertrochanteric fracture. INDICATIONS: Ms. Caldera is an 84-year-old female, who recently fell onto her right hip last night. X-rays were taken showing fracture. I informed her of the risks of this including malunion, nonunion, need for further surgery, continued pain, inability to bear weight and blood clots, and even and she signed consent. I also informed her that we would be able to fix this with a nail and that she would likely be able to put weight on it right away. She is okay with that also and signed the consent. SURGEON: Anali Harrison DO DESCRIPTION OF PROCEDURE: The patient was taken to the operative suite, laid in supine position, given general anesthetic and intubated. She was given a gram of Ancef preoperatively. The patient was then put on the [place] table and positioned the reduction. A timeout was performed, everyone was in agreement with correct site, the patient and procedure. Reduction was then made under x-ray. We then prepped and draped the right hip in sterile fashion. Then, an incision was made just proximal to trochanter. The greater trochanter was fractured off and a starting point was made confirmed on AP and lateral and then opening reamer was used. We then put the guidewire down and measured the length to be 320 mm. Then began reaming from 9 to 12.5 and put an 11 nail down. Once it was in acceptable position and we got the lag screw in acceptable position, the 90 mm 10.5 lag screw was put in and then with distraction came off, we compressed at the fracture site then locked the nail proximally, then put an antirotational screw at 75-mm anti-rotation screw 5mm screw. We got x-rays in AP and lateral, confirmed to be in good position. I then got perfect circles on the x-rays distally and put in a locking screw distally in the dynamic hole, then took an oblique x-ray to ensure everything looked adequate, and once that was done, there were 3 incision sites, 1 proximally and then for the lag screw and the one at distal a locking screw. They were all irrigated with normal saline. The problem was proximal site. IT band was then closed with #1 Vicryl in [id number] fashion and then closed the skin with 2-0 Vicryl in interrupted fashion on each side and then put Prineo glue on each side. She was then dressed with Telfa and Tegaderm. She was awakened and taken to recovery in stable condition. Blood loss was approximately 200 mL. COMPLICATIONS: None. TRANSINT:[id number] Voice Confirmation ID: [id number] DOCUMENT ID: [id number] OPERATIVE REPORT [id number] ERASMO CALDERA MICHAEL D, DO at 1032 CC: [id number] DICTATION DATE: 10/14/19 1608 AIR POLLUTION AUDITOR: 10/14/19 2305 ADM IN [facility] [address] [place] [address]
--- NOTE | 2019-10-15 11:29 | NUR ---
PT REPORTING PAIN OF 8/10, REQUESTING PAIN MEDICATION. MEDICATED PER ORDERS, WILL MONITOR. ASSIGNED NURSE OFF OF FLOOR AT THIS TIME.
[2019-10-15 12:00] VITALS: BP 125/67
--- NOTE | 2019-10-15 15:30 | NUR ---
ALERT AND ORIENTED X4. SITTING UP IN BED. RT HIP DRESSING CHANGED ORDERED. INITIATE PRBC TRANSFUSION UNIT 1. BP-131/63, HR-92, O2-96% RA, T-99.4. REMAIN AT BEDSIDE TO MONITOR FOR REACTION.
[2019-10-15 15:38] VITALS: BP 131/63
--- NOTE | 2019-10-15 15:44 | NUR ---
ALERT AND ORIENTED X4. SITTING UP IN BED. NO SIGNS OF REACTION. BP-130/60, HR-86, T-99.2. CONTINUE PAIN MANAGEMENT. INCREASE TRANSFUSION RATE TO 125mL/HR. CONTINUE TO MONITOR. CONTINUE PLAN OF CARE AND SAFETY PRECAUTIONS.
--- NOTE | 2019-10-15 16:54 | MORECARE ---
CASE MANAGEMENT DISCHARGE SUMMARY PATIENT: ERASMO CUNNINGHAM UNIT: [id number] ADM DATE: 10/14/19 AGE: 84 : 35 SEX: F ROOM/BED: D.1211 AUTHOR: GRIFFIN HOBSON PHYSICIAN: REFERRING PHYSICIAN: SOHEILA SHAH MD DATE OF SERVICE: 10/15/19 Discharge Plan Patient Name: ERASMO CUNNINGHAM Facility: [facility]:[place] : 1935 Planned Disposition: Inpatient Rehab Anticipated Discharge Date: 10/17/19 Discharge Date: Expected LOS: 3 Initial Reviewer: [email or web address] Initial Review Date: 10/14/2019 Generated: 10/15/19 5:54 pm Patient Name: ERASMO CUNNINGHAM Page [id number] at 1654 All edits/amendments must be made on the electronic document DICTATION DATE: 10/15/191653 REGULATORY ADMINISTRATOR: REJI 10/15/191653 RPT#: [id number] DC DATE: STATUS: ADM IN [facility] [address] [place] [address] END OF REPORT
--- NOTE | 2019-10-15 17:01 | MORECARE ---
CASE MANAGEMENT DISCHARGE SUMMARY PATIENT: ERASMO CUNNINGHAM UNIT: [id number] ADM DATE: 10/14/19 AGE: 84 : 35 SEX: F ROOM/BED: D.1211 AUTHOR: JAZLYN,DOC PHYSICIAN: REFERRING PHYSICIAN: SOHEILA SHAH MD DATE OF SERVICE: 10/15/19 Discharge Plan Patient Name: ERASMO CUNNINGHAM Facility: [facility]:[place] : 1935 Planned Disposition: Inpatient Rehab Anticipated Discharge Date: 10/17/19 Discharge Date: Expected LOS: 3 Initial Reviewer: [email or web address] Initial Review Date: 10/14/2019 Generated: 10/15/19 6:00 pm Comments DCP- Discharge Planning Updated by [email or web address]: Payton Navas on 10/15/19 3:[address] DC PLAN: Return to Inpatient Rehab at [facility] ANTICIPATED DC NEEDS: Rehab CM met with patient and her son Chris Liang to complete initial dc planning assessment. CM educated patient on the CM role and verbal consent given by patient to complete assessment. CM verified patient's address, phone number, and emergency contact phone numbers. Prior to first hospitalization patient lives at [facility] in the [facility]. Patient was in inpatient rehab and fell and was admitted back to the hospital. She plans to return to Rehab at [facility] when medically stable. SHAHRAM form presented, explained, and signed by the patient's son for IN Rehab at [facility]. Signed form left with patient and signed form placed on chart. Admission IMM presented and signed by patient's son as well. At discharge patient plans to return [facility] IN Rehab and feels this is a safe discharge. Patient denied further known discharge needs at this time. CM will continue to follow and will assist as needed with dc plans/needs. Payton Navas RN, [facility] DCPIA - Discharge Planning Initial Assessment Updated by [email or web address]: Payton Navas on 10/15/19 4:55 pm * Is the patient Alert and Oriented? Yes * PCP Dr. Orellana * Pharmacy [facility] [address] * Preadmission Environment Assisted Living * Facility Name [facility] * ADLs Independent * Equipment Rolling Walker Wheelchair * List name and contact numbers for known caregivers / representatives who currently or will assist patient after discharge: Chris Liang - joan - [phone] * Verbal permission to speak to the caregivers and representatives has been obtained from the patient. Yes * Community resources currently utilized None * Additional services required to return to the preadmission environment? Yes * Can the patient safely return to the preadmission environment? Yes * Has this patient been hospitalized within the prior 30 days at any hospital? Yes Last DP export: 10/15/19 3:54 p Patient Name: ERASMO CUNNINGHAM Page 44029 at 1701 All edits/amendments must be made on the electronic document DICTATION DATE: 10/15/191699 POWDER NIPPER: REJI 10/15/191699 RPT#: [id number] DC DATE: STATUS: ADM IN [facility] [address] [place] [address] END OF REPORT
--- NOTE | 2019-10-15 18:00 | NUR ---
ALERT AND ORIENTED X4. SITTING UP IN BED WATCHING TV. UNIT 1 PRBC TRANSFUSION COMPLETE. CHANGE TUBING. INITIATE UNIT 2 PRBC TRANSFUSION. BP-135/60, HR-85, T-98.5, O2-94% RA. REMAIN IN ROOM TO MONITOR FOR ANY REACTION. INITIATE RATE AT 75mL/HR FOR FIRST 15 MINS.
--- NOTE | 2019-10-15 18:14 | NUR ---
ALERT AND ORIENTED X4. SITTING UP IN BED WATCHING TV. NO SIGNS OF REACTION. T-98.7, HR-85, R-16, BP-126/60, O2-94% RA. INCREASE TRANSFUSION RATE TO 125ml/HR. CONTINUE PLAN OF CARE AND SAFETY PRECAUTIONS.
[2019-10-15 19:05] VITALS: BP 107/59
--- NOTE | 2019-10-15 19:14 | NUR ---
PATIENT RESTING IN BED WITH NO S/S OF DISTRESS AND DENIES NEEDS AT THIS TIME. VSS. 2ND UNIT PRBC'S INFUSING. BED IN LOWEST POSITION, CALL LIGHT WITHIN REACH, AND BED ALARM ON. ENCOURAGED THE PATIENT TO CALL IF SHE HAS NEEDS. WILL CONTINUE TO MONITOR.
--- NOTE | 2019-10-15 20:12 | NUR ---
CHG BATH COMPLETED
[2019-10-16 04:00] VITALS: BP 127/68
[2019-10-16 07:17] VITALS: BP 124/69
[2019-10-16 07:21] LABS: ANION GAP 12.1 mmol/L (8-16); CARBON DIOXIDE 27.1 mmol/L (21.0-32.0); CREATININE - SERUM 0.9 mg/dL (0.6-1.3); POTASSIUM - SERUM 4.2 mmol/L (3.5-5.1)
--- NOTE | 2019-10-16 07:54 | NUR ---
AWAKE AND ALERT. ORIENTED X3. NO C/O AT THIS TIME. LUNGS ARE CLEAR BILATERALLY, NO COUGH NOTED. SKIN IS INTACT WITHOUT REDNESS EXCEPT INCISION TO RIGHT HIP WHICH IS CLEAN AND DRY. SL TO RIGHT HAND IS KINKED OFF AND D/C WITH CATHETER INTACT. SL TO RIGHT FOREARM IS PATENT WITHOUT REDNESS AT INSERTION SITE. SON AT BEDSIDE. DENIES NEEDS. BREAKFAST SERVED IN ROOM.
[2019-10-16 07:56] LABS: BASOPHILS 0.3 % (0-2); EOSINOPHILS 3.4 % (0-7); IMMATURE GRANULOCYTES 1.1 % (0-5); LYMPHOCYTES 40.8 % (15-50); MCH 29.8 pg (26.0-34.0); MCHC 34.2 g/dL (31.0-37.0); MEAN PLATELET VOLUME 8.8 fL (7.4-10.4); MONOCYTES 12.9 % (2-11); NEUTROPHILS 41.5 % (40-80); PLATELET COUNT 269 10x3/uL (130-400); WBC 11.7 10x3/uL (4.8-10.8)
[2019-10-16 08:05] LABS: HEMATOCRIT 32.2 % (36.0-48.0); MCV 87.3 fL (80.0-100.0); RBC 3.69 10x6/uL (4.00-5.40)
[2019-10-16] MEDS ORDERED: HYDROCODON-ACE1 EA10 PO (08:29)
[2019-10-16] MEDS ORDERED: ELIQUIS2.5 MG PO (08:29)
--- NOTE | 2019-10-16 10:10 | NUR ---
UP TO CHAIR AT BEDSIDE MAX ASSIST OF ONE. STAGE 2 TO COCCYX NOTED AND MEPELEX APPLIED. REQUESTED AND GIVEN ONE HYDROCODONE PO FOR C/O LEFT HIP PAIN AND RIGHT LOWER BACK PAIN LEVEL 8. WILL MONITOR.
[2019-10-16 10:22] VITALS: Ht 162.6 cm; Wt 49.9 kg
--- NOTE | 2019-10-16 11:59 | NUR ---
INCONTINENT LARGE AMOUNT OF URINE. SKIN CARE PER STAFF. ADULT BRIEF PLACED PER PATIENT REQUEST. ALSO REQUESTED AND GIVEN 0.5MG DILAUDID SLOW IVP FOR C/O RIGHT HIP PAIN LEVEL 10. WILL MONITOR.
--- NOTE | 2019-10-16 16:25 | NUR ---
REQUESTED AND GIVNE ONE HYDROCODONE PO FOR C/O RIGHT HIP PAIN LEVEL 8. WILL MONITOR.
--- NOTE | 2019-10-16 17:15 | NUR ---
ATE MOST OF SUPPER. MARSHA GIVEN IN BOOST. TOLERATED WELL. DENIES NEEDS. NO CHANGES NOTED.
--- NOTE | 2019-10-16 18:24 | NUR ---
IN CONTINENT OF URINE. SKIN CARE PER STAFF. MEPELEX APPLIED TO WOUND ON COCCYX. DENIES NEEDS. SON AT BEDSIDE.
[2019-10-16 19:51] VITALS: BP 114/63
--- NOTE | 2019-10-16 20:17 | NUR ---
LYING IN BED. ALERT AND ORIENTED X4. RESP EVEN AND NONLABORED. BRUISES NOTED TO BUE. INCISION X3 NOTED TO RT HIP WITH SMALL DRSG THAT ARE C/D/I. 1ST STEP OVERLAY MATTRESS IN USE. DRSG NOTED TO COCCYX. BRIEF IN USE FOR INCONTINENCE. SCDS IN USE BILAT. ABD IS DISTENDED. SALINE LOCK NOTED TO RT FOREARM. DENIES PAIN. BBS COARSE BUT DIMINISHED IN LLUVIA. PERIAREA IS RED. JENNIFER ALARM ON FOR PT SAFETY. MEDS GIVEN AT THIS TIME. ORDER NOTED FOR D/C TO REHAB.
--- NOTE | 2019-10-16 20:45 | NUR ---
REPORT CALLED TO MARI IN REHAB.
--- NOTE | 2019-10-16 20:59 | NUR ---
PT TRANSPORTED TO REHAB PER STAFF X2 VIA BED TO ROOM 1107
--- NOTE | 2019-10-18 22:20 | MORECARE ---
CASE MANAGEMENT DISCHARGE SUMMARY PATIENT: ERASMO CUNNINGHAM UNIT: [id number] ADM DATE: 10/14/19 AGE: 84 : 35 SEX: F ROOM/BED: D.1211 AUTHOR: JAZLYN,DOC PHYSICIAN: REFERRING PHYSICIAN: SOHEILA SHAH MD DATE OF SERVICE: 10/18/19 Discharge Plan Patient Name: ERASMO CUNNINGHAM Facility: [facility]:[place] : 1935 Planned Disposition: Inpatient Rehab Anticipated Discharge Date: 10/17/19 Discharge Date: 10/16/2019 Expected LOS: 3 Initial Reviewer: [email or web address] Initial Review Date: 10/14/2019 Generated: 10/18/19 11:19 pm DCP- Discharge Planning Updated by [email or web address]: Payton Navas on 10/15/19 3:[address] DC PLAN: Return to Inpatient Rehab at [facility] ANTICIPATED DC NEEDS: Rehab CM met with patient and her son Chris Liang to complete initial dc planning assessment. CM educated patient on the CM role and verbal consent given by patient to complete assessment. CM verified patient's address, phone number, and emergency contact phone numbers. Prior to first hospitalization patient lives at [facility] in the [facility]. Patient was in inpatient rehab and fell and was admitted back to the hospital. She plans to return to Rehab at [facility] when medically stable. SHAHRAM form presented, explained, and signed by the patient's son for IN Rehab at [facility]. Signed form left with patient and signed form placed on chart. Admission IMM presented and signed by patient's son as well. At discharge patient plans to return [facility] IN Rehab and feels this is a safe discharge. Patient denied further known discharge needs at this time. CM will continue to follow and will assist as needed with dc plans/needs. Payton Navas RN, [facility] DCPIA - Discharge Planning Initial Assessment Updated by [id number]: Payton Navas on 10/15/19 4:55 pm * Is the patient Alert and Oriented? Yes * PCP Dr. Orellana * Pharmacy [facility] [address]. * Preadmission Environment Assisted Living * Facility Name [facility] * ADLs Independent * Equipment Rolling Walker Wheelchair * List name and contact numbers for known caregivers / representatives who currently or will assist patient after discharge: Chris Liang - son - [phone] * Verbal permission to speak to the caregivers and representatives has been obtained from the patient. Yes * Community resources currently utilized None * Additional services required to return to the preadmission environment? Yes * Can the patient safely return to the preadmission environment? Yes * Has this patient been hospitalized within the prior 30 days at any hospital? Yes Coverage Notice Reviewer: [id number] Martir Navas Notice Issued Date-Time: 10/15/2019 16:50 Notice Type: IM Admission Notice Notice Delivered To: Family Member Relationship to Patient: Son Chimney Repairer Name: Chris Liang Delivery Method: - Babs Days: Prior Verbal Notification: Recipient Understood Notice: Yes Recipient Signature: Yes Med Rec Note Co-signed by Attending: Coverage Notice Comment: DC IMM delivered, explained, signed by the patient's son, and placed in his chart. Signed form also left with patient. Payton Navas RN, [facility] Last DP export: 10/15/19 4:01 p Patient Name: ERASMO CUNNINGHAM Page [id number] at 2220 All edits/amendments must be made on the electronic document DICTATION DATE: 10/18/192218 REFRIGERATOR MOVER: REJI 10/18/192218 RPT#: [id number] DC DATE:10/16/19 STATUS: DIS IN [facility] [address] [place] [address] END OF REPORT
== END 2019-10-16 20:59 | DRG 481 ==
LOC: D.M3 10:27
PROVIDERS: Orthopaedic Surgery; ADMIT Emergency Medicine; ATTEND Emergency Medicine
PROC: 0QH636Z Insertion of Intramedullary Internal Fixation Device into Right Upper Femur, Percutaneous Approach (ICD-10-PCS; principal; 2019-10-14 15:00)
DX: S72.102A Unspecified trochanteric fracture of left femur, initial encounter for closed fracture (principal); D62 Acute posthemorrhagic anemia; W19.XXXA Unspecified fall, initial encounter; I10 Essential (primary) hypertension; I25.10 Atherosclerotic heart disease of native coronary artery without angina pectoris

== ENCOUNTER 2019-10-16 16:11 | Inpatient (IN) | payer MEDICARE, OTHER ==
[~2019-10-16] VITALS: Ht 162.6 cm; Wt 49.0 kg
--- NOTE | ~2019-10-16 | RHP ---
PATIENT: ERASMO CUNNINGHAM MEDICAL RECORD: [id number] ACCOUNT: [id number] [facility] ADMISSION DATE: 10/16/19 REHABILITATION HISTORY AND PHYSICAL EXAMINATION POST ADMISSION PHYSICIAN EXAMINATION ADMITTING DIAGNOSIS: Comminuted displaced right hip fracture. HISTORY OF PRESENT ILLNESS: The patient admitted secondary to a comminuted hip fracture. She was released from the rehab, was progressing well, unfortunately she took a fall on 10/14/2019 while getting up to the restroom without assistance. 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 The patient previously lived at a [place], was independent with ADLs and mobility. Currently, she is mod to max assist for transfers. She is weightbearing as tolerated on right lower extremity, mod to Max for ADLs. She has had prolonged immobility, progressive generalized weakness, especially on lower extremities affecting her PT tolerance. She has comorbidities, which include coronary artery disease, carotid stenosis, constipation, hypertension, fatigue, hypothyroidism, osteopenia and weakness. She is currently being monitored closely for lab values and her cognition. She will have medication adjustments, monitor pain control. She has got decreased activity tolerance, decreased strength, balance deficits, decreased range of motion, impaired mobility, dyspnea on exertion. She has high fall risk and self-care deficits. These are all better to her discharge home. COMORBIDITIES: Include acute blood loss anemia, disuse myopathy, acute kidney injury, constipation and degenerative disc disease, debility, essential hypertension, fatigue, hyperlipidemia, hypothyroidism, osteopenia, and pacemaker placement. PAST MEDICAL HISTORY: Significant for thyroid problems, pacemaker placement, coronary artery disease, pneumonia, chronic back pain. PAST SURGICAL HISTORY: Includes pacemaker placement. She has had a hip surgery now and she has also had a broken jaw. ALLERGIES: SULFA, AMOXICILLIN AND CLINDAMYCIN. CURRENT MEDICATIONS: Include Pravachol 40 mg at bedtime, benazepril 10 mg daily, amlodipine 5 mg daily, potassium 20 mEq b.i.d., Ditropan 5 mg b.i.d., Ana 60 mg b.i.d., Colace 100 mg daily, Bumex 1 mg b.i.d., Eliquis 2.5 mg b.i.d., amiodarone 200 mg daily, Synthroid 75 mcg daily, hydrocodone 10/325 one tab q.6 hours p.r.n., and MiraLax 17 grams in 8 ounces of water daily. HABITS: No current alcohol or tobacco use. FAMILY HISTORY: Noncontributory. SOCIAL HISTORY: The patient hopes to return back to [facility] and get back to her prior level of functioning. REVIEW OF SYSTEMS: GENERAL: Does complain of some weakness. HEENT: Denies cold, cough, or congestion. HISTORY AND PHYSICAL [id number] ERASMO CUNNINGHAM CARDIOVASCULAR: Denies chest pain. PHYSICAL EXAMINATION: VITAL SIGNS: Stable, afebrile. GENERAL: A well-developed elderly female, in no acute distress, alert upon exam. HEENT: Normocephalic and atraumatic. Mucosa moist. NECK: Supple. No lymphadenopathy. LUNGS: Clear at this time. No wheezing or rales. HEART: Regular rate and rhythm. No murmurs, rubs or gallops. ABDOMEN: Soft, benign and nondistended. Positive bowel sounds times 4. EXTREMITIES: No clubbing, cyanosis or edema. She does have postop area that appears normal. NEUROLOGIC: She does have proximal muscle weakness. LABORATORY DATA: White count is 10,000, H&H of 9 and 28 and platelet count is 259. Sodium 131, potassium 3.7, BUN and creatinine of 26 and 0.9, and blood sugar is noted to be 87. ASSESSMENT: This is an 84-year-old female patient admitted to rehab with a working diagnosis of comminuted displaced intertrochanteric fracture. The patient has potential to make improvement. We instituted the following multidisciplinary therapies including, but not limited to physical, occupational, respiratory, speech, nutritional services, prosthetics and orthotics. Given her complex medical condition and risks for more complications, rehabilitation services cannot be provided at a low level of care such a skilled nurse facility. PLAN: 1. Admit to [facility] for the following modalities: A. Physical therapy to help with gait and ADLs. B. Occupational therapy to help with advancement of her ADLs. C. Case management to assist with discharge planning and placement options. D. Nutrition to assist with nutritional needs. E. Rehabilitation nursing to assist in monitoring the patient's underlying medical conditions and to assist with any type of bowel or bladder management. 2. The patient's current medication and medical care will be continued. 3. The patient will be placed on standard fall precautions. 4. We will continue on Eliquis as a blood thinner. 5. I will see again in the a.m. TRANSINT:[id number] Voice Confirmation ID: [id number] DOCUMENT ID: [id number] KIERSTEN notes whether there has been none or any medical/functional change since admission: - No change since pre-admission screen. KIERSTEN attests patient continues to be appropriate for IRF: - Continues to be appropriate. HISTORY AND PHYSICAL [id number] ERASMO CUNNINGHAM JOHN SCOTT MD CC: [id number] DICTATION DATE: 10/17/19 1347 PHYSICIAN OFFICE ASSISTANT: 10/17/19 1421 ADM IN [place] [address] [place] [address]
[~2019-10-16 16:11] MED LIST changes: +CALMOSEPTINE OI71 GM TOPICAL; +ELIQUIS2.5 MG PO; +FEXOFENADINE HC60 MG PO; +MIRALAX17 GM PO
--- NOTE | 2019-10-16 21:00 | NUR ---
RECEIVED PT TO FLOOR FROM ACUTE CARE VIA BED. ALERT AND ORIENTED X4. DENIES ANY NEEDS OR PAIN. ORIENTED TO FLOOR, ROOM, AND BATHROOM WELL FUNCTIONS OF REMOTE/CALL LIGHT. OVERLAY MATTRESS FUNCTIONING PROPERLY. PT BELONGINGS PLACED IN CLOSET. RIGHT FOREARM IV PATENT. DRESSING INTACT. CALL LIGHT WITHIN REACH. BED ALARM ON.
[2019-10-16 21:53] VITALS: BP 127/72; BMI 18.5
--- NOTE | 2019-10-16 23:40 | NUR ---
PT LYING IN BED HOB 30 DEGREES EYES CLOSED RESTING COMFORTABLY. RR EVEN AND UNLABORED. CALL LIGHT AND PERSONAL ITEMS WITHIN REACH. BED ALARM ON
--- NOTE | 2019-10-17 02:10 | NUR ---
INCONTINENCE CARE PROVIDED AND COMPLETE LINEN CHANGE D/T LARGE VOID. C/O RIGHT HIP PAIN 8/10 DEEP THROBBING PAIN. WILL ADMININSTER NORCO PER ORDER. CALL LIGHT WITHIN REACH. BED ALARM ON
--- NOTE | 2019-10-17 03:20 | NUR ---
PT LYING IN BED AWAKE AND ALERT. DENIES ANY NEEDS. REPORTS PAIN IMPROVED 3/10 ACHING IN RIGHT HIP. CALL LIGHT WITHIN REACH. FALL PRECAUTIONS IN PLACE. WILL CONTINUE TO MONITOR
--- NOTE | 2019-10-17 05:20 | NUR ---
INCONTINENCE CARE PROVIDED MED VOID. CALMOSEPTINE APPLIED TO BUTTOCKS AND PERIAREA. CALL LIGHT WITHIN REACH. BED ALARM ON
[2019-10-17 06:54] LABS: BASOPHILS 0.5 % (0-2); EOSINOPHILS 3.2 % (0-7); HEMATOCRIT 28.5 % (36.0-48.0); HEMOGLOBIN 9.3 g/dL (12-16); IMMATURE GRANULOCYTES 1.6 % (0-5); LYMPHOCYTES 47.7 % (15-50); MCH 29.2 pg (26.0-34.0); MCHC 32.6 g/dL (31.0-37.0); MEAN PLATELET VOLUME 8.8 fL (7.4-10.4); MONOCYTES 11.7 % (2-11); NEUTROPHILS 35.3 % (40-80); PLATELET COUNT 259 10x3/uL (130-400); RBC 3.19 10x6/uL (4.00-5.40); RDW 15.9 % (11.5-14.5)
[2019-10-17 07:01] LABS: MCV 89.3 fL (80.0-100.0)
[2019-10-17 07:11] LABS: ANION GAP 8.4 mmol/L (8-16); CALCIUM 7.8 mg/dL (8.5-10.1); CARBON DIOXIDE 27.3 mmol/L (21.0-32.0); CREATININE - SERUM 0.9 mg/dL (0.6-1.3); POTASSIUM - SERUM 3.7 mmol/L (3.5-5.1)
[2019-10-17 07:30] VITALS: BP 135/76
--- NOTE | 2019-10-17 08:58 | NUR ---
PT AM MEDS ADMINISTERED. PT PAIN 11/09. PT REQ AND REC'D PRN PAIN MEDICATION AT THIS TIME. PT DENIES FURTHER NEEDS. WCTM.
--- NOTE | 2019-10-17 10:00 | NUR ---
PATIENT ADMITTED TO REHAB FROM ACUTE FLOOR. HER PCP IS DR. RODRIGUEZ, SHE RESIDESS AT [facility] AND WILL DISCHARGE BACK THERE. SHE IS A CLIENT OF [facility] FOR HOME THERAPY. WILL CONTINUE TO FOLLOW WITH PATIENT AND WILL ASSIST WITH NEEDS.
[2019-10-17 11:40] VITALS: Ht 162.6 cm; Wt 49.0 kg
[2019-10-17 20:00] VITALS: BP 126/68
--- NOTE | 2019-10-17 20:00 | NUR ---
AWAKE AND ALERT. RESTING IN BED. RESPIRATIONS UNLABORED. DRESSINGS TO INCISIONS TO RIGHT HIP X 3 DRY AND INTACT. NO ACUTE DISTRESS NOTED. CALL LIGHT IN REACH.
--- NOTE | 2019-10-18 02:25 | NUR ---
INCONTINENT OF URINE. INCONTINENCE CARE GIVEN AND REPOSITIONED FOR COMFORT. NO DISTRESS NOTED.
--- NOTE | 2019-10-18 05:16 | NUR ---
QUIET HOURS. NO ACUTE CHANGES IN CONDITION THIS SHIFT. RESTING IN BED WITH NO DISTRESS NOTED.
[2019-10-18 06:39] LABS: HEMATOCRIT 29.9 % (36.0-48.0); HEMOGLOBIN 9.8 g/dL (12-16); MCH 29.6 pg (26.0-34.0); MCHC 32.8 g/dL (31.0-37.0); MCV 90.3 fL (80.0-100.0); MEAN PLATELET VOLUME 8.6 fL (7.4-10.4); PLATELET COUNT 299 10x3/uL (130-400); RBC 3.31 10x6/uL (4.00-5.40); RDW 16.3 % (11.5-14.5); WBC 10.5 10x3/uL (4.8-10.8)
[2019-10-18 06:43] LABS: ANION GAP 13.3 mmol/L (8-16); CALCIUM 7.6 mg/dL (8.5-10.1)
[2019-10-18 06:51] LABS: POTASSIUM - SERUM 4.3 mmol/L (3.5-5.1)
[2019-10-18 08:00] VITALS: BP 132/73
--- NOTE | 2019-10-18 08:00 | NUR ---
PATIENT IS ALERT/ORIENT. BED ALARM ON. CALL LIGHT WITHIN REACH. VOICES NO NEEDS AT THIS TIME. WILL CONTINUE WITH PLAN OF CARE
[2019-10-18 09:31] LABS: ANISOCYTOSIS OCC; LYMPHOCYTES 45 % (15-50); MONOCYTES 14 % (2-11); NEUTROPHILS 40 % (40-80); PLATELET ESTIMATE NORMAL
--- NOTE | 2019-10-18 10:14 | NUR ---
PATIENT IN REHAB ROOM. WORKING WITH PHYSICAL THERAPIST. PRN PAIN MEDICATION GIVEN FOR RIB PAIN PER PATIENT REQUEST
--- NOTE | 2019-10-18 13:49 | NUR ---
CARE TEAM MEETING: PATIENT SON ATTENDED THE MEETING. HIS QUESTIONS AND CONCERNS WERE ADDRESSED. WILL CONTINUE TO FOLLOW WITH PATIENT AND WILL ASSIT WITH NEEDS. PATIENT WILL BE RA AT NEXT MEETING.
--- NOTE | 2019-10-18 14:00 | NUR ---
I have reviewed this patient and I concur with the Shift Assessment completed by the Licensed Practical Nurse today this shift.
--- NOTE | 2019-10-18 17:33 | NUR ---
PATIENT HELPED INTO BATHROOM. MIN ASST FROM WHEEL CHAIR UNTO TOILET.
[2019-10-18 19:00] VITALS: BP 120/57
--- NOTE | 2019-10-18 20:31 | NUR ---
PT RECEIVED IN BED WITH EYES CLOSED AND CHEST RISING. NO S/S OF DISTRESS NOTED. EASILY AWOKEN TO VERBAL STIMULI. NO NEEDS MADE KNOWN AT THIS TIME. DENIES PAIN. CALL LIGHT IN REACH. WILL CONTINUE TO OBSERVE.
--- NOTE | 2019-10-19 00:02 | NUR ---
Patient is awake and talking to staff. Linens changed. Siderails x2, bed in the low position and call light within reach. The patient appears comfortable with no questions or concerns at this time.
--- NOTE | 2019-10-19 07:01 | NUR ---
STAGE II PRESSURE (2X2X0.2) COCCYX NOTED. BUTT PASTE APPLIED.
[2019-10-19 08:00] VITALS: BP 106/61
--- NOTE | 2019-10-19 08:00 | NUR ---
PT RESTING IN BED WITH EYES OPEN CALL LIGHT IN REACH EATING BREAKFAST SON AT BEDSIDE
--- NOTE | 2019-10-19 14:33 | NUR ---
Nutrition Follow-up: Diet: Regular + Ensure TID PO intake: ~42% average x last 9 meals; she reports that she does not have much of an appetite at all. Her son had brought her some food from [employer] that she had not eaten any of. She states that she is in too much pain to be able to eat. She requested scrambled eggs on dinner tray. She states that she is drinking Ensure. Last BM: 10/18/19. WT: 108# (10/17/19) Meds noted: bumex. Labs noted: Na 133(L), BUN 39(H) Skin: stage II PU to coccyx and R buttocks Recommend continue current diet and oral nutrition supplements. Encourage PO intake and will continue to honor food preferences/request. RD following.
--- NOTE | 2019-10-19 18:34 | NUR ---
PT RESTING IN BED WITH EYES OPEN CALL LIGHT IN REACH NO PROBLEMS WILL MONITER
--- NOTE | 2019-10-19 19:16 | NUR ---
AWAKE AND ALERT. RESTING IN BED WITH RESPIRATIONS UNLABORED. NO DISTRESS NOTED. CALL LIGHT IN REACH.
[2019-10-19 19:35] VITALS: BP 116/61
--- NOTE | 2019-10-20 01:04 | NUR ---
RESTING IN BED WITH RESPIRATIONS UNLABORED. NO DISTRESS NOTED. AWAKE WATCHING TV.
--- NOTE | 2019-10-20 05:18 | NUR ---
INCONTINENCE CARE GIVEN. C/O PAIN IN RIGHT HIP AND LEFT RIB AREA WITH MOVEMENT AND TURNING. WAS MEDICATED EARLIER FOR PAIN. SEE MAR. RESPIRARTIONS UNLABORED. CALL LIGHT IN REACH,
[2019-10-20 05:25] LABS: BASOPHILS 0.4 % (0-2); EOSINOPHILS 1.6 % (0-7); HEMATOCRIT 31.7 % (36.0-48.0); HEMOGLOBIN 10.2 g/dL (12-16); LYMPHOCYTES 49.9 % (15-50); MCH 29.5 pg (26.0-34.0); MCHC 32.2 g/dL (31.0-37.0); MCV 91.6 fL (80.0-100.0); MEAN PLATELET VOLUME 8.5 fL (7.4-10.4); MONOCYTES 12.6 % (2-11); NEUTROPHILS 33.5 % (40-80); PLATELET COUNT 328 10x3/uL (130-400); RBC 3.46 10x6/uL (4.00-5.40); RDW 16.1 % (11.5-14.5); WBC 9.9 10x3/uL (4.8-10.8)
[2019-10-20 05:42] LABS: ANION GAP 9.9 mmol/L (8-16); CALCIUM 8.3 mg/dL (8.5-10.1); CARBON DIOXIDE 28.8 mmol/L (21.0-32.0); POTASSIUM - SERUM 3.7 mmol/L (3.5-5.1)
[2019-10-20 08:00] VITALS: BP 142/67
--- NOTE | 2019-10-20 08:00 | NUR ---
PATIENT IS ALERT/ORIENT. FORGETFULL AT TIMES. CALL LIGHT WITHIN REACH. VOICES NO NEEDS AT THIS TIME. FAMILY STAYES WITH PATIENT MOST OF THE DAY. WILL CONTINUE WITH PLAN OF CARE
--- NOTE | 2019-10-20 11:04 | NUR ---
SALINE LOCK REMOVED FROM RIGHT FOREARM. PATIENT IS NOT ON ANY IV MEDICATIONS OF FLUIDS
[2019-10-20 19:08] VITALS: BP 107/68
--- NOTE | 2019-10-20 19:12 | NUR ---
AWAKE AND ALERT. SITTING IN WHEELCHAIR IN ROOM. MEDICATED FOR C/O PAIN. SEE MAR. RESPRIATIONS UNLABORED. NO ACUTE DISTRESS NOTED. CALL LIGHT IN REACH.
--- NOTE | 2019-10-21 01:10 | NUR ---
RESTING IN BED WITH EYES CLOSED AND RESPRIATIONS UNLABORED. NO ACUTE DISTRESS NOTED. CALL LIGHT IN REACH.
--- NOTE | 2019-10-21 03:22 | NUR ---
INCONTINENCE CARE GIVEN. HAVING PAIN WITH MOVEMENT. BEING TREATED PRN WITH MEDICATION ORDERED PER MD. NOW RESTING WITH RESPRIATIONS UNLABORED.
--- NOTE | 2019-10-21 05:12 | NUR ---
RESTING IN BED. RESPIRAITONS UNLABORED. NO ACUTE CHANGES THIS SHIFT. DOES STILL HAVE PAIN WHICH IS INCREASED WITH MOVEMENT OF ANY KIND. CALL LIGHT IN REACH.
[2019-10-21 07:52] VITALS: BP 177/53
--- NOTE | 2019-10-21 07:57 | NUR ---
PT RESTING IN BED WITH EYES OPEN CALL LIGHT IN REACH WILL MONITERM PT EATING BREAKFAST TOLERATING WELL
--- NOTE | 2019-10-21 10:00 | NUR ---
I have reviewed this patient and I concur with the Shift Assessment completed by the Licensed Practical Nurse today this shift.
[2019-10-21 19:25] VITALS: BP 105/54
--- NOTE | 2019-10-21 19:35 | NUR ---
AWAKE AND ALERT. SITTING IN WHEELCHAIR WATCHING TV IN ROOM. RESPIRATION UNLABORED. NO ACUTE DISTRESS NOTED. CALL LIGHT IN REACH.
--- NOTE | 2019-10-22 00:04 | NUR ---
RESTING IN BED WITH EYES CLOSED AND RESPIRATIONS UNLABORED. NO DISTRESS NOTED.
--- NOTE | 2019-10-22 03:02 | NUR ---
CONTINUES SLEEPING WITH RESPIRATIONS UNLABORED. NO DISTRESS NOTED.
--- NOTE | 2019-10-22 05:31 | NUR ---
QUIET HOURS. RESTED WELL. HAD INCONTINENT EPISODE OF URINE. UP TO SHOWER AND BED LINENS CHANGED. MEDICATED FOR PAIN. NOW RESTING IN BED WITH NO DISTRESS NOTED. CALL LIGHT IN REACH.
--- NOTE | 2019-10-22 08:27 | NUR ---
PT RESTING IN BED WITH EYES OPEN CALL LIGHT IN REACH WILL MONITER
--- NOTE | 2019-10-22 14:00 | NUR ---
I have reviewed this patient and I concur with the Shift Assessment completed by the Licensed Practical Nurse today this shift.
[2019-10-22 19:18] VITALS: BP 116/60
--- NOTE | 2019-10-22 19:33 | NUR ---
AWAKE AND ALERT. RESTING IN BED WATCHING TV. RESPIRATIONS UNLABORED. NO ACUTE DISTRESS NOTED. CALL LIGHT IN REACH.
--- NOTE | 2019-10-23 00:22 | NUR ---
RESTING QUIETLY WITH EYES CLOSED AND RESPIRATIONS UNLABORED. NO DISTRESS NOTED.
--- NOTE | 2019-10-23 02:35 | NUR ---
INCONTINENT OF URINE. BRIEF AND LINENS CHANGED. NOW RESTING WITH NO DISTRESS NOTED.
--- NOTE | 2019-10-23 05:12 | NUR ---
INCONTINENCE CARE GIVEN. MEDICATED FOR PAIN. SEE MAR. RESPIRATIONS UNLABORED. CALL LIGHT IN REACH.
[2019-10-23 06:53] LABS: ANION GAP 12.8 mmol/L (8-16); CALCIUM 8.7 mg/dL (8.5-10.1); CARBON DIOXIDE 29.7 mmol/L (21.0-32.0); CREATININE - SERUM 0.9 mg/dL (0.6-1.3); POTASSIUM - SERUM 3.5 mmol/L (3.5-5.1)
[2019-10-23 08:00] VITALS: BP 136/76
--- NOTE | 2019-10-23 08:00 | NUR ---
PATIENT SITTING UP IN BED TO EAT BREAKFAST. BED ALARM ON. CALL LIGHT WITHIN REACH. VOICES NO NEEDS AT THIS TIME. WILL CONTINUE WITH PLAN OF CARE
[2019-10-23 08:30] LABS: HEMATOCRIT 32.4 % (36.0-48.0); HEMOGLOBIN 10.4 g/dL (12-16); LYMPHOCYTES 39.4 % (15-50); MCH 29.5 pg (26.0-34.0); MCHC 32.1 g/dL (31.0-37.0); MCV 91.8 fL (80.0-100.0); MEAN PLATELET VOLUME 8.5 fL (7.4-10.4); NEUTROPHILS 44.3 % (40-80); PLATELET COUNT 459 10x3/uL (130-400); RBC 3.53 10x6/uL (4.00-5.40); RDW 16.1 % (11.5-14.5); WBC 8.2 10x3/uL (4.8-10.8)
--- NOTE | 2019-10-23 09:39 | NUR ---
Nutrition Follow Up: Interview: Met with patient this am. She stated her appetite has been poor and has not been experiencing a desire to eat. She denied recent N/V/D/C. She stated that she drinks ~ 2 Ensures per day. Diet: Regular Diet, Ensure TID PO intake: 66.7% avg x 9 meals BM x 1 on 10/19 Significant Meds: KCl, Colace, Bumex, Miralax Signifiant Labs: Na- 135(L), Cl- 9(L), BUN- 31(H) Clinical Dietitian to continue following and monitoring pt DHS
--- NOTE | 2019-10-23 11:36 | NUR ---
PATIENT SITTING UP IN BED. FIRST STEP MATTRESS ON BED. PATIENT HAS A VISATOR IN ROOM. VOICES NO NEEDS AT THIS TIME.
--- NOTE | 2019-10-23 17:08 | NUR ---
PATIENT SITTING UP IN WHEELCHAIR AT THE SIDE OF THE BED. STNAD BY ASST FOR TRANSFERS
--- NOTE | 2019-10-23 18:45 | NUR ---
BEDSIDE REPORT COMPLETE. PT LYING IN BED ON LEFT SIDE EYES CLOSED RESTING COMFORTABLY. NO SIGNS OF ACUTE DISTRESS NOTED. CALL LIGHT AND PERSONAL ITEMS WITHIN REACH. WOUND VAC TO RIGHT THIGH FUNCTIONING PROPERLY. FALL PRECAUTIONS IN PLACE. WILL CONTINUE TO MONITOR
--- NOTE | 2019-10-23 18:47 | NUR ---
BEDSIDE REPORT COMPLETE. PT SITTING UP IN W/C WATCHING TV. DENIES ANY NEEDS. C/O MILD DISCOMFORT 5/10 GENERALIZED BACK PAIN. DAY SHIFT NURSE ADMININSTERED [place]. WILL REEVALUATE LATER. CALL LIGHT AND PERSONAL ITEMS WITHIN REACH. FALL PRECAUTIONS IN PLACE. WILL CONTINUE TO MONITOR
[2019-10-23 19:29] VITALS: BP 109/58
--- NOTE | 2019-10-24 00:39 | NUR ---
PT LYING IN BED ON RIGHT SIDE EYES CLOSED RESTING. RR EVEN AND UNLABORED. CALL LIGHT WITHIN REACH. BED ALARM ON
--- NOTE | 2019-10-24 03:37 | NUR ---
PT LYING IN BED SUPINE EYES CLOSED ASLEEP. RR EVEN AND UNLABORED. CALL LIGHT WITHIN REACH
--- NOTE | 2019-10-24 05:20 | NUR ---
INCONTINENCE CARE PROVIDED. EPISODE OF LARGE URINE INCONTINENCY. DRESSING ON COCCYX CHANGED AREA CLEANSED 2X2 MEPILEX DRESSING APPLIED. STAGE II APPROX 0.5CM X 0.5CM WITHOUT DRAINAGE. PT SITTING UP IN BED WATCHING TV. NO OTHER NEEDS VOICED. CALL LIGHT AND WATER WITHIN REACH. BED ALARM ON
[2019-10-24 08:18] VITALS: BP 126/65
--- NOTE | 2019-10-24 08:28 | NUR ---
FAMILY AT BEDSIDE. PATIENT DENIES ANY PAIN AT THIS TIME. BED IS IN LOW POSITION AND CALL LIGHT IS IN REACH. MEDS GIVEN PER MAR.
--- NOTE | 2019-10-24 19:19 | NUR ---
PT UP IN WC, ABDUCTOR PILLOW IN USE, FLUIDS/CALL LIGHT WITHIN REACH, FALL PRECAUTIONS IN PLACE, NO NEEDS NOTED AT THIS TIME
--- NOTE | 2019-10-24 22:12 | NUR ---
PT REQUESTED AND RECIEVED PAIN MED, LEVEL 6/10 FOR HIP PAIN
[2019-10-25 00:12] VITALS: BP 124/61
--- NOTE | 2019-10-25 02:19 | NUR ---
PT ASLEEP, BATH GIVEN EARLIER, AROUSES TO VOICE, NO NEEDS NOTED, FLUIDS/CALL LIGHT WITHIN REACH,FALL PRECAUTIONS IN PLACE/FUNCTIONING
--- NOTE | 2019-10-25 03:06 | NUR ---
PT REQUESTED MEDS FOR BACK AND CORE PAIN, GIVEN WILL CONTINUE TO MONITOR
[2019-10-25 05:47] LABS: ANION GAP 10.6 mmol/L (8-16); CALCIUM 8.3 mg/dL (8.5-10.1); CARBON DIOXIDE 28.5 mmol/L (21.0-32.0)
[2019-10-25 05:54] LABS: POTASSIUM - SERUM 4.1 mmol/L (3.5-5.1)
[2019-10-25 06:22] LABS: HEMATOCRIT 29.7 % (36.0-48.0); HEMOGLOBIN 9.5 g/dL (12-16); LYMPHOCYTES 47.7 % (15-50); MCV 90.5 fL (80.0-100.0); MEAN PLATELET VOLUME 8.3 fL (7.4-10.4); PLATELET COUNT 428 10x3/uL (130-400); RBC 3.28 10x6/uL (4.00-5.40); RDW 15.2 % (11.5-14.5); WBC 7.6 10x3/uL (4.8-10.8)
--- NOTE | 2019-10-25 07:30 | NUR ---
PT RESTING IN BED WITH EYES OPEN CALL LIGHT IN REACH WILL MONITER
[2019-10-25 08:00] VITALS: BP 112/65
--- NOTE | 2019-10-25 13:59 | NUR ---
CARE TEAM MEETING: PATIENT SON ATTENDED THE MEETING. HIS QUESTIONS AND CONCERNS WERE ADDRESSED. TENATIVE DISCHARGE DATE IS 11/03/19. WILL CONTINUE TO FOLLOW WITH PATIENT AND WILL ASSIT WITH NEEDS.
--- NOTE | 2019-10-25 15:15 | NUR ---
PT RESTING IN BED WITH EYES OPEN CALL LIGHT IN REACH WILL MONITER
--- NOTE | 2019-10-25 18:23 | NUR ---
PT RESTING IN BED WITH EYES OPEN CALL LIGHT IN REACH WILL MONITER
[2019-10-25 19:42] VITALS: BP 137/74
--- NOTE | 2019-10-25 19:51 | NUR ---
AWAKE AND ALERT. RESTING IN BED. RESPIRATIONS UNLABORED. NO DISTRESS NOTED. CALL LIGHT IN REACH.
--- NOTE | 2019-10-26 00:07 | NUR ---
MOVED TO RECLINER FOR COMFORT AND MEDICATED FOR C/O PAIN. SEE MAR. RESPIRATIONS UNLABORED.
--- NOTE | 2019-10-26 03:28 | NUR ---
ASSISTED TO BATHROOM AND BACK TO BED. RESPIRAITONS UNLABORED. NO DISTRESS NOTED.
--- NOTE | 2019-10-26 05:05 | NUR ---
RESTING IN BED. RESPIRATIONS UNLABORED. SLEPT ON AND OFF TONIGHT. CONTINUES HAVING SOME PAIN WITH MOVEMENT. TREATED FOR PAIN ORDERED. SEE MAR. CALL LIGHT IN REACH.
--- NOTE | 2019-10-26 10:00 | NUR ---
I have reviewed this patient and I concur with the Shift Assessment completed by the Licensed Practical Nurse today this shift.
--- NOTE | 2019-10-26 18:01 | NUR ---
PT RESTING IN BED WITH EYES OPEN CALL LIGHT IN REACH WILL MONITER
[2019-10-26 18:38] VITALS: BP 125/74
--- NOTE | 2019-10-26 20:00 | NUR ---
PATIENT RECEIVED SITTING UP IN WHEELCHAIR. ASSESSMENT & VITAL SIGNS DONE. C/O PAIN ALL OVER. PATIENT GIVEN PAIN MEDICATION & RETURNED TO BED. WEDGE PLACED BETWEEN HER LEGS. ALARM ON. BED LOW. BEDSIDE TABLE & CALL LIGHT WITHIN REACH. WILL CONTINUE TO MONITOR.
--- NOTE | 2019-10-27 02:07 | NUR ---
I have reviewed this patient and I concur with the Shift Assessment completed by the Licensed Practical Nurse today this shift.
--- NOTE | 2019-10-27 03:35 | NUR ---
PATIENT EYES CLOSED. RESPIRATIONS 18 & EVEN. BED LOW. ALARM ON. BEDSIDE TABLE & CALL LIGHT WITHIN REACH. WILL CONTINUE TO MONITOR.
[2019-10-27 05:30] LABS: HEMATOCRIT 32.4 % (36.0-48.0); HEMOGLOBIN 10.2 g/dL (12-16); MCH 28.5 pg (26.0-34.0); MCHC 31.5 g/dL (31.0-37.0); MCV 90.5 fL (80.0-100.0); MEAN PLATELET VOLUME 8.4 fL (7.4-10.4); PLATELET COUNT 485 10x3/uL (130-400); RBC 3.58 10x6/uL (4.00-5.40); RDW 15.5 % (11.5-14.5); WBC 10.2 10x3/uL (4.8-10.8)
[2019-10-27 05:44] LABS: ANION GAP 12.7 mmol/L (8-16); CALCIUM 8.9 mg/dL (8.5-10.1); CARBON DIOXIDE 26.5 mmol/L (21.0-32.0); CREATININE - SERUM 1.3 mg/dL (0.6-1.3); POTASSIUM - SERUM 4.2 mmol/L (3.5-5.1)
[2019-10-27 06:35] LABS: LYMPHOCYTES 62 % (15-50); NEUTROPHILS 37 % (40-80)
[2019-10-27 06:36] LABS: PLATELET ESTIMATE NORMAL
--- NOTE | 2019-10-27 08:00 | NUR ---
PATIENT IS ALERT/ORIENT WITH SOME FOREGETFULLNESS NOTED. BED ALARM ON. CALL LIGHT WITHIN REACH. VOICES NO NEEDS AT THIS TIME. WILL CONTINUE WITH PLAN OF CARE
[2019-10-27 08:02] VITALS: BP 107/59
--- NOTE | 2019-10-27 11:41 | NUR ---
PATIENT IN REHAB ROOM. WORKING WITH PHYSICAL THERAPIST. RATES RIB PAIN AT A TWO ON PAIN SCALE RIGHT NOW
[2019-10-27 20:00] VITALS: BP 98/61
--- NOTE | 2019-10-27 20:00 | NUR ---
PATIENT RECEIVED SITTING UP IN BED. VITAL SIGNS & ASSESSMENT DONE. DENTURES IN CUP WITH CLEANSER. PAIN MEDICATION EFFECTIVE FOR PAIN. BED LOW. ALARM ON. CALL LIGHT WITHIN REACH. WILL CONTINUE TO MONITOR.
--- NOTE | 2019-10-27 20:45 | NUR ---
PATIENT USED CALL LIGHT FOR ASSIST. PATIENT TOILETED. VOID ONLY. RETURNED TO BED. ALARM ON. CALL LIGHT WITHIN REACH. WILL CONTINUE TO MONITOR.
--- NOTE | 2019-10-28 03:44 | NUR ---
PATIENT EYES CLOSED. RESPIRATIONS 18 & EVEN. BED LOW. ALARM ON. CALL LIGHT WITHIN REACH. WILL CONTINUE TO MONITOR.
--- NOTE | 2019-10-28 08:00 | NUR ---
PATIENT IS ALERT/ORIENT. VERY HARD OF HEARING. CALL LIGHT WITHIN REACH. BED ALARM ON. WILL CONTINUE WITH PLAN OF CARE
--- NOTE | 2019-10-28 08:15 | NUR ---
PATIENT SITTING UP IN WHEELCAIR BY BED. CALL LIGHT WITHIN REACH. CHAIR ALARM ON. WILL CONTINUE WITH PLAN OF CARE
[2019-10-28 08:37] VITALS: BP 113/69
--- NOTE | 2019-10-28 18:45 | NUR ---
BEDSIDE REPORT COMPLETE. PT SITTING UP IN W/C. ALERT AND ORIENTED X4. DENIES ANY NEEDS OR PAIN. NO SIGNS OF ACUTE DISTRESS NOTED. CALL LIGHT AND WATER WITHIN REACH. FALL PRECAUTIONS IN PLACE. WILL CONTINUE TO MONITOR
[2019-10-28 21:15] VITALS: BP 110/66
--- NOTE | 2019-10-29 01:06 | NUR ---
PT LYING IN BED EYES CLOSED RESTING COMFORTABLY. RR EVEN AND UNLABORED. CALL LIGHT AND WATER WITHIN REACH. FALL PRECAUTIONS IN PLACE
--- NOTE | 2019-10-29 04:22 | NUR ---
PT LYING IN BED EYES CLOSED RESTING COMFORTABLY. ABDUCTION PILLOW BETWEEN LOWER EXTREMITIES. NO SIGNS OF ACUTE DISTRESS NOTED. CALL LIGHT AND WATER WITHIN REACH. FALL PRECAUTIONS IN PLACE. WILL CONTINUE TO MONITOR
--- NOTE | 2019-10-29 08:15 | NUR ---
PT RESTING IN BED WITH EYES OPEN EATING BREAKFAST TOLERATING WELL WILL MONITER
[2019-10-29 09:23] VITALS: BP 117/64
--- NOTE | 2019-10-29 18:55 | NUR ---
BEDSIDE REPORT COMPLETE. PT LYING IN BED EYES CLOSED RESTING COMFORTABLY. RR EVEN AND UNLABORED. EASILY AROUSED WITH VERBAL STIMULI. DENIES ANY NEEDS OR PAIN. CALL LIGHT AND WATER WITHIN REACH. FALL PRECAUTIONS IN PLACE. WILL CONTINUE TO MONITOR
[2019-10-29 20:40] VITALS: BP 98/62
--- NOTE | 2019-10-30 00:46 | NUR ---
PT LYING IN BED EYES CLOSED. HOB ELEVATED. BED ALARM ON. CALL LIGHT WITHIN REACH. CPOC
--- NOTE | 2019-10-30 04:00 | NUR ---
INCONTINENCE CARE PROVIDED. COMPLETE LINEN CHANGE DONE. LARGE URINE INCONTINENCE. APPLIED MEPILEX DRESSING TO COCCYX. APPLIED CALMOSEPTINE TO BUTTOCKS AND PERIAREA. DENIES ANY OTHER NEEDS OR PAIN. CALL LIGHT AND WATER WITHIN REACH. BED ALARM ON. CPOC
[2019-10-30 05:43] LABS: ANION GAP 11.8 mmol/L (8-16); CALCIUM 8.1 mg/dL (8.5-10.1); CARBON DIOXIDE 27.3 mmol/L (21.0-32.0); CREATININE - SERUM 1.5 mg/dL (0.6-1.3); POTASSIUM - SERUM 4.1 mmol/L (3.5-5.1)
[2019-10-30 05:46] LABS: BASOPHILS 0.2 % (0-2); EOSINOPHILS 0.1 % (0-7); HEMOGLOBIN 9.9 g/dL (12-16); IMMATURE GRANULOCYTES 2.2 % (0-5); LYMPHOCYTES 37.6 % (15-50); MCH 28.5 pg (26.0-34.0); MCHC 30.9 g/dL (31.0-37.0); MCV 92.2 fL (80.0-100.0); MEAN PLATELET VOLUME 8.7 fL (7.4-10.4); MONOCYTES 8.4 % (2-11); NEUTROPHILS 51.5 % (40-80); PLATELET COUNT 472 10x3/uL (130-400); RBC 3.47 10x6/uL (4.00-5.40); RDW 16.1 % (11.5-14.5); WBC 8.3 10x3/uL (4.8-10.8)
--- NOTE | 2019-10-30 07:30 | NUR ---
A/A/0X3 PERSON, PLACE AND TIME. DENIES ANY PAIN AND NO REQUESTS VOICED. RESP EVEN AND UNLABORED ON ROOM AIR. ABDUCTOR PILLOW IN PLACE. ON FIRST STEP OVERLAY MATTRESS WORKING PROPERLY. SAMLL STAGE 2 ON COCCYX WITH MEPILEX IN PLACE. 3 INCISIONS RIGHT HIP C/D/I. CALL LIGHT IN REACH, BED IN LOW POSITION AND LOCKED.
[2019-10-30 08:20] VITALS: BP 102/57
--- NOTE | 2019-10-30 08:30 | NUR ---
THERAPIST INFORMED ME PT WAS MORE LETHARGIC TODAY THAN YESTERDAY AND COULD NOT PARTICIPATE IN THERAPY. DR. BASS NOTIFIED AND ORDERS RECEIVED. TEMP SLIGHTLY ELEVATED AT 100.4.
--- NOTE | 2019-10-30 13:25 | NUR ---
Nutrition follow-up: Diet: Regular PO intake 50-100% of meals Labs reviewed; Na low +BM Wt: 108# RDN following.
--- NOTE | 2019-10-30 13:47 | NUR ---
TEMP NOW 102.3 DR. BASS CONTACTED AND ORDERS RECEIVED. FLU, COVID AND UA SPECIMENS OBTAINTED AND TAKEN TO LAB.
[2019-10-30 14:09] LABS: GLUCOSE NEGATIVE (NEGATIVE); NITRITE NEGATIVE (NEGATIVE); SPECIFIC GRAVITY 1.025 (1.005-1.020)
[2019-10-30 14:10] LABS: BILIRUBIN NEGATIVE (NEGATIVE); KETONE NEGATIVE (NEGATIVE); UROBILINOGEN NORMAL (NORMAL)
[2019-10-30 14:12] LABS: BACTERIA MODERATE /hpf (NEGATIVE); EPITHELIAL CELLS 0-5 /hpf (0-5); RED CELLS - URINE 0-5 /hpf (0-5)
[2019-10-30] MEDS ORDERED: VOLTAREN100 GM TOPICAL (14:46)
[2019-10-30] MEDS ORDERED: GABAPENTIN100 MG PO (14:47)
[2019-10-30] MEDS ORDERED: MEGACE400 MG/10 PO (14:49)
[2019-10-30] MEDS ORDERED: NORVASC5 MG PO (14:50)
[2019-10-30] MEDS ORDERED: LOTENSIN 10 MG10 MG PO (14:50)
--- NOTE | 2019-10-30 15:40 | NUR ---
PT DISCHARGED AMD TRANSFERRED TO ROOM 2131 PER BED. REPORT CALLED TO KAYE JOHNSON. ALL PERSONAL BELONGINGS TAKEN TO ROOM.
--- NOTE | 2019-10-30 15:45 | NUR ---
DUE TO CHANGE IN MEDICAL CONDITION PATIENT DISCHARGED FROM [facility] AND ADMITTED TO ACUTE FLOOR.
== END 2019-10-30 15:40 | disposition short-term general hospital (02) | DRG 560 ==
LOC: D.REHAB 16:11
PROVIDERS: ADMIT Emergency Medicine; ATTEND Emergency Medicine
DX: S72.001D Fracture of unspecified part of neck of right femur, subsequent encounter for closed fracture with routine healing (principal); D62 Acute posthemorrhagic anemia; N17.9 Acute kidney failure, unspecified; W19.XXXD Unspecified fall, subsequent encounter; G72.89 Other specified myopathies; K59.00 Constipation, unspecified; R53.81 Other malaise; I10 Essential (primary) hypertension; R53.83 Other fatigue; E78.5 Hyperlipidemia, unspecified; E03.9 Hypothyroidism, unspecified; M85.80 Other specified disorders of bone density and structure, unspecified site; Z95.0 Presence of cardiac pacemaker; I25.10 Atherosclerotic heart disease of native coronary artery without angina pectoris; I50.9 Heart failure, unspecified; R41.82 Altered mental status, unspecified

== ENCOUNTER 2019-10-30 16:10 | Inpatient (IN) | payer MEDICARE, OTHER ==
[~2019-10-30] VITALS: Ht 162.6 cm; Wt 49.0 kg
[~2019-10-30 16:10] MED LIST changes: +GABAPENTIN100 MG PO; +LOTENSIN 10 MG10 MG PO; +MEGACE400 MG/10 PO; +VOLTAREN100 GM TOPICAL
[2019-10-30 16:28] VITALS: BP 115/57
--- NOTE | 2019-10-30 16:28 | NUR ---
RECEIVED PT TO ROOM 2131 VIA BED, PT ALERT BUT CONFUSED TO TIME AND SITUATION. PLACED PT ON DROPLET ISOLATION FOR FLU B. ORIENTED PT TO ROOM AND CALL LIGHT. WILL ASSESS PT AND START PLAN OF CARE.
[2019-10-30 19:48] VITALS: BP 115/57; BMI 18.5
--- NOTE | 2019-10-30 20:15 | NUR ---
PRACTICING ISO AND DISTACING PREVIOUSLY SPOKE TO PT BY PHONE FIRST PHYSICAL CONTACT AT THIS TIME PT SEEMS ALERT AND ANSERS MY QUESTIONS WELL NEEDS SEEN TO AND MEDS GIVEN BED LOW AND LOCKED CALL LIGHT IS WITH PT
[2019-10-31 00:27] VITALS: BP 124/60
--- NOTE | 2019-10-31 03:34 | NUR ---
I have reviewed this patient and I concur with the Shift Assessment completed by the Licensed Practical Nurse today this shift.
[2019-10-31 05:29] LABS: BASOPHILS 0.7 % (0-2); EOSINOPHILS 0.3 % (0-7); HEMOGLOBIN 8.9 g/dL (12-16); IMMATURE GRANULOCYTES 2.4 % (0-5); LYMPHOCYTES 34.2 % (15-50); MCH 28.1 pg (26.0-34.0); MCHC 30.7 g/dL (31.0-37.0); MCV 91.5 fL (80.0-100.0); MEAN PLATELET VOLUME 8.5 fL (7.4-10.4); NEUTROPHILS 48.4 % (40-80); PLATELET COUNT 395 10x3/uL (130-400); RBC 3.17 10x6/uL (4.00-5.40); RDW 16.1 % (11.5-14.5); WBC 7.4 10x3/uL (4.8-10.8)
[2019-10-31 05:42] VITALS: BP 112/58
[2019-10-31 06:38] LABS: ALBUMIN 1.8 g/dL (3.4-5.0); ANION GAP 11.5 mmol/L (8-16); BILIRUBIN - TOTAL 0.54 mg/dL (0.2-1.3); CALCIUM 7.9 mg/dL (8.5-10.1); CARBON DIOXIDE 26.2 mmol/L (21.0-32.0); MAGNESIUM - SERUM 1.9 mg/dL (1.8-2.4); PHOSPHOROUS 3.6 mg/dL (2.5-4.9); POTASSIUM - SERUM 3.7 mmol/L (3.5-5.1); PROTEIN - SERUM 6.3 g/dL (6.4-8.2)
[2019-10-31 06:44] LABS: CREATININE - SERUM 1.1 mg/dL (0.6-1.3)
[2019-10-31 06:46] LABS: C-REACTIVE PROTEIN 21.6 mg/dL (0.0-0.9)
[2019-10-31 07:59] LABS: ERYTHROCYTE SEDIMENTATION RATE 72 mm/hr (0-30)
[2019-10-31 09:54] VITALS: BP 120/69
--- NOTE | 2019-10-31 10:58 | MORECARE ---
CASE MANAGEMENT DISCHARGE SUMMARY PATIENT: ERASMO CUNNINGHAM UNIT: [id number] ADM DATE: 10/30/19 AGE: 84 : 35 SEX: F ROOM/BED: D.2131 AUTHOR: GRIFFIN HOBSON PHYSICIAN: REFERRING PHYSICIAN: LEONARD BASS MD DATE OF SERVICE: 10/31/19 Discharge Plan Patient Name: ERASMO CUNNINGHAM [facility] [facility] 1935 Planned Disposition: Inpatient Rehab Anticipated Discharge Date: Discharge Date: Expected LOS: Initial Reviewer: [email or web address] Initial Review Date: 10/31/2019 Generated: 10/31/19 11:57 am Patient Name: ERASMO CUNNINGHAM Page 75901 at 1058 All edits/amendments must be made on the electronic document DICTATION DATE: 10/31/19 105 PHOTOFLASH POWDER MIXER: REJI 10/31/19 1057 RPT#: [id number] DC DATE: STATUS: ADM IN [facility] [address] [place] [address] END OF REPORT
--- NOTE | 2019-10-31 12:02 | MORECARE ---
CASE MANAGEMENT DISCHARGE SUMMARY PATIENT: ERASMO CUNNINGHAM UNIT: [id number] ADM DATE: 10/30/19 AGE: 84 : 35 SEX: F ROOM/BED: D.2131 AUTHOR: GRIFFIN HOBSON PHYSICIAN: REFERRING PHYSICIAN: LEONARD BASS MD DATE OF SERVICE: 10/31/19 Discharge Plan Patient Name: ERASMO CUNNINGHAM [facility] [facility] 1935 Planned Disposition: Inpatient Rehab Anticipated Discharge Date: Discharge Date: Expected LOS: Initial Reviewer: [email or web address] Initial Review Date: 10/31/2019 Generated: 10/31/19 1:01 pm Last DP export: 10/31/19 9:58 a Patient Name: ERASMO CUNNINGHAM Page 42943 at 1202 All edits/amendments must be made on the electronic document DICTATION DATE: 10/31/19 1201 HARDBOARD COATING MACHINE OPERATOR: DM 10/31/19 1201 RPT#: [id number] DC DATE: STATUS: ADM IN [facility] [address] [place] [address] END OF REPORT
--- NOTE | 2019-10-31 12:29 | MORECARE ---
CASE MANAGEMENT DISCHARGE SUMMARY PATIENT: ERASMO CUNNINGHAM UNIT: [id number] ADM DATE: 10/30/19 AGE: 84 : 35 SEX: F [facility] AUTHOR: GRIFFIN HOBSON PHYSICIAN: REFERRING PHYSICIAN: LEONARD BASS MD DATE OF SERVICE: 10/31/19 Discharge Plan Patient Name: ERASMO CUNNINGHAM [facility] [facility] 1935 Planned Disposition: Inpatient Rehab Anticipated Discharge Date: Discharge Date: Expected LOS: Initial Reviewer: [email or web address] Initial Review Date: 10/31/2019 Generated: 10/31/19 1:29 pm DCPIA - Discharge Planning Initial Assessment Updated by [email or web address]: Alton Edgar on 10/31/19 12:21 pm * Is the patient Alert and Oriented? Yes * How many steps to enter\exit or inside your home? NONE * PCP DR. VORA * [facility]acy [facility] * Preadmission Environment Acute Inpatient Rehab * Facility Name [facility] IN[facility]IENT RE[facility] * ADLs Partial Dependent * Partial ADLs (Assistance needed) Ambulation Bathing Medication Management Transfers * Equipment Rolling Walker Wheelchair * Other Equipment NO MEDICAL EQUIPMENT PROVIDER PREFERENCE * List name and contact numbers for known caregivers / representatives who currently or will assist patient after discharge: TORI MERCER, VANGIE, * Verbal permission to speak to the caregivers and representatives has been obtained from the patient. N/A * Community resources currently utilized None * Please name any agencies selected above. NONE * Additional services required to return to the preadmission environment? No * Can the patient safely return to the preadmission environment? Yes * Has this patient been hospitalized within the prior 30 days at any hospital? Yes Last DP export: 10/31/19 11:02 a Patient Name: ERASMO CUNNINGHAM Page 68962 at 1229 All edits/amendments must be made on the electronic document DICTATION DATE: 10/31/19 1229 QUALITY PROCESS ENGINEER: REJI 10/31/19 1229 RPT#: [id number] DC DATE: STATUS: ADM IN [facility] [address] [place] [address] END OF REPORT
--- NOTE | 2019-10-31 12:36 | MORECARE ---
CASE MANAGEMENT DISCHARGE SUMMARY PATIENT: ERASMO CUNNINGHAM UNIT: [id number] ADM DATE: 10/30/19 AGE: 84 : 35 SEX: F ROOM/BED: D.2131 AUTHOR: GRIFFIN HOBSON PHYSICIAN: REFERRING PHYSICIAN: LEONARD BASS MD DATE OF SERVICE: 10/31/19 Discharge Plan Patient Name: ERASMO CUNNINGHAM [facility] [facility] 1935 Planned Disposition: Inpatient Rehab Anticipated Discharge Date: Discharge Date: Expected LOS: Initial Reviewer: [email or web address] Initial Review Date: 10/31/2019 Generated: 10/31/19 1:36 pm Comments DCP- Discharge Planning Updated by [email or web address]: Alton Edgar on 10/31/19 11:[address] Patient Name: ERASMO CUNNINGHAM Admission Status: Elective Accout number: [id number] Admission Date: 10-30-2019 : 1935 Admission Diagnosis: Attending: BALDEMAR BASS Current LOS: 1 Anticipated DC Date: Planned Disposition: Inpatient Rehab Primary Insurance: MEDICARE A & B PLANNED EXTERNAL PROVIDER: [facility] INPATIENT REHAB Discharge Planning Comments: CM ATTEPTED TO SPEAK TO PT VIA ROOM PHONE TO DISCUSS DISCHARGE PLANNING AND NEEDS. PT DID NOT ANSWER ROOM PHONE. CM CALLED PT'S SON, TORI MERCER, . PT LIVES AT [facility] AND HAS BEEN IN INPATIENT REHAB AT [place]. THERE WAS SOME DISCUSSION OF OTHER REHAB PLACEMENT WHILE PT WAS IN THE INPATIENT REHAB BUT THEY WOULD PREFER TO RETURN TO INPATIENT REHAB AT [place] IF POSSIBLE ONCE PT IS BETTER. PT HAS ROLLING WALKER AND WHEELCHAIR AT HOME. PT HAD NO OUTSIDE SERVICES ASSISTING IN THE HOME. CM DISCUSSED AVAILABILITY OF HOME HEALTH, REHAB SERVICES AND MEDICAL EQUIPMENT. TORI WOULD LIKE TO SPEAK TO PT TO MAKE SURE THAT HER INPUT IS IN FOR ALL DECISIONS. PT AND SON WOULD PREFER TO RETURN TO [facility] INPATIENT REHAB WHEN MEDICALLY STABLE. PT WILL NEED THERAPY EVALUATIONS ONCE COVID19 TESTING RESULTS ARE COMPLETED WELL INPATIENT PRESCREENING ORDER. CM TO CONTINUE TO FOLLOW AND ASSIST NEEDED. Clinical Appeals Auditor: Alton Edgar DCPIA - Discharge Planning Initial Assessment Updated by [email or web address]: Alton Edgar on 10/31/19 12:21 pm * Is the patient Alert and Oriented? Yes * How many steps to enter\exit or inside your home? NONE * PCP DR. VORA * [facility]acy [facility] * Preadmission Environment Acute Inpatient Rehab * Facility Name [facility] INPATIENT REH[facility] * ADLs Partial Dependent * Partial ADLs (Assistance needed) Ambulation Bathing Medication Management Transfers * Equipment Rolling Walker Wheelchair * Other Equipment NO MEDICAL EQUIPMENT PROVIDER PREFERENCE * List name and contact numbers for known caregivers / representatives who currently or will assist patient after discharge: TORI MERCER, SON, * Verbal permission to speak to the caregivers and representatives has been obtained from the patient. N/A * Community resources currently utilized None * Please name any agencies selected above. NONE * Additional services required to return to the preadmission environment? No * Can the patient safely return to the preadmission environment? Yes * Has this patient been hospitalized within the prior 30 days at any hospital? Yes Last DP export: 10/31/19 11:29 a Patient Name: ERASMO CUNNINGHAM Page 41899 at 1236 All edits/amendments must be made on the electronic document DICTATION DATE: 10/31/19 1236 GERONTOLOGY AIDE: REJI 10/31/19 1236 RPT#: [id number] DC DATE: STATUS: ADM IN [facility] [address] [place] [address] END OF REPORT
[2019-10-31 12:42] VITALS: Ht 162.6 cm; Wt 49.0 kg
--- NOTE | 2019-10-31 14:08 | NUR ---
I have reviewed this patient and I concur with the Shift Assessment completed by the Licensed Practical Nurse today this shift.
[2019-10-31 16:06] VITALS: BP 125/63
--- NOTE | 2019-10-31 19:05 | NUR ---
PT IS IN DROPLET ISOLATION ATTEMPTING MINIMAL TRIPS INTO PT ROOM -SPOKE TO PT BY PHONE PT WAS ALERT AND OX4 AND DENIES NEEDS AT THIS TIME
--- NOTE | 2019-10-31 20:03 | NUR ---
SPOKE WITH FAMILY OVER MISSING BOTTOM DENTURES I HAVE LOCATED GLASSES AND TOP DENTURES SEVERAL TIME FOLDED INTO LINENS
[2019-11-01 01:09] VITALS: BP 114/56
--- NOTE | 2019-11-01 05:27 | NUR ---
I have reviewed this patient and I concur with the Shift Assessment completed by the Licensed Practical Nurse today this shift.
[2019-11-01 07:03] LABS: BASOPHILS 0.3 % (0-2); EOSINOPHILS 0.4 % (0-7); HEMATOCRIT 27.1 % (36.0-48.0); HEMOGLOBIN 8.4 g/dL (12-16); IMMATURE GRANULOCYTES 2.4 % (0-5); LYMPHOCYTES 33.5 % (15-50); MCH 27.9 pg (26.0-34.0); MEAN PLATELET VOLUME 8.7 fL (7.4-10.4); MONOCYTES 12.4 % (2-11); PLATELET COUNT 418 10x3/uL (130-400); RBC 3.01 10x6/uL (4.00-5.40); RDW 15.7 % (11.5-14.5); WBC 7.1 10x3/uL (4.8-10.8)
[2019-11-01 07:47] LABS: ALBUMIN 1.8 g/dL (3.4-5.0); BILIRUBIN - TOTAL 0.36 mg/dL (0.2-1.3); CALCIUM 7.3 mg/dL (8.5-10.1); CARBON DIOXIDE 25.1 mmol/L (21.0-32.0); MAGNESIUM - SERUM 1.6 mg/dL (1.8-2.4); PROTEIN - SERUM 5.5 g/dL (6.4-8.2)
[2019-11-01 07:50] LABS: ANION GAP 11.5 mmol/L (8-16); PHOSPHOROUS 2.6 mg/dL (2.5-4.9); POTASSIUM - SERUM 4.6 mmol/L (3.5-5.1)
[2019-11-01 09:30] VITALS: BP 116/66
--- NOTE | 2019-11-01 10:42 | NUR ---
I have reviewed this patient and I concur with the Shift Assessment completed by the Licensed Practical Nurse today this shift.
--- NOTE | 2019-11-01 10:55 | NUR ---
Discussed this patient in the IDT meeting today. If she is Covid negative she can return to rehab within 72 hrs as an interupted stay. Tonight at midnight would be the end of the 72 hrs. She was transferred to the acute hospital on 10/30/19. Idalia Menjivar RN Clinical Liaison, Rehab
--- NOTE | 2019-11-01 12:38 | NUR ---
PT NEGATIVE FOR COVID-19 BUT POSITIVE FOR FLU B. MOVED PT AND ALL BELONGINGS TO ROOM 1. PT NOW ON REGULAR DROPLET ISOLATION.
[2019-11-01] MEDS ORDERED: MAXIPIME 2 GM/D52 G1 IV (16:01)
[2019-11-01] MEDS ORDERED: Vibramycin 100 MG/D5 IV (16:01)
[2019-11-01] MEDS ORDERED: TAMIFLU75 MG PO (16:02)
--- NOTE | 2019-11-01 16:13 | MORECARE ---
CASE MANAGEMENT DISCHARGE SUMMARY PATIENT: ERASMO CUNNINGHAM UNIT: [id number] ADM DATE: 10/30/19 AGE: 84 : 35 SEX: F ROOM/BED: D.7047 AUTHOR: JAZLYN,DOC PHYSICIAN: REFERRING PHYSICIAN: SOHEILA SHAH MD DATE OF SERVICE: 11/01/19 Discharge Plan Patient Name: ERASMO CUNNINGHAM [facility] [facility] 1935 Planned Disposition: Inpatient Rehab Anticipated Discharge Date: 11/01/19 Discharge Date: Expected LOS: 2 Initial Reviewer: [email or web address] Initial Review Date: 10/31/2019 Generated: 11/01/19 5:13 pm DCP- Discharge Planning Updated by [email or web address]: Alton Edgar on 10/31/19 11:[address] Patient Name: ERASMO CUNNINGHAM Admission Status: Elective Accout number: [id number] Admission Date: 10-30-2019 : 1935 Admission Diagnosis: Attending: BALDEMAR BASS Current LOS: 1 Anticipated DC Date: Planned Disposition: Inpatient Rehab Primary Insurance: MEDICARE A & B PLANNED EXTERNAL PROVIDER: [facility] INPATIENT REH[facility] Discharge Planning Comments: CM ATTEPTED TO SPEAK TO PT VIA ROOM PHONE TO DISCUSS DISCHARGE PLANNING AND NEEDS. PT DID NOT ANSWER ROOM PHONE. CM CALLED PT'S SON, TORI MERCER, . PT LIVES AT [facility] AND HAS BEEN IN INPATIENT REHAB AT [facility]. THERE WAS SOME DISCUSSION OF OTHER REHAB PLACEMENT WHILE PT WAS IN THE INPATIENT REHAB BUT THEY WOULD PREFER TO RETURN TO INPATIENT REHAB AT [facility] IF POSSIBLE ONCE PT IS BETTER. PT HAS ROLLING WALKER AND WHEELCHAIR AT HOME. PT HAD NO OUTSIDE SERVICES ASSISTING IN THE HOME. CM DISCUSSED AVAILABILITY OF HOME HEALTH, REHAB SERVICES AND MEDICAL EQUIPMENT. TORI WOULD LIKE TO SPEAK TO PT TO MAKE SURE THAT HER INPUT IS IN FOR ALL DECISIONS; CHOICE COMPLETED FOR [facility] INPATIENT RE[facility]. PT AND SON WOULD PREFER TO RETURN TO [facility] INPATIENT REHAB WHEN MEDICALLY STABLE. PT WILL NEED THERAPY EVALUATIONS ONCE COVID19 TESTING RESULTS ARE COMPLETED WELL INPATIENT PRESCREENING ORDER. CM TO CONTINUE TO FOLLOW AND ASSIST NEEDED. Belting Inspector: Alton [place] DCPIA - Discharge Planning Initial Assessment Updated by [id number]: Alton Edgar on 10/31/19 12:21 pm * Is the patient Alert and Oriented? Yes * How many steps to enter\exit or inside your home? NONE * PCP DR. VORA * [facility]acy [facility] * Preadmission Environment Acute Inpatient Rehab * Facility Name [facility] IN[facility] * ADLs Partial Dependent * Partial ADLs (Assistance needed) Ambulation Bathing Medication Management Transfers * Equipment Rolling Walker Wheelchair * Other Equipment NO MEDICAL EQUIPMENT PROVIDER PREFERENCE * List name and contact numbers for known caregivers / representatives who currently or will assist patient after discharge: TORI MERCER, SON, * Verbal permission to speak to the caregivers and representatives has been obtained from the patient. N/A * Community resources currently utilized None * Please name any agencies selected above. NONE * Additional services required to return to the preadmission environment? No * Can the patient safely return to the preadmission environment? Yes * Has this patient been hospitalized within the prior 30 days at any hospital? Yes Coverage Notice Reviewer: [email or web address] Martir Edgar Notice Issued Date-Time: 10/31/2019 10:45 Notice Type: Patient Choice Letter Notice Delivered To: Family Member Relationship to Patient: Son Campground Attendant Name: TORI MERCER Delivery Method: PHONE - Phone Babs Days: Prior Verbal Notification: Recipient Understood Notice: Yes Recipient Signature: Med Rec Note Co-signed by Attending: Coverage Notice Comment: [facility] Reviewer: [email or web address] Martir Edgar Notice Issued Date-Time: 11/01/2019 16:00 Notice Type: IM Discharge Notice Notice Delivered To: Patient Relationship to Patient: Campground Attendant Name: Delivery Method: HAND - Hand Delivered Babs Days: Prior Verbal Notification: Recipient Understood Notice: Yes Recipient Signature: Med Rec Note Co-signed by Attending: Coverage Notice Comment: Last DP export: 10/31/19 11:36 a Patient Name: ERASMO CUNNINGHAM Page 81377 at 1613 All edits/amendments must be made on the electronic document DICTATION DATE: 11/01/19 1613 FISHERY DIVISION CHIEF: REJI 11/01/19 1613 RPT#: [id number] DC DATE: STATUS: ADM IN [facility] [address] [place] [address] END OF REPORT
--- NOTE | 2019-11-01 16:21 | MORECARE ---
CASE MANAGEMENT DISCHARGE SUMMARY PATIENT: ERASMO CUNNINGHAM UNIT: [id number] ADM DATE: 10/30/19 AGE: 84 : 35 SEX: F ROOM/BED: D.0591 AUTHOR: JAZLYN,DOC PHYSICIAN: REFERRING PHYSICIAN: SOHEILA SHAH MD DATE OF SERVICE: 11/01/19 Discharge Plan Patient Name: ERASMO CUNNINGHAM [facility] [facility] 1935 Planned Disposition: Inpatient Rehab Anticipated Discharge Date: 11/01/19 Discharge Date: Expected LOS: 2 Initial Reviewer: [email or web address] Initial Review Date: 10/31/2019 Generated: 11/01/19 5:20 pm Comments DCP- Discharge Planning Updated by [email or web address]: Alton Edgar on 11/01/19 3:[address] Patient Name: ERASMO CUNNINGHAM Encounter No: [id number] : 1935 Primary Insurance: MEDICARE A & B Anticipated DC Date: 11-01-2019 Planned Disposition: Inpatient Rehab External Planned Provider: [facility] IN[facility]IENT [facility] DCP follow-up note: CM SPOKE TO JAL[facility] OF INPATIENT REHAB, THEY PLAN TO ACCEPT PT TODAY IF PT IS STABLE FOR REHAB; JALIL ADVISED THEY CAN COMPLETE FLU TREATMENT IN REHAB, HAVE PRIVATE ROOM, 1109, FOR PATIENT. CM NOTIFIED SIMON [facility]REEZ WHO WILL PROVIDE DISCHARGE ORDERS FOR REHAB TODAY. PT NOTIFIED VIA PHONE, IN AGREEMENT WITH DISCHARGE TO INPATIENT REHAB. IMPORTANT MESSAGE FROM [employer] PROVIDED VIA PHONE AND PERSONALLY VIA HAND DELIVERY. PT ASKED CM TO CALL HER SON. CM CALLED AND NOTIFIED PT'S SON VIA PHONE, WHO IS ALSO IN AGREEMENT WITH REHAB TODAY. BEDSIDE NURSE NOTIFIED. PT WILL ADMIT TO ROOM 1109 TODAY AT [facility] INPATIENT REHAB. CALL REPORT TO INPATIENT REHAB WHEN ORDERS AND DISCHARGE ARE COMPLETE. ERVIN Arellano DCP- Discharge Planning Updated by [id number]: Alton Edgra on 10/31/19 11:[address] Patient Name: ERASMO CUNNINGHAM Admission Status: Elective Accout number: [id number] Admission Date: 10-30-2019 : 1935 Admission Diagnosis: Attending: BALDEMAR BASS Current LOS: 1 Anticipated DC Date: Planned Disposition: Inpatient Rehab Primary Insurance: MEDICARE A & B PLANNED EXTERNAL PROVIDER: [facility] INPATIENT REH[facility] Discharge Planning Comments: CM ATTEPTED TO SPEAK TO PT VIA ROOM PHONE TO DISCUSS DISCHARGE PLANNING AND NEEDS. PT DID NOT ANSWER ROOM PHONE. CM CALLED PT'S SON, TORI MERCER, . PT LIVES AT [facility] AND HAS BEEN IN INPATIENT REHAB AT [place]. THERE WAS SOME DISCUSSION OF OTHER REHAB PLACEMENT WHILE PT WAS IN THE INPATIENT REHAB BUT THEY WOULD PREFER TO RETURN TO INPATIENT REHAB AT [place] IF POSSIBLE ONCE PT IS BETTER. PT HAS ROLLING WALKER AND WHEELCHAIR AT HOME. PT HAD NO OUTSIDE SERVICES ASSISTING IN THE HOME. CM DISCUSSED AVAILABILITY OF HOME HEALTH, REHAB SERVICES AND MEDICAL EQUIPMENT. TORI WOULD LIKE TO SPEAK TO PT TO MAKE SURE THAT HER INPUT IS IN FOR ALL DECISIONS; CHOICE COMPLETED FOR [facility] INPATIENT REH[facility]. PT AND SON WOULD PREFER TO RETURN TO [facility] INPATIENT REHAB WHEN MEDICALLY STABLE. PT WILL NEED THERAPY EVALUATIONS ONCE COVID19 TESTING RESULTS ARE COMPLETED WELL INPATIENT PRESCREENING ORDER. CM TO CONTINUE TO FOLLOW AND ASSIST NEEDED. Telecommunications Field Engineer: Alton Edgar DCPIA - Discharge Planning Initial Assessment Updated by [email or web address]: Alton Edgar on 10/31/19 12:21 pm * Is the patient Alert and Oriented? Yes * How many steps to enter\exit or inside your home? NONE * PCP DR. VORA * Pharmacy [facility] * Preadmission Environment Acute Inpatient Rehab * Facility Name [facility] IN[facility] * ADLs Partial Dependent * Partial ADLs (Assistance needed) Ambulation Bathing Medication Management Transfers * Equipment Rolling Walker Wheelchair * Other Equipment NO MEDICAL EQUIPMENT PROVIDER PREFERENCE * List name and contact numbers for known caregivers / representatives who currently or will assist patient after discharge: TORI MERCER, SON, * Verbal permission to speak to the caregivers and representatives has been obtained from the patient. N/A * Community resources currently utilized None * Please name any agencies selected above. NONE * Additional services required to return to the preadmission environment? No * Can the patient safely return to the preadmission environment? Yes * Has this patient been hospitalized within the prior 30 days at any hospital? Yes Coverage Notice Reviewer: [email or web address] Martir Edgar Notice Issued Date-Time: 10/31/2019 10:45 Notice Type: Patient Choice Letter Notice Delivered To: Family Member Relationship to Patient: Son Geophysicist Name: TORI MERCER Delivery Method: PHONE - Phone Babs Days: Prior Verbal Notification: Recipient Understood Notice: Yes Recipient Signature: Med Rec Note Co-signed by Attending: Coverage Notice Comment: [facility] Reviewer: [email or web address] Martir Edgar Notice Issued Date-Time: 11/01/2019 16:00 Notice Type: IM Discharge Notice Notice Delivered To: Patient Relationship to Patient: Geophysicist Name: Delivery Method: HAND - Hand Delivered Babs Days: Prior Verbal Notification: Recipient Understood Notice: Yes Recipient Signature: Med Rec Note Co-signed by Attending: Coverage Notice Comment: Last DP export: 11/01/19 3:14 pm Patient Name: ERASMO CUNNINGHAM Page 40245 at 1621 All edits/amendments must be made on the electronic document DICTATION DATE: 11/01/191619 SCHOOL STANDARDS COACH: REJI 11/01/19 162 RPT#: [id number] DC DATE: STATUS: ADM IN [facility] [address] [place] [address] END OF REPORT
--- NOTE | 2019-11-01 17:02 | NUR ---
SPOKE WITH PT'S SON TORI AND NOTIFIED HIM PT WILL NOT BE GOING TO REHAB TODAY BUT WILL POSSIBLY GOING [facility].
--- NOTE | 2019-11-01 19:30 | NUR ---
PT IN BED, AAO X 3, RESP EVEN AND UNLABORED. NO DISTRESS NOTED, CL IN REACH, SR UP X 2. NO CONCERNS OR WANTS NOTED AT THIS TIME.
[2019-11-01 20:00] VITALS: BP 137/72
[2019-11-02] VITALS: BP 119/68
--- NOTE | 2019-11-02 01:31 | NUR ---
I have reviewed this patient and I concur with the Shift Assessment completed by the Licensed Practical Nurse today this shift.
[2019-11-02 05:10] LABS: BASOPHILS 0.4 % (0-2); EOSINOPHILS 1.9 % (0-7); HEMATOCRIT 29.4 % (36.0-48.0); MCH 27.7 pg (26.0-34.0); MCHC 30.6 g/dL (31.0-37.0); MCV 90.5 fL (80.0-100.0); MEAN PLATELET VOLUME 8.4 fL (7.4-10.4); MONOCYTES 12.3 % (2-11); NEUTROPHILS 47.4 % (40-80); PLATELET COUNT 400 10x3/uL (130-400); RBC 3.25 10x6/uL (4.00-5.40); RDW 15.8 % (11.5-14.5); WBC 8.1 10x3/uL (4.8-10.8)
[2019-11-02 05:37] LABS: ALBUMIN 1.7 g/dL (3.4-5.0); ANION GAP 9.7 mmol/L (8-16); BILIRUBIN - TOTAL 0.43 mg/dL (0.2-1.3); CALCIUM 7.9 mg/dL (8.5-10.1); CARBON DIOXIDE 25.4 mmol/L (21.0-32.0); MAGNESIUM - SERUM 1.5 mg/dL (1.8-2.4); PHOSPHOROUS 2.5 mg/dL (2.5-4.9); POTASSIUM - SERUM 4.1 mmol/L (3.5-5.1); PROTEIN - SERUM 6.2 g/dL (6.4-8.2)
--- NOTE | 2019-11-02 08:10 | NUR ---
PT SITTING U PIN BED ON 1ST STEP OVERLAY MATTRESS. ADDUCTION PILLOW ADJUSTED. PT ADJUSTED IN BED TO COMFORT. DENIES FURTHER NEEDS OR PAIN AT THIS TIME. CALL LIGHT WITHIN REACH. WILL CONTINUE TO MONITOR.
--- NOTE | 2019-11-02 08:35 | MORECARE ---
CASE MANAGEMENT DISCHARGE SUMMARY PATIENT: ERASMO CUNNINGHAM UNIT: [id number] ADM DATE: 10/30/19 AGE: 84 : 35 SEX: F ROOM/BED: D.9947 AUTHOR: JAZLYN,DOC PHYSICIAN: REFERRING PHYSICIAN: SOHEILA SHAH MD DATE OF SERVICE: 11/02/19 Discharge Plan Patient Name: ERASMO CUNNINGHAM [facility] [facility] 1935 Planned Disposition: Inpatient Rehab Anticipated Discharge Date: 11/01/19 Discharge Date: Expected LOS: 2 Initial Reviewer: [id number] Initial Review Date: 10/31/2019 Generated: 11/02/19 9:34 am Comments DCP- Discharge Planning Updated by [id number]: Alton Edgar on 11/01/19 3:[address] Patient Name: ERASMO CUNNINGHAM Encounter No: [id number] : 1935 Primary Insurance: MEDICARE A & B Anticipated DC Date: 11-01-2019 Planned Disposition: Inpatient Rehab External Planned Provider: [facility] REH[facility] DCP follow-up note: CM SPOKE TO JALIL OF INPATIENT REHAB, THEY PLAN TO ACCEPT PT TODAY IF PT IS STABLE FOR REHAB; JALIL ADVISED THEY CAN COMPLETE FLU TREATMENT IN REHAB, HAVE PRIVATE ROOM, 1109, FOR PATIENT. CM NOTIFIED SIMON PEREZ WHO WILL PROVIDE DISCHARGE ORDERS FOR REHAB TODAY. PT NOTIFIED VIA PHONE, IN AGREEMENT WITH DISCHARGE TO INPATIENT REHAB. IMPORTANT MESSAGE FROM MEDICARE PROVIDED VIA PHONE AND PERSONALLY VIA HAND DELIVERY. PT ASKED CM TO CALL HER SON. CM CALLED AND NOTIFIED PT'S SON VIA PHONE, WHO IS ALSO IN AGREEMENT WITH REHAB TODAY. BEDSIDE NURSE NOTIFIED. PT WILL ADMIT TO ROOM 1109 TODAY AT [facility]. CALL REPORT TO INPATIENT REHAB WHEN ORDERS AND DISCHARGE ARE COMPLETE. ERVIN Arellano DCP- Discharge Planning Updated by [id number]: Alton Edgar on 10/31/19 11:[address] Patient Name: ERASMO CUNNINGHAM Admission Status: Elective Accout number: [id number] Admission Date: 10-30-2019 : 1935 Admission Diagnosis: Attending: BALDEMAR BASS Current LOS: 1 Anticipated DC Date: Planned Disposition: Inpatient Rehab Primary Insurance: MEDICARE A & B PLANNED EXTERNAL PROVIDER: [facility] Discharge Planning Comments: CM ATTEPTED TO SPEAK TO PT VIA ROOM PHONE TO DISCUSS DISCHARGE PLANNING AND NEEDS. PT DID NOT ANSWER ROOM PHONE. CM CALLED PT'S SON, TORI MERCER, . PT LIVES AT [facility] AND HAS BEEN IN INPATIENT REHAB AT [place]. THERE WAS SOME DISCUSSION OF OTHER REHAB PLACEMENT WHILE PT WAS IN THE INPATIENT REHAB BUT THEY WOULD PREFER TO RETURN TO INPATIENT REHAB AT [place] IF POSSIBLE ONCE PT IS BETTER. PT HAS ROLLING WALKER AND WHEELCHAIR AT HOME. PT HAD NO OUTSIDE SERVICES ASSISTING IN THE HOME. CM DISCUSSED AVAILABILITY OF HOME HEALTH, REHAB SERVICES AND MEDICAL EQUIPMENT. TORI WOULD LIKE TO SPEAK TO PT TO MAKE SURE THAT HER INPUT IS IN FOR ALL DECISIONS; CHOICE COMPLETED FOR [facility] IN[facility]. PT AND SON WOULD PREFER TO RETURN TO [facility] INPATIENT REHAB WHEN MEDICALLY STABLE. PT WILL NEED THERAPY EVALUATIONS ONCE COVID19 TESTING RESULTS ARE COMPLETED WELL INPATIENT PRESCREENING ORDER. CM TO CONTINUE TO FOLLOW AND ASSIST NEEDED. School Curriculum Developer: Alton Edgar DCPIA - Discharge Planning Initial Assessment Updated by [id number]: Alton Edgar on 10/31/19 12:21 pm * Is the patient Alert and Oriented? Yes * How many steps to enter\exit or inside your home? NONE * PCP DR. VORA * Pharmacy [facility] * Preadmission Environment Acute Inpatient Rehab * Facility Name [facility] * ADLs Partial Dependent * Partial ADLs (Assistance needed) Ambulation Bathing Medication Management Transfers * Equipment Rolling Walker Wheelchair * Other Equipment NO MEDICAL EQUIPMENT PROVIDER PREFERENCE * List name and contact numbers for known caregivers / representatives who currently or will assist patient after discharge: TORI MERCER, SON, * Verbal permission to speak to the caregivers and representatives has been obtained from the patient. N/A * Community resources currently utilized None * Please name any agencies selected above. NONE * Additional services required to return to the preadmission environment? No * Can the patient safely return to the preadmission environment? Yes * Has this patient been hospitalized within the prior 30 days at any hospital? Yes Coverage Notice Reviewer: [id number] - Alton Edgar Notice Issued Date-Time: 10/31/2019 10:45 Notice Type: Patient Choice Letter Notice Delivered To: Family Member Relationship to Patient: Son Pneumatic Jacketer Name: TORI MERCER Delivery Method: PHONE - Phone Basb Days: Prior Verbal Notification: Recipient Understood Notice: Yes Recipient Signature: Med Rec Note Co-signed by Attending: Coverage Notice Comment: [facility] Reviewer: [id number] Martir Edgar Notice Issued Date-Time: 11/01/2019 16:00 Notice Type: IM Discharge Notice Notice Delivered To: Patient Relationship to Patient: Pneumatic Jacketer Name: Delivery Method: HAND - Hand Delivered Babs Days: Prior Verbal Notification: Recipient Understood Notice: Yes Recipient Signature: Med Rec Note Co-signed by Attending: Coverage Notice Comment: Last DP export: 11/01/19 3:21 pm Patient Name: ERASMO CUNNINGHAM Page [phone] at 0835 All edits/amendments must be made on the electronic document DICTATION DATE: 11/02/19833 LITERATURE TEACHER: REJI 11/02/19833 RPT#: [id number] DC DATE: STATUS: ADM IN [facility] [address] [place] [address] END OF REPORT
--- NOTE | 2019-11-02 08:56 | MORECARE ---
CASE MANAGEMENT DISCHARGE SUMMARY PATIENT: ERASMO CUNNINGHAM UNIT: [id number] ADM DATE: 10/30/19 AGE: 84 : 35 SEX: F ROOM/BED: D.9179 AUTHOR: JAZLYN,DOC PHYSICIAN: REFERRING PHYSICIAN: SOHEILA SHAH MD DATE OF SERVICE: 11/02/19 Discharge Plan Patient Name: ERASMO CUNNINGHAM [facility] [facility] 1935 Planned Disposition: Inpatient Rehab Anticipated Discharge Date: 11/01/19 Discharge Date: Expected LOS: 2 Initial Reviewer: [id number] Initial Review Date: 10/31/2019 Generated: 11/02/19 9:55 am Comments DCP- Discharge Planning Updated by [id number]: Alton Wayne on 11/02/19 7:[address] Patient Name: ERASMO CUNNINGHAM Encounter No: [id number] : 1935 Primary Insurance: MEDICARE A & B Anticipated DC Date: 11-01-2019 Planned Disposition: Inpatient Rehab External Planned Provider: [facility] INPATIENT REH[facility] DCP follow-up note: CM SPOKE TO JALIL OF INPATIENT REHAB, THEY PLAN TO ACCEPT PT TODAY IF PT IS STABLE FOR REHAB; JALIL ADVISED THEY CAN COMPLETE FLU TREATMENT IN REHAB, HAVE PRIVATE ROOM, 1109, FOR PATIENT. CM NOTIFIED SIMON PEREZ WHO WILL PROVIDE DISCHARGE ORDERS FOR REHAB TODAY. PT NOTIFIED VIA PHONE, IN AGREEMENT WITH DISCHARGE TO INPATIENT REHAB. IMPORTANT MESSAGE FROM [employer] PROVIDED VIA PHONE AND PERSONALLY VIA HAND DELIVERY. PT ASKED CM TO CALL HER SON. CM CALLED AND NOTIFIED PT'S SON VIA PHONE, WHO IS ALSO IN AGREEMENT WITH REHAB TODAY. BEDSIDE NURSE NOTIFIED. PT WILL ADMIT TO ROOM 1109 TODAY AT [facility] INPATIENT REH[facility]. CALL REPORT TO INPATIENT REHAB WHEN ORDERS AND DISCHARGE ARE COMPLETE. Alton Wayne, CASE MANAGEMENT Appended by Alton Wayne on 11/02/2019 8:54 CDT: LATE ENTRY FROM 11-01-19: CM SPOKE TO DR. ROPER WHO INFORMED CM THAT PT IS NOT STABLE FOR REHAB AT THIS TIME. CM NOTIFIED PATIENT, SIMON PEREZ, BEDSIDE NURSE AND TIMO OF INPATIENT REHAB. CM TO CONTINUE TO FOLLOW AND ASSIST NEEDED. ALTON WAYNE CASWE MANAGEMENT DCP- Discharge Planning Updated by [id number]: Alton Wayne on 10/31/19 11:[address] Patient Name: ERASMO CUNNINGHAM Admission Status: Elective Accout number: [id number] Admission Date: 10-30-2019 : 1935 Admission Diagnosis: Attending: BALDEMAR BASS Current LOS: 1 Anticipated DC Date: Planned Disposition: Inpatient Rehab Primary Insurance: MEDICARE A & B PLANNED EXTERNAL PROVIDER: [facility] INPATIENT REH[facility] Discharge Planning Comments: CM ATTEPTED TO SPEAK TO PT VIA ROOM PHONE TO DISCUSS DISCHARGE PLANNING AND NEEDS. PT DID NOT ANSWER ROOM PHONE. CM CALLED PT'S SON, TORI MERCER, . PT LIVES AT [facility] AND HAS BEEN IN INPATIENT REHAB AT [place]. THERE WAS SOME DISCUSSION OF OTHER REHAB PLACEMENT WHILE PT WAS IN THE INPATIENT REHAB BUT THEY WOULD PREFER TO RETURN TO INPATIENT REHAB AT [place] IF POSSIBLE ONCE PT IS BETTER. PT HAS ROLLING WALKER AND WHEELCHAIR AT HOME. PT HAD NO OUTSIDE SERVICES ASSISTING IN THE HOME. CM DISCUSSED AVAILABILITY OF HOME HEALTH, REHAB SERVICES AND MEDICAL EQUIPMENT. TORI WOULD LIKE TO SPEAK TO PT TO MAKE SURE THAT HER INPUT IS IN FOR ALL DECISIONS; CHOICE COMPLETED FOR [facility] INPATIENT REH[facility]. PT AND SON WOULD PREFER TO RETURN TO [facility] INPATIENT REHAB WHEN MEDICALLY STABLE. PT WILL NEED THERAPY EVALUATIONS ONCE COVID19 TESTING RESULTS ARE COMPLETED WELL INPATIENT PRESCREENING ORDER. CM TO CONTINUE TO FOLLOW AND ASSIST NEEDED. Reinsurance Clerk: Alton Wayne DCPIA - Discharge Planning Initial Assessment Updated by [id number]: Alton Wayne on 10/31/19 12:21 pm * Is the patient Alert and Oriented? Yes * How many steps to enter\exit or inside your home? NONE * PCP DR. VORA * Pharmacy [facility] * Preadmission Environment Acute Inpatient Rehab * Facility Name [facility] INPAT[facility] * ADLs Partial Dependent * Partial ADLs (Assistance needed) Ambulation Bathing Medication Management Transfers * Equipment Rolling Walker Wheelchair * Other Equipment NO MEDICAL EQUIPMENT PROVIDER PREFERENCE * List name and contact numbers for known caregivers / representatives who currently or will assist patient after discharge: TORI MERCER, SON, * Verbal permission to speak to the caregivers and representatives has been obtained from the patient. N/A * Community resources currently utilized None * Please name any agencies selected above. NONE * Additional services required to return to the preadmission environment? No * Can the patient safely return to the preadmission environment? Yes * Has this patient been hospitalized within the prior 30 days at any hospital? Yes Coverage Notice Reviewer: [id number] Martir Wayne Notice Issued Date-Time: 10/31/2019 10:45 Notice Type: Patient Choice Letter Notice Delivered To: Family Member Relationship to Patient: Son Cognos Name: TORI MERCER Delivery Method: PHONE - Phone Babs Days: Prior Verbal Notification: Recipient Understood Notice: Yes Recipient Signature: Med Rec Note Co-signed by Attending: Coverage Notice Comment: [facility] INPAT[facility] Reviewer: [id number] Martir Wayne Notice Issued Date-Time: 11/01/2019 16:00 Notice Type: IM Discharge Notice Notice Delivered To: Patient Relationship to Patient: Cognos Name: Delivery Method: HAND - Hand Delivered Babs Days: Prior Verbal Notification: Recipient Understood Notice: Yes Recipient Signature: Med Rec Note Co-signed by Attending: Coverage Notice Comment: Last DP export: 11/02/19 7:35 am Patient Name: ERASMO CUNNINGHAM Page 15054 at 0856 All edits/amendments must be made on the electronic document DICTATION DATE: 11/02/19854 SUPERVISOR CARDING: REJI 11/02/19854 RPT#: [id number] DC DATE: STATUS: ADM IN [facility] [address] [place] [address] END OF REPORT
[2019-11-02 09:59] VITALS: BP 148/86
--- NOTE | 2019-11-02 11:43 | NUR ---
OT NOTE: PT PERFORMED BED MOB WITH MOD ASSIST; STATIC SITTING ON EOB WITH SBA FOR APPROX 7 MIN; SIT TO STAND WITH MIN/MOD ASSIST; ABLE TO TAKE A FEW SIDE STEPS WITH MIN/MOD ASSIST; ABLE TO PERFORM SIMPLE GROOMING TASKS WITH MIN ASSIST; MAX ASSIST WITH TOILETING AND LE DRSG; BACK TO BED WITH MOD ASSIST; ATTEMTS TO ASSIST WITH REPOSITIONING TODAY. PT MORE ALERT THAN YESTERDAY. RECOMMEND IP REHAB. NICOLE BARAJAS, OTR/L [phone]
[2019-11-02 12:00] VITALS: BP 130/68
--- NOTE | 2019-11-02 13:11 | NUR ---
I have reviewed this patient and I concur with the Shift Assessment completed by the Licensed Practical Nurse today this shift.
--- NOTE | 2019-11-02 14:57 | NUR ---
OT NOTE: PT COMPLETED BED MOB TASKS WITH SBA/CGA. PT COMPLETED FACE WASH WITH SET UP. PT COMPLETED BUE AROM EXS. [id number] CORNELIUS RUDOLPH COTA
[2019-11-02 16:00] VITALS: BP 146/74
--- NOTE | 2019-11-02 19:24 | NUR ---
REPORT RECEIVED, WILL CONTINUE POC. PATIENT IS RESTING WITH EYES CLOSED, NO S/S OF DISTRESS OBSERVED, RR EVEN AND UNLABORED ON 3L O2 VIA NC. PUREWICK IN PLACE, SUCTIONING APPROPRIATELY. PIV TO RT FA, PATENT, INFUSING NS @ 15ML/HR. NO NEEDS EXPRESSED AT THIS TIME. CL IN REACH, BED LOCKED AND LOWERED. WILL CTM.
[2019-11-02 20:00] VITALS: BP 107/63
[2019-11-03] VITALS: BP 107/60
[2019-11-03 04:00] VITALS: BP 109/69
--- NOTE | 2019-11-03 04:01 | NUR ---
I have reviewed this patient and I concur with the Shift Assessment completed by the Licensed Practical Nurse today this shift.
[2019-11-03 05:07] LABS: ALBUMIN 1.7 g/dL (3.4-5.0); ANION GAP 11.3 mmol/L (8-16); BILIRUBIN - TOTAL 0.45 mg/dL (0.2-1.3); CALCIUM 8.3 mg/dL (8.5-10.1); CARBON DIOXIDE 25.8 mmol/L (21.0-32.0); CREATININE - SERUM 1.1 mg/dL (0.6-1.3); MAGNESIUM - SERUM 1.6 mg/dL (1.8-2.4); PHOSPHOROUS 2.8 mg/dL (2.5-4.9); POTASSIUM - SERUM 4.1 mmol/L (3.5-5.1); PROTEIN - SERUM 6.2 g/dL (6.4-8.2)
[2019-11-03 05:40] LABS: BASOPHILS 0.5 % (0-2); EOSINOPHILS 1.6 % (0-7); HEMATOCRIT 29.5 % (36.0-48.0); HEMOGLOBIN 9.1 g/dL (12-16); IMMATURE GRANULOCYTES 4.6 % (0-5); MCH 27.9 pg (26.0-34.0); MCHC 30.8 g/dL (31.0-37.0); MCV 90.5 fL (80.0-100.0); MEAN PLATELET VOLUME 8.8 fL (7.4-10.4); MONOCYTES 10.4 % (2-11); NEUTROPHILS 48.9 % (40-80); PLATELET COUNT 460 10x3/uL (130-400); RBC 3.26 10x6/uL (4.00-5.40); RDW 15.9 % (11.5-14.5); WBC 8.3 10x3/uL (4.8-10.8)
--- NOTE | 2019-11-03 06:25 | NUR ---
ADMINISTERED AM MEDS. MAG 1.6 THIS AM. COVERED PER ELECTROLYTE PROTOCOL.
[2019-11-03 09:00] VITALS: BP 139/89
[2019-11-03 11:43] VITALS: BP 151/84
--- NOTE | 2019-11-03 13:27 | NUR ---
OT NOTE: PT COMPLETED BUE AROM EXS SUPINE IN BED. PT COMPLETED BED MOB TASKS WITH MOD A. PT COMPLETED FACE AND HAND HYGIENE WITH SET UP. PT COMPLETED HAIR GROOMING WITH SET UP. [id number] THANK YOU,ISABEL PETERS
--- NOTE | 2019-11-03 13:38 | NUR ---
I have reviewed this patient and I concur with the Shift Assessment completed by the Licensed Practical Nurse today this shift.
--- NOTE | 2019-11-03 13:54 | NUR ---
Nutrition Follow-up: Good/fair PO intake. Noted KUB showed constipation. Diet: Regular, Ensure TID PO intake: 50-100% No new wt: last wt: 108# (10/30) Last BM: 10/31 per chart Labs noted: Na 133, Glu 128, Ca 8.3, Mg 1.6, Alb 1.7 Meds noted: Senokot, Protonix, KDur, Bumex, MagOx, NS @ 75 -Encourage PO intake and honor food preferences. -Monitor wt; noted daily wts ordered. -RD following.
--- NOTE | 2019-11-03 16:00 | NUR ---
PURE WICK CHANGED.
--- NOTE | 2019-11-03 19:10 | NUR ---
BEDSIDE REPORT RECEIVED, PT CARE ASSUMED. INTRODUCED SELF AND WROTE NAME ON BOARD. PT SITTING UP IN BED WATCHING TV, AAOX4. DENIES ANY NEEDS AT THIS TIME. BED IN LOWEST POSITION, SR X2, CALL LIGHT WITHIN REACH. WILL CONTINUE TO MONITOR.
[2019-11-03 20:30] VITALS: BP 133/74
[2019-11-04] VITALS: BP 129/88
[2019-11-04 04:36] LABS: BASOPHILS 0.8 % (0-2); EOSINOPHILS 2.2 % (0-7); HEMATOCRIT 31.2 % (36.0-48.0); HEMOGLOBIN 9.7 g/dL (12-16); LYMPHOCYTES 28.8 % (15-50); MCH 28.3 pg (26.0-34.0); MCHC 31.1 g/dL (31.0-37.0); MEAN PLATELET VOLUME 8.6 fL (7.4-10.4); MONOCYTES 10.2 % (2-11); PLATELET COUNT 419 10x3/uL (130-400); RBC 3.43 10x6/uL (4.00-5.40); RDW 15.9 % (11.5-14.5); WBC 8.6 10x3/uL (4.8-10.8)
[2019-11-04 04:58] LABS: ALBUMIN 1.8 g/dL (3.4-5.0); ANION GAP 9.1 mmol/L (8-16); BILIRUBIN - TOTAL 0.41 mg/dL (0.2-1.3); CALCIUM 8.5 mg/dL (8.5-10.1); CARBON DIOXIDE 26.2 mmol/L (21.0-32.0); CREATININE - SERUM 1.1 mg/dL (0.6-1.3); MAGNESIUM - SERUM 1.8 mg/dL (1.8-2.4); PHOSPHOROUS 3.1 mg/dL (2.5-4.9); POTASSIUM - SERUM 4.3 mmol/L (3.5-5.1)
--- NOTE | 2019-11-04 07:15 | NUR ---
PT AWAKE AND ORIENTED WHEN I ENTERED ROOM. NO COMPLAINTS OR CONCERNS AT THIS TIME. CL IN REACH, SRX2.
[2019-11-04 10:46] VITALS: BP 140/79
--- NOTE | 2019-11-04 12:22 | NUR ---
ASSITED PHYSICAL THERAPY, CHANGED ADRIANO AND ELIZABETH. COMPLAINTS OF SEVERE BACK PAIN AND LEG PAIN, ADMINISTERED PAIN MEDS PER MD ORDER. NO OTHER CONCERNS AT THIS TIME. CL INR EACH, SRX2.
[2019-11-04 16:37] VITALS: BP 129/63
[2019-11-04 22:01] VITALS: BP 129/67
[2019-11-05 04:54] LABS: BASOPHILS 0.4 % (0-2); EOSINOPHILS 1.5 % (0-7); HEMATOCRIT 28.2 % (36.0-48.0); HEMOGLOBIN 8.9 g/dL (12-16); IMMATURE GRANULOCYTES 4.7 % (0-5); LYMPHOCYTES 20.6 % (15-50); MCH 28.4 pg (26.0-34.0); MCHC 31.6 g/dL (31.0-37.0); MCV 90.1 fL (80.0-100.0); MEAN PLATELET VOLUME 8.4 fL (7.4-10.4); MONOCYTES 10.8 % (2-11); PLATELET COUNT 419 10x3/uL (130-400); RBC 3.13 10x6/uL (4.00-5.40); RDW 15.7 % (11.5-14.5)
[2019-11-05 05:08] LABS: ANION GAP 11.1 mmol/L (8-16); CALCIUM 8.1 mg/dL (8.5-10.1); CARBON DIOXIDE 24.2 mmol/L (21.0-32.0); POTASSIUM - SERUM 4.3 mmol/L (3.5-5.1)
[2019-11-05 05:11] LABS: WBC 11.5 10x3/uL (4.8-10.8)
--- NOTE | 2019-11-05 17:16 | NUR ---
I have reviewed this patient and I concur with the Shift Assessment completed by the Licensed Practical Nurse today this shift.
--- NOTE | 2019-11-05 19:10 | NUR ---
BEDSIDE REPORT RECEIVED, PT CARE ASSUMED. WROTE NAME ON BOARD. PT SITTING UP IN BED, WATCHING TV, AAOX4. DENIES ANY NEEDS AT THIS TIME. BED IN LOWEST POSITION, SR X3, CALL LIGHT WITHIN REACH. WILL CONTINUE TO MONITOR.
[2019-11-05 20:00] VITALS: BP 109/63
[2019-11-06 05:05] LABS: BASOPHILS 0.5 % (0-2); EOSINOPHILS 2.3 % (0-7); HEMATOCRIT 26.3 % (36.0-48.0); HEMOGLOBIN 8.2 g/dL (12-16); IMMATURE GRANULOCYTES 5.2 % (0-5); LYMPHOCYTES 25.9 % (15-50); MCH 28.1 pg (26.0-34.0); MCHC 31.2 g/dL (31.0-37.0); MCV 90.1 fL (80.0-100.0); MEAN PLATELET VOLUME 8.6 fL (7.4-10.4); NEUTROPHILS 55.1 % (40-80); PLATELET COUNT 425 10x3/uL (130-400); RBC 2.92 10x6/uL (4.00-5.40); RDW 15.7 % (11.5-14.5); WBC 9.7 10x3/uL (4.8-10.8)
[2019-11-06 05:33] LABS: ANION GAP 10.9 mmol/L (8-16); CARBON DIOXIDE 24.7 mmol/L (21.0-32.0); POTASSIUM - SERUM 4.6 mmol/L (3.5-5.1)
[2019-11-06 05:42] LABS: CREATININE - SERUM 1.3 mg/dL (0.6-1.3)
[2019-11-06 07:59] VITALS: BP 119/65
[2019-11-06] MEDS ORDERED: VANCOMYCIN 750750 MG IV (12:59)
[2019-11-06] MEDS ORDERED: MAXIPIME 2 GM/D52 G1 IV (12:59)
--- NOTE | 2019-11-06 15:43 | MORECARE ---
CASE MANAGEMENT DISCHARGE SUMMARY PATIENT: ERASMO CUNNINGHAM UNIT: [id number] ADM DATE: 10/30/19 AGE: 84 : 35 SEX: F ROOM/BED: D.7711 AUTHOR: JAZLYN,DOC PHYSICIAN: REFERRING PHYSICIAN: SOHEILA SHAH MD DATE OF SERVICE: 11/06/19 Discharge Plan Patient Name: ERASMO CUNNINGHAM [facility] [facility] 1935 Planned Disposition: Inpatient Rehab Anticipated Discharge Date: 11/06/19 Discharge Date: Expected LOS: 7 Initial Reviewer: [id number] Initial Review Date: 10/31/2019 Generated: 11/06/19 4:43 pm DCP- Discharge Planning Updated by [id number]: Alton Wayne on 11/02/19 7:[address] Patient Name: ERASMO CUNNINGHAM Encounter No: [id number] : 1935 Primary Insurance: MEDICARE A & B Anticipated DC Date: 11-01-2019 Planned Disposition: Inpatient Rehab External Planned Provider: [facility] INPATIENT REH[facility] DCP follow-up note: CM SPOKE TO JALIL OF INPATIENT REHAB, THEY PLAN TO ACCEPT PT TODAY IF PT IS STABLE FOR REHAB; JALIL ADVISED THEY CAN COMPLETE FLU TREATMENT IN REHAB, HAVE PRIVATE ROOM, 1109, FOR PATIENT. CM NOTIFIED SIMON PEREZ WHO WILL PROVIDE DISCHARGE ORDERS FOR REHAB TODAY. PT NOTIFIED VIA PHONE, IN AGREEMENT WITH DISCHARGE TO INPATIENT REHAB. IMPORTANT MESSAGE FROM [employer] PROVIDED VIA PHONE AND PERSONALLY VIA HAND DELIVERY. PT ASKED CM TO CALL HER SON. CM CALLED AND NOTIFIED PT'S SON VIA PHONE, WHO IS ALSO IN AGREEMENT WITH REHAB TODAY. BEDSIDE NURSE NOTIFIED. PT WILL ADMIT TO ROOM 1109 TODAY AT [facility] INPATIENT REHAB. CALL REPORT TO INPATIENT REHAB WHEN ORDERS AND DISCHARGE ARE COMPLETE. Alton Wayne, CASE MANAGEMENT Appended by Alton Wayne on 11/02/2019 8:54 CDT: LATE ENTRY FROM 11-01-19: CM SPOKE TO DR. ROPER WHO INFORMED CM THAT PT IS NOT STABLE FOR REHAB AT THIS TIME. CM NOTIFIED PATIENT, SIMON PEREZ, BEDSIDE NURSE AND TIMO OF INPATIENT REHAB. CM TO CONTINUE TO FOLLOW AND ASSIST NEEDED. ALTON WAYNE CASWE MANAGEMENT DCP- Discharge Planning Updated by [id number]: Alton Wayne on 10/31/19 11:[address] Patient Name: ERASMO CUNNINGHAM Admission Status: Elective Accout number: [id number] Admission Date: 10-30-2019 : 1935 Admission Diagnosis: Attending: BALDEMAR BASS Current LOS: 1 Anticipated DC Date: Planned Disposition: Inpatient Rehab Primary Insurance: MEDICARE A & B PLANNED EXTERNAL PROVIDER: [facility] INPATIENT RE[facility] Discharge Planning Comments: CM ATTEPTED TO SPEAK TO PT VIA ROOM PHONE TO DISCUSS DISCHARGE PLANNING AND NEEDS. PT DID NOT ANSWER ROOM PHONE. CM CALLED PT'S SON, TORI MERCER, . PT LIVES AT [facility] AND HAS BEEN IN INPATIENT REHAB AT [place]. THERE WAS SOME DISCUSSION OF OTHER REHAB PLACEMENT WHILE PT WAS IN THE INPATIENT REHAB BUT THEY WOULD PREFER TO RETURN TO INPATIENT REHAB AT [place] IF POSSIBLE ONCE PT IS BETTER. PT HAS ROLLING WALKER AND WHEELCHAIR AT HOME. PT HAD NO OUTSIDE SERVICES ASSISTING IN THE HOME. CM DISCUSSED AVAILABILITY OF HOME HEALTH, REHAB SERVICES AND MEDICAL EQUIPMENT. TORI WOULD LIKE TO SPEAK TO PT TO MAKE SURE THAT HER INPUT IS IN FOR ALL DECISIONS; CHOICE COMPLETED FOR [facility] INPATIENT RE[facility]. PT AND SON WOULD PREFER TO RETURN TO [facility] INPATIENT REHAB WHEN MEDICALLY STABLE. PT WILL NEED THERAPY EVALUATIONS ONCE COVID19 TESTING RESULTS ARE COMPLETED WELL INPATIENT PRESCREENING ORDER. CM TO CONTINUE TO FOLLOW AND ASSIST NEEDED. Director Of Online Education: Alton Wayne DCPIA - Discharge Planning Initial Assessment Updated by [id number]: Alton Wayne on 10/31/19 12:21 pm * Is the patient Alert and Oriented? Yes * How many steps to enter\exit or inside your home? NONE * PCP DR. VORA * Pharmacy [facility] * Preadmission Environment Acute Inpatient Rehab * Facility Name [facility] * ADLs Partial Dependent * Partial ADLs (Assistance needed) Ambulation Bathing Medication Management Transfers * Equipment Rolling Walker Wheelchair * Other Equipment NO MEDICAL EQUIPMENT PROVIDER PREFERENCE * List name and contact numbers for known caregivers / representatives who currently or will assist patient after discharge: TORI MERCER, SON, * Verbal permission to speak to the caregivers and representatives has been obtained from the patient. N/A * Community resources currently utilized None * Please name any agencies selected above. NONE * Additional services required to return to the preadmission environment? No * Can the patient safely return to the preadmission environment? Yes * Has this patient been hospitalized within the prior 30 days at any hospital? Yes Coverage Notice Reviewer: [id number] Martir Wayne Notice Issued Date-Time: 10/31/2019 10:45 Notice Type: Patient Choice Letter Notice Delivered To: Family Member Relationship to Patient: Son Piano Teacher Name: TORI MERCER Delivery Method: PHONE - Phone Babs Days: Prior Verbal Notification: Recipient Understood Notice: Yes Recipient Signature: Med Rec Note Co-signed by Attending: Coverage Notice Comment: [facility] Reviewer: [id number] Martir Wayne Notice Issued Date-Time: 11/01/2019 16:00 Notice Type: IM Discharge Notice Notice Delivered To: Patient Relationship to Patient: Piano Teacher Name: Delivery Method: HAND - Hand Delivered Babs Days: Prior Verbal Notification: Recipient Understood Notice: Yes Recipient Signature: Med Rec Note Co-signed by Attending: Coverage Notice Comment: Last DP export: 11/02/19 7:56 am Patient Name: ERASMO CUNNINGHAM Page 55445 at 1543 All edits/amendments must be made on the electronic document DICTATION DATE: 11/06/19 1543 ADMINISTRATIVE SUPPORT CLERK: REJI 11/06/19 1543 RPT#: [id number] DC DATE: STATUS: ADM IN [facility] [address] [place] [address] END OF REPORT
--- NOTE | 2019-11-06 15:51 | MORECARE ---
CASE MANAGEMENT DISCHARGE SUMMARY PATIENT: ERASMO CUNNINGHAM UNIT: [id number] ADM DATE: 10/30/19 AGE: 84 : 35 SEX: F ROOM/BED: D[facility] AUTHOR: JAZLYN,DOC PHYSICIAN: REFERRING PHYSICIAN: SOHEILA SHAH MD DATE OF SERVICE: 11/06/19 Discharge Plan Patient Name: ERASMO CUNNINGHAM Facility: [facility] : 1935 Planned Disposition: Inpatient Rehab Anticipated Discharge Date: 11/06/19 Discharge Date: Expected LOS: 7 Initial Reviewer: [id number] Initial Review Date: 10/31/2019 Generated: 11/06/19 4:50 pm Comments DCP- Discharge Planning Updated by [id number]: Alton Wayne on 11/06/19 2:[address] Patient Name: ERASMO CUNNINGHAM Encounter No: [id number] : 1935 Primary Insurance: MEDICARE A & B Anticipated DC Date: 11-06-2019 Planned Disposition: Inpatient Rehab External Planned Provider: [facility] DCP follow-up note: CM RECEIVED DISCHARGE ORDERS, SPOKE TO PT IN ROOM WHO IS IN AGREEMENT WITH DISCHARGE TO REHAB TODAY. CM PROVIDED AND EXPLAINED IMPORTANT MESSAGE FROM MEDICARE. CM CALLED PT'S SON, TORI MERCER, , WHO IS IN AGREEMENT WITH DISCHARGE TO INPATIENT REHAB TODAY; TORI REPORTS FRUSTRATION THAT PT'S DENTURES WERE LOST IN REHAB THE LAST STAY AND NURSE ENTRY LEVEL MECHANICAL ENGINEER TIMO HAS NOT RETURNED HIS PHONE MESSAGES SINCE INITIAL CONTACT WITH HER. CM NOTIFED JALIL OF INPATIENT REHAB. CM RECEIVED CALL FROM JALIL OF INPATIENT REHAB, THEY ARE READY FOR REPORT AND WILL GIVE NURSE ROOM NUMBER WHEN REPORT IS CALLED. CM SPOKE TO BEDSIDE NURSE WHO HAS CALLED REPORT AND HAS ROOM NUMBER. REHAB TO CALL BEDSIDE NURSE WHEN READY TO ACCEPT PT IN REHAB TODAY. ERVIN Arellano DCP- Discharge Planning Updated by [id number]: Alton Wayne on 11/02/19 7:[address] Patient Name: ERASMO CUNNINGHAM Encounter No: [id number] : 1935 Primary Insurance: MEDICARE A & B Anticipated DC Date: 11-01-2019 Planned Disposition: Inpatient Rehab External Planned Provider: [facility] DCP follow-up note: CM SPOKE TO JALIL OF INPATIENT REHAB, THEY PLAN TO ACCEPT PT TODAY IF PT IS STABLE FOR REHAB; JALIL ADVISED THEY CAN COMPLETE FLU TREATMENT IN REHAB, HAVE PRIVATE ROOM, 1109, FOR PATIENT. CM NOTIFIED SIMON PEREZ WHO WILL PROVIDE DISCHARGE ORDERS FOR REHAB TODAY. PT NOTIFIED VIA PHONE, IN AGREEMENT WITH DISCHARGE TO INPATIENT REHAB. IMPORTANT MESSAGE FROM MEDICARE PROVIDED VIA PHONE AND PERSONALLY VIA HAND DELIVERY. PT ASKED CM TO CALL HER SON. CM CALLED AND NOTIFIED PT'S SON VIA PHONE, WHO IS ALSO IN AGREEMENT WITH REHAB TODAY. BEDSIDE NURSE NOTIFIED. PT WILL ADMIT TO ROOM 1109 TODAY AT [facility] INPATIENT [facility]. CALL REPORT TO INPATIENT REHAB WHEN ORDERS AND DISCHARGE ARE COMPLETE. Alton Wayne, CASE MANAGEMENT Appended by Alton Wayne on 11/02/2019 8:54 CDT: LATE ENTRY FROM 11-01-19: CM SPOKE TO DR. ROPER WHO INFORMED CM THAT PT IS NOT STABLE FOR REHAB AT THIS TIME. CM NOTIFIED PATIENT, SIMON PEREZ, BEDSIDE NURSE AND TIMO OF INPATIENT REHAB. CM TO CONTINUE TO FOLLOW AND ASSIST NEEDED. ALTON WAYNECASWE MANAGEMENT DCP- Discharge Planning Updated by [id number]: Alton Wayne on 10/31/19 11:[address] Patient Name: ERASMO CUNNINGHAM Admission Status: Elective Accout number: [id number] Admission Date: 10-30-2019 : 1935 Admission Diagnosis: Attending: BALDEMAR BASS Current LOS: 1 Anticipated DC Date: Planned Disposition: Inpatient Rehab Primary Insurance: MEDICARE A & B PLANNED EXTERNAL PROVIDER: [facility] Discharge Planning Comments: CM ATTEPTED TO SPEAK TO PT VIA ROOM PHONE TO DISCUSS DISCHARGE PLANNING AND NEEDS. PT DID NOT ANSWER ROOM PHONE. CM CALLED PT'S SON, TORI MERCER, . PT LIVES AT [facility] AND HAS BEEN IN INPATIENT REHAB AT [place]. THERE WAS SOME DISCUSSION OF OTHER REHAB PLACEMENT WHILE PT WAS IN THE INPATIENT REHAB BUT THEY WOULD PREFER TO RETURN TO INPATIENT REHAB AT [place] IF POSSIBLE ONCE PT IS BETTER. PT HAS ROLLING WALKER AND WHEELCHAIR AT HOME. PT HAD NO OUTSIDE SERVICES ASSISTING IN THE HOME. CM DISCUSSED AVAILABILITY OF HOME HEALTH, REHAB SERVICES AND MEDICAL EQUIPMENT. TORI WOULD LIKE TO SPEAK TO PT TO MAKE SURE THAT HER INPUT IS IN FOR ALL DECISIONS; CHOICE COMPLETED FOR [facility] INPAT[facility]. PT AND SON WOULD PREFER TO RETURN TO [facility] INPATIENT REHAB WHEN MEDICALLY STABLE. PT WILL NEED THERAPY EVALUATIONS ONCE COVID19 TESTING RESULTS ARE COMPLETED WELL INPATIENT PRESCREENING ORDER. CM TO CONTINUE TO FOLLOW AND ASSIST NEEDED. Chief Technician X Ray: Alton Wayne DCPIA - Discharge Planning Initial Assessment Updated by [id number]: Alton Wayne on 10/31/19 12:21 pm * Is the patient Alert and Oriented? Yes * How many steps to enter\exit or inside your home? NONE * PCP DR. VORA * Pharmacy [facility] * Preadmission Environment Acute Inpatient Rehab * Facility Name [facility] * ADLs Partial Dependent * Partial ADLs (Assistance needed) Ambulation Bathing Medication Management Transfers * Equipment Rolling Walker Wheelchair * Other Equipment NO MEDICAL EQUIPMENT PROVIDER PREFERENCE * List name and contact numbers for known caregivers / representatives who currently or will assist patient after discharge: TORI MERCER, SON, * Verbal permission to speak to the caregivers and representatives has been obtained from the patient. N/A * Community resources currently utilized None * Please name any agencies selected above. NONE * Additional services required to return to the preadmission environment? No * Can the patient safely return to the preadmission environment? Yes * Has this patient been hospitalized within the prior 30 days at any hospital? Yes Coverage Notice Reviewer: [email or web address] Martir Wayne Notice Issued Date-Time: 10/31/2019 10:45 Notice Type: Patient Choice Letter Notice Delivered To: Family Member Relationship to Patient: Son Workers Compensation Examiner Name: TORI MERCER Delivery Method: PHONE - Phone Babs Days: Prior Verbal Notification: Recipient Understood Notice: Yes Recipient Signature: Med Rec Note Co-signed by Attending: Coverage Notice Comment: [facility] Reviewer: [id number] Martir Wayne Notice Issued Date-Time: 11/01/2019 16:00 Notice Type: IM Discharge Notice Notice Delivered To: Patient Relationship to Patient: Workers Compensation Examiner Name: Delivery Method: HAND - Hand Delivered Babs Days: Prior Verbal Notification: Recipient Understood Notice: Yes Recipient Signature: Med Rec Note Co-signed by Attending: Coverage Notice Comment: Last DP export: 11/06/19 2:44 pm Patient Name: ERASMO CUNNINGHAM Page [id number] at 1551 All edits/amendments must be made on the electronic document DICTATION DATE: 11/06/191549 CAD DRAFTSMAN: REJI 11/06/191549 RPT#: [id number] DC DATE: STATUS: ADM IN [facility] [address] [place] [address] END OF REPORT
--- NOTE | 2019-11-06 16:40 | NUR ---
ALERT AND ORIENTED X4. SITTING UP IN BED. REPORT CALLED TO ELIZABETH BERGER ON REHAB. PLAN TO TRANSFER TO 1113B AFTER 1800 PER ELIZABETH BERGER. CONTINUE PLAN OF CARE AND SAFETY PRECAUTIONS.
--- NOTE | 2019-11-06 17:53 | NUR ---
TRANSFER TO REHAB 1112B.
--- NOTE | 2019-11-07 15:29 | NUR ---
OT NOTE: (DOS 11/06/2019) PT COMPLETED HAND AND FACE HYGIENE WITH SET UP. PT COMPLETED BUE AROM EXS FOR INCREASED AX TOLERANCE. [id number] THANK YOU,ISABEL PETERS
== END 2019-11-06 17:54 | DRG 193 ==
LOC: D.M2 16:10
PROVIDERS: Family Medicine; Legal Medicine; ADMIT Emergency Medicine; ATTEND Emergency Medicine
DX: J18.9 Pneumonia, unspecified organism (principal); I26.99 Other pulmonary embolism without acute cor pulmonale; I50.33 Acute on chronic diastolic (congestive) heart failure; G93.41 Metabolic encephalopathy; J96.01 Acute respiratory failure with hypoxia; I82.411 Acute embolism and thrombosis of right femoral vein; E87.1 Hypo-osmolality and hyponatremia; J98.11 Atelectasis; N39.0 Urinary tract infection, site not specified; N17.9 Acute kidney failure, unspecified; J11.1 Influenza due to unidentified influenza virus with other respiratory manifestations; D64.9 Anemia, unspecified; I25.10 Atherosclerotic heart disease of native coronary artery without angina pectoris; I48.91 Unspecified atrial fibrillation; E03.9 Hypothyroidism, unspecified; E78.5 Hyperlipidemia, unspecified; F03.90 Unspecified dementia, unspecified severity, without behavioral disturbance, psychotic disturbance, mood disturbance, and anxiety; I27.20 Pulmonary hypertension, unspecified; I11.0 Hypertensive heart disease with heart failure; I08.1 Rheumatic disorders of both mitral and tricuspid valves; Z20.828 Contact with and (suspected) exposure to other viral communicable diseases; D72.829 Elevated white blood cell count, unspecified; K59.00 Constipation, unspecified; R53.81 Other malaise

== ENCOUNTER 2019-11-06 18:14 | Inpatient (IN) | payer MEDICARE, OTHER ==
[~2019-11-06] VITALS: Ht 162.6 cm; Wt 49.0 kg
[~2019-11-06 18:14] MED LIST changes: +MAXIPIME 2 GM/D52 G1 IV; +TAMIFLU75 MG PO; +VANCOMYCIN 750750 MG IV; +Vibramycin 100 MG/D5 IV
--- NOTE | 2019-11-06 20:00 | NUR ---
PT IS RESTING IN BED WITH EYES OPEN. ALERT AND ORIENTED X 3. PT STATES SHE IS GETTING MUCH BETTER, BUT IS VERY WEAK IN HER LEGS. PT ASSISTED TO A BEDPAN. VOIDED 200CC. CLEAR YELLOW URINE. ADMISSION TO REHAB IS IN PROGRESS. CALMOSEPTINE APPLIED TO STAGE TWO ULCER ON COCCYX. JESSICA. FEET ARE ELEVATED UP ON PILLOWS TO PROMOTE REDUCTION OF 1+ EDEMA. SR'S ARE UP X 2 IN BED. CALL LIGHT AND BEDSIDE TABLE ARE WITHIN EASY REACH.
--- NOTE | 2019-11-06 22:40 | NUR ---
INC. CARE GIVEN FOR INC. OF URINE, THEN DONE IMMEDIATELY AGAIN WHEN PT VOIDED AGAIN. NO FURTHER NEEDS VOICED.
[2019-11-07 00:05] VITALS: BP 118/59; BMI 18.5
--- NOTE | 2019-11-07 05:40 | NUR ---
PT ASSITED TO USE THE BEDPAN. NO FURTHER NEEDS VOICED.
[2019-11-07 06:05] LABS: BASOPHILS 0.4 % (0-2); EOSINOPHILS 1.9 % (0-7); HEMATOCRIT 28.4 % (36.0-48.0); IMMATURE GRANULOCYTES 3.7 % (0-5); MCHC 31.7 g/dL (31.0-37.0); MCV 88.5 fL (80.0-100.0); MEAN PLATELET VOLUME 8.6 fL (7.4-10.4); MONOCYTES 10.5 % (2-11); NEUTROPHILS 56.5 % (40-80); PLATELET COUNT 479 10x3/uL (130-400); RBC 3.21 10x6/uL (4.00-5.40); RDW 15.3 % (11.5-14.5); WBC 10.8 10x3/uL (4.8-10.8)
[2019-11-07 06:20] LABS: ANION GAP 15.1 mmol/L (8-16); CALCIUM 7.9 mg/dL (8.5-10.1); CARBON DIOXIDE 22.8 mmol/L (21.0-32.0); CREATININE - SERUM 1.1 mg/dL (0.6-1.3); POTASSIUM - SERUM 3.9 mmol/L (3.5-5.1)
[2019-11-07 08:00] VITALS: BP 135/69
--- NOTE | 2019-11-07 08:00 | NUR ---
PT RESTING IN BED WITH EYES OPEN CALL LIGHT IN REACH NO PROBLEMS WILL MONITER
--- NOTE | 2019-11-07 11:06 | NUR ---
PATIENT ADMITTED TO REHAB FROM ACUTE FLOOR. DR. RODRIGUEZ IS HER PCP. DME AT HOME IS WALKER AND A WHEELCHAIR. PATIENT LIVES AT [facility]. WILL CONTINUE TO FOLLOW WITH PATIENT AND WILL ASSIST WITH NEEDS.
[2019-11-07 12:33] VITALS: Ht 162.6 cm; Wt 49.0 kg
--- NOTE | 2019-11-07 19:20 | NUR ---
PT LYING IN BED. CL IN REACH. DENIES NEEDS OR PAIN AT THIS TIME. BED IN LOW SIDE RAILS X2. A/O X4. LUNGS CLEAR. BOWEL ACTIVE X4. PT ON AIR MATTRESS. STAGE 2 TO COCCYX. 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 RESP EVEN AND UNLABORED. WILL CONTINUE TO MONITOR
--- NOTE | 2019-11-08 03:50 | NUR ---
I have reviewed this patient and I concur with the Shift Assessment completed by the Licensed Practical Nurse today this shift.
[2019-11-08 07:11] LABS: BASOPHILS 0.3 % (0-2); EOSINOPHILS 1.1 % (0-7); HEMOGLOBIN 7.9 g/dL (12-16); IMMATURE GRANULOCYTES 2.2 % (0-5); LYMPHOCYTES 21.4 % (15-50); MCH 27.7 pg (26.0-34.0); MCHC 31.6 g/dL (31.0-37.0); MCV 87.7 fL (80.0-100.0); MEAN PLATELET VOLUME 8.8 fL (7.4-10.4); MONOCYTES 9.7 % (2-11); NEUTROPHILS 65.3 % (40-80); PLATELET COUNT 467 10x3/uL (130-400); RBC 2.85 10x6/uL (4.00-5.40); RDW 15.3 % (11.5-14.5); WBC 11.3 10x3/uL (4.8-10.8)
--- NOTE | 2019-11-08 07:30 | NUR ---
A/A/OX4. POSITIONED ON BACK WITH NO COMPLAINTS OR REQUESTS. STATES SHE IS JUST READY FOR BREAKFAST. SIDERAILS UP X 2, CALL LIGHT IN REACH AND BED IN LOW LOCKED POSITION. IV RIGHT AC PATENT WITH DRESSING IN PLACE. NO REDNESS OR EDEMA AT SITE.
[2019-11-08 07:32] LABS: ANION GAP 13.2 mmol/L (8-16); CALCIUM 7.7 mg/dL (8.5-10.1); CARBON DIOXIDE 23.4 mmol/L (21.0-32.0); CREATININE - SERUM 1.2 mg/dL (0.6-1.3); POTASSIUM - SERUM 3.6 mmol/L (3.5-5.1); URIC ACID 6.5 mg/dL (2.6-7.2); VANCOMYCIN - RANDOM 16.8 ug/mL (10.0-20.0)
[2019-11-08 08:56] VITALS: BP 127/72
--- NOTE | 2019-11-08 14:43 | NUR ---
IV STARTED IN LEFT FOREARM BY VASCULAR NURSE. PT TOLERATED WELL.
--- NOTE | 2019-11-08 15:37 | NUR ---
CARE TEAM MEETING: PATIENT IS NEW TO UNIT AND WILL BE RA AT NEXT MEETING. WILL CONTINUE TO FOLLOW WITH PATIENT.
--- NOTE | 2019-11-08 20:20 | NUR ---
BLOOD TRANSFUSION COMPLETE. PT TOLERATED WELL. NO SIGNS OF DISTRESS. RESPIRQATIONS EVEN AND UNLABORED. ALERT AND ORIENTED x4. PT ENCOURAGED TO CALL FOR HELP WHEN NEEDED. CALL LIGHT WITH IN REACH. BED ALARM ON AND ACTIVE. WILL CONTINUE TO MONITOR
--- NOTE | 2019-11-09 00:09 | NUR ---
BED LINEN CHANGED. VOID x1. ICE CREAM GIVEN PER PT REQUEST. CALL LIGHT WITH IN REACH. PT ENCOURAGED TO CALL FOR HELP WHEN NEEDED BED ALARM ON AND ACTIVE. WILL CONTINUE TO MONITOR.
--- NOTE | 2019-11-09 06:23 | NUR ---
I have reviewed this patient and I concur with the Shift Assessment completed by the Licensed Practical Nurse today this shift.
--- NOTE | 2019-11-09 08:00 | NUR ---
PT RESTING IN BED WITH EYES OPEN CALL LIGHT IN REACH WILL MONITER
[2019-11-09 08:18] VITALS: BP 138/67
--- NOTE | 2019-11-09 11:00 | NUR ---
I have reviewed this patient and I concur with the Shift Assessment completed by the Licensed Practical Nurse today this shift.
--- NOTE | 2019-11-09 14:07 | NUR ---
Nutrition Follow-up: Diet: Regular PO intake: 100% x 3 yesterday No new wt; last wt: 108# (11/06) Last BM: 11/07 Labs noted (11/07): Na 130, Ca 7.7 Meds noted: Colace, Bumex -Encourage PO intake and honor food preferences. -Monitor wt. -RD following.
--- NOTE | 2019-11-09 18:19 | NUR ---
PT RESTING IN BED WITH EYES OPEN CALL LIGHT IN REACH WILL MONITER
--- NOTE | 2019-11-09 18:27 | NUR ---
PT RESTING IN BED WATCHING TV CALL LIGHT IN REACH WILL MONITER
--- NOTE | 2019-11-09 19:10 | NUR ---
GREETED PATIENT AND INTRODUCED MYSELF HER NURSE. PATIENT IS LAYING IN BED WATCHING TV AT THIS TIME. O2 AT 2L IN USE VIA NC. RESPIRATIONS EVEN. NO S/S OF DISTRESS. DENIES ANY NEEDS AT THIS TIME. CALL LIGHT IN REACH.
[2019-11-09 20:00] VITALS: BP 123/69
--- NOTE | 2019-11-10 01:03 | NUR ---
PATIENT RESTING QUIETLY WITH EYES CLOSED. RESPIRATIONS EVEN. NO S/S OF DISTRESS. O2 AT 2L IN USE VIA NC. CALL LIGHT IN REACH.
[2019-11-10 05:52] LABS: MCH 28.5 pg (26.0-34.0); MCHC 31.9 g/dL (31.0-37.0); MCV 89.5 fL (80.0-100.0); MEAN PLATELET VOLUME 8.6 fL (7.4-10.4); PLATELET COUNT 450 10x3/uL (130-400); RDW 15.1 % (11.5-14.5); WBC 8.7 10x3/uL (4.8-10.8)
[2019-11-10 05:59] LABS: ANION GAP 14.1 mmol/L (8-16); CALCIUM 8.3 mg/dL (8.5-10.1); CARBON DIOXIDE 22.9 mmol/L (21.0-32.0); CREATININE - SERUM 1.3 mg/dL (0.6-1.3)
[2019-11-10 06:23] LABS: HEMATOCRIT 31.7 % (36.0-48.0); HEMOGLOBIN 10.1 g/dL (12-16); RBC 3.54 10x6/uL (4.00-5.40)
[2019-11-10 08:00] VITALS: BP 143/59
--- NOTE | 2019-11-10 08:00 | NUR ---
PT RESTING IN BED WITH EYES OPEN CALL LIGHT IN REACH WILL MONITER
[2019-11-10 12:09] LABS: BASOPHILS 1 % (0-2); CRENATED CELLS OCC; EOSINOPHILS 2 % (0-7); LYMPHOCYTES 33 % (15-50); MONOCYTES 15 % (2-11); NEUTROPHILS 47 % (40-80); PLATELET ESTIMATE INCREASED; ROULEAUX OCC
--- NOTE | 2019-11-10 14:12 | RHP ---
PATIENT: ERASMO CUNNINGHAM MEDICAL RECORD: [id number] ACCOUNT: [id number] LOCATION:[facility] D.1112 : 35 ADMISSION DATE: 11/06/19 REHABILITATION HISTORY AND PHYSICAL EXAMINATION POST ADMISSION PHYSICIAN EXAMINATION ADMITTING DIAGNOSIS: Disuse myopathy. HISTORY OF PRESENT ILLNESS: The patient is a very friendly elderly 84-year-old female patient who is in the rehab hospital earlier for initially disuse myopathy. The patient fell while she was on the unit, had a hip fracture, was transferred back to [facility], came back to the rehab and was doing well and then she began to run fever, was feeling bad, was diagnosed with flu and treated with Tamiflu and placed back on the floor. She is now back to rehab again, she is quite ill this time compared to her previous two admits. The patient has a history of comminuted hip fracture, disuse myopathy, blood loss anemia, acute kidney injury, degenerative joint disease, hypertension, hyperlipidemia, hypothyroidism, osteopenia, coronary artery disease, has history of back pain. The patient has been seen by pulmonary and ortho during her acute stay. She has been receiving OT and PT during her stay. She needs to be monitored closely for telemetry. She is on supplemental O2. Monitor her respiratory status closely. She is on IV antibiotics. She is on electrolyte protocol. We are monitoring her lab values. She has got proximal muscle weakness, balance deficits, decreased activity tolerance, decreased range of motion, decreased strength, gait disturbance, limited safety awareness. She has medical complexity for falls. The patient has unsteady gait and balance. She fatigues easily. She has got inability to care for self. These are all barriers to her discharge home. She was living at [facility] prior to this. She has got a pretty strong family support from her children who had actually been flying in to take care of her in shifts, but are unable to fly at this time. She is currently set up for max assist for ADLs and mod to max assist for mobility. She and her family would like for her to return back to her prior level of functioning. COMORBIDITIES: Include pulmonary effusion, weakness, acute respiratory failure. She got a history of Enterococcus faecalis, azotemia. PAST MEDICAL HISTORY: Significant for cataracts, dentures, thyroid problems, pacemaker placement, coronary artery disease, pneumonia, chronic back pain, and incontinence. PAST SURGICAL HISTORY: Includes tonsillectomy, adenoidectomy, pacemaker placement, she has got a broken jaw in the past. She has had brain surgery. ALLERGIES: SULFA, CLINDAMYCIN, AMOXICILLIN. CURRENT MEDICATIONS: Include Tylenol 650 mg every 6 hours p.r.n. She is on vancomycin at this time. She is on Colace 100 mg daily. She is on benazepril 10 mg daily, amlodipine 5 mg daily, amiodarone 200 mg daily. She is on Calmoseptine as needed, Neurontin 100 mg at bedtime. She is on Maxipime 2 g every 12 hours, Ana 60 mg b.i.d., Bumex 1 mg b.i.d., Eliquis 2.5 mg b.i.d., MiraLax 17 grams in 8 ounces of water daily and she is on Voltaren gel as needed. HABITS: No alcohol or tobacco use. HISTORY AND PHYSICAL [id number] ERASMO CUNNINGHAM FAMILY HISTORY: Noncontributory. SOCIAL HISTORY: The patient hopes to return back to [place] to get back to her prior level of functioning. REVIEW OF SYSTEMS: GENERAL: Does complain of weakness and fatigue. HEENT: Denies cold, cough, or congestion. CARDIOVASCULAR: Denies any chest pain. LUNGS: She does complain of shortness of breath. EXTREMITIES: She has also complained of some foot pain on the left at this time. PHYSICAL EXAMINATION: VITAL SIGNS: Stable. She is afebrile. GENERAL: Elderly female, in no acute distress upon exam. HEENT: Normocephalic and atraumatic. Mucosa moist. NECK: Supple without adenopathy. LUNGS: Clear in upper [place]. No wheezing, rhonchi, or rales. HEART: Has a regular rate and rhythm. No murmurs, rubs or gallops. ABDOMEN: Soft, benign, and nondistended. Positive bowel sounds times 4. EXTREMITIES: She does have some redness and swelling to her left foot. NEUROLOGIC: She does have a noted proximal muscle strength and weakness. LABORATORY DATA: Her vancomycin trough is 20.6. Her white count is 10.8, H&H of 9 and 28 and platelet count is 479. Sodium 131, potassium 3.9, BUN and creatinine of 51 and 1.1, and blood sugar is noted to be 95. ASSESSMENT: An 84-year-old female patient admitted to rehab with a working diagnosis of disuse myopathy complicated by hip fracture and flu. The patient has potential to make improvement. We instituted the following multidisciplinary areas including to, but not limited to physical, occupational, respiratory, speech, nutritional services, prosthetics and orthotics. Given her complex medical condition and risks for more complications, rehabilitation services cannot be provided at a low level of care such as skilled nurse facility. PLAN: 1. Admit to [facility] for inpatient therapy to include the following disciplines; A. Physical therapy to improve gait, all transfer skills and bed mobility to a modified independent level. B. Occupational therapy to improve activities of daily living. C. Case management to assist with discharge planning and placement options. D. Nutrition to assist with nutritional needs. E. Rehabilitation nursing to assist in monitoring the patient's underlying medical conditions and to assist with bowel or bladder management. 2. The patient's current medication and medical care will be continued. 3. The patient will be placed on standard fall precautions. 4. I am going to go ahead and check uric acid level on her and continue on current medications and see again in the a.m. TRANSINT:[id number] Voice Confirmation ID: [id number] DOCUMENT ID: [id number] HISTORY AND PHYSICAL [id number] ERASMO CUNNINGHAM notes whether there has been none or any medical/functional change since admission: - No change since prescreen. KIERSTEN attests patient continues to be appropriate for IRF: - Continues to be appropriate. LEONARD BASS MD at 1412 CC: [id number] DICTATION DATE: 11/07/19 1339 DIRECTOR CLINICAL INFORMATION SERVICES: 11/07/19 1400 ADM IN [facility] [address] [place] [address]
--- NOTE | 2019-11-10 17:20 | NUR ---
PT RESTING IN BED WITH EYES OPEN CALL LIGHT IN REACH WILL MONITER
--- NOTE | 2019-11-10 19:10 | NUR ---
BEDSIDE REPORT COMPLETE. PT LYING IN BED EYES CLOSED RESTING COMFORTABLY. EASILY AROUSED WITH VERBAL STIMULI. DENIES ANY NEEDS OR PAIN. LEFT FOREARM IV WITHOUT REDNESS OR SWELLING. DRESSING C/D/I. OVERLAY MATTRESS INFLATED NO SIGNS OF AIR LEAKS. REPOSITIONED PT WITH PILLOWS TO RIGHT SIDE. CALL LIGHT AND WATER WITHIN REACH. FALL PRECAUTIONS IN PLACE. CPOC
[2019-11-10 20:46] VITALS: BP 129/62
--- NOTE | 2019-11-10 23:29 | NUR ---
PT LYING IN BED WATCHING TV. DENIES ANY NEEDS OR PAIN. RR EVEN AND UNLABORED. CALL LIGHT WITHIN REACH. FALL PRECAUTIONS IN PLACE. CPOC
--- NOTE | 2019-11-11 03:28 | NUR ---
PT LYING IN BED EYES CLOSED RESTING COMFORTABLY. RR EVEN AND UNLABORED. CALL LIGHT WITHIN REACH. BED ALARM ON. CPOC
[2019-11-11 08:00] VITALS: BP 136/70
--- NOTE | 2019-11-11 08:30 | NUR ---
PATIENT IS ALERT/ORIENT. FIRST STEP MATTRESS ON BED. BED ALARM ON. CALL LIGHT WITHIN REACH. VOICES NO NEEDS AT THIS TIME. WILL CONTINUE WITH PLAN OF CARE
--- NOTE | 2019-11-11 11:09 | NUR ---
PATIENT IN REHAB ROOM. WORKING WITH PHYSICAL THERAPIST. DENIES ANY PAIN/DISC AT THIS TIME.
--- NOTE | 2019-11-11 14:32 | NUR ---
SALINE LOCK REMOVED TO LEFT FOREARM WITHOUT DIFFICULTY. PATIENT IS NOT ON ANY IV MEDICATIONS
--- NOTE | 2019-11-11 19:05 | NUR ---
BEDSIDE REPORT COMPLETE. PT SITTING UP IN BED WATCHING TV. ALERT AND ORIENTED X4. DENIES ANY NEEDS OR PAIN. NO SIGNS OF ACUTE DISTRESS NOTED. OVERLAY MATTRESS INFLATED NO SIGNS OF AIR LEAKS. CALL LIGHT AND WATER WITHIN REACH. BED ALARM ON. CPOC
[2019-11-11 19:42] VITALS: BP 147/63
--- NOTE | 2019-11-11 20:30 | NUR ---
PATIENT IS RESTING IN BED WITH EYES OPEN. NO S/S OF DISTRESS. NO C/O AT THIS TIME. PATIENT HAS 2L NASAL CANNULA OF O2. PATIENT IS HARD OF HEARING. PATIENT WEARS GLASSES. PATIENT HAS DENTURES, BUT ONLY THE TOP. PATIENT HAS A LEFT PACEMAKER AND DIFIBULATOR. PATIENT IS INCONTINENT OF BOWEL AND BLADDER SOEMTIMES. PATIENT HAS A STAGE 2 ON COCCYX, BARRIER CREAM APPLIED. PATIENT HAS A SKIN TEAR ON RIGHT BUTTOX, BARRRIER CREAM APPLIED. PATIENT HAS A RIGHT HIP INCISION THAT IS OPEN TO AIR. PATIENT IS ON A FIRST STEP OVERLAY. PATIENT IS UP WITH ASSIST, AND WHEELCHAIR TO BATHROOM. CALL LIGHT IN PLACE. WILL CONTINUE TO MONITOR.
--- NOTE | 2019-11-11 22:47 | NUR ---
I have reviewed this patient and I concur with the Shift Assessment completed by the Licensed Practical Nurse today this shift.
--- NOTE | 2019-11-12 07:22 | NUR ---
PATIENT IS ALERT/ORIENT. CALL LIGHT WITHIN REACH. VOICES NO NEEDS AT THIS TIME. WILL CONTINUE WITH PLAN OF CARE
[2019-11-12 08:00] VITALS: BP 141/71
--- NOTE | 2019-11-12 11:26 | NUR ---
PATIENT IS A MODERATE ASST OF ONE FOR TRANSFERS FROM BED TO WHEELCHAIR. INCONT OF URINE AT TIMES
[2019-11-12 20:10] VITALS: BP 126/65
--- NOTE | 2019-11-12 23:17 | NUR ---
INITIAL ROUNDS COMPLETED AT 1915 HRS. PT RESTING WITH EYES CLOSED. RESP EVEN AND REGULAR. ASSESSMENT COMPLETEDA T 201 HRS. VSS. ALERT AND ORIENTED TO PERSON, PLACE AND TIME. GARAY. O2 2LNC. BRUISES NSOTED TO BILAT ARMS. 2+ EDEMA TO FEET BILAT. LUNGS DIMINISHED IN BASES BILAT. VSS. PT INCONTINENT OF URINE. INCONTINENT CARE DONE. BUTTOCKS EXCORIATED. PM MEDS GIVEN PER ORDERS. PT CURRENTLY RESTING WITH EYES CLOSED. RESP EVEN AND REGULAR. SR UP X2, CALL LIGHT WITHIN REACH.
--- NOTE | 2019-11-13 00:21 | NUR ---
PT RESTING WITH EYES CLOSED. RESP EVEN AND REGULAR. CALL LIGHT WITHIN REACH.
--- NOTE | 2019-11-13 01:34 | NUR ---
PT INCONTINENT OF URINE. INCONTINENT CARE DONE. PT TOLERATED ACTIVITY WELL.
--- NOTE | 2019-11-13 02:12 | NUR ---
PT AWAKE WATCHING TV. NO DISTRESS NOTED. CALL LIGHT WITHIN REACH.
--- NOTE | 2019-11-13 04:52 | NUR ---
PT RESTING WITH EYES CLOSED. RESP EVEN AND REGULAR. SR UP X2, CALL LIGHT WITHIN REACH.
--- NOTE | 2019-11-13 06:25 | NUR ---
PT RESTED WELL DURING SHIFT. STATED PERCOCET ALLEVIATED GENERALIZED DISCOMFORT. INCONTINENT X3 DURING SHIFT. NEEDS MET; WILL CONTINUE TO MONITOR.
--- NOTE | 2019-11-13 07:33 | NUR ---
A/A/0X4. DENIES ANY PAIN OR DISCOMFORT AND RESP EVEN AND UNLABORED WITH 02 2L/M N/C. SIDERAILS UP X 2, CALL LIGHT IN REACH AND BED IN LOW, LOCKED POSITION. WILL CONTINUE POC.
[2019-11-13 08:10] VITALS: BP 129/62
[2019-11-13 09:46] LABS: ANION GAP 14.1 mmol/L (8-16); CALCIUM 8.4 mg/dL (8.5-10.1); CARBON DIOXIDE 27.8 mmol/L (21.0-32.0)
[2019-11-13 09:48] LABS: POTASSIUM - SERUM 2.9 mmol/L (3.5-5.1)
[2019-11-13 10:03] LABS: BASOPHILS 0.9 % (0-2); EOSINOPHILS 0.9 % (0-7); HEMATOCRIT 35.2 % (36.0-48.0); IMMATURE GRANULOCYTES 1.9 % (0-5); LYMPHOCYTES 35.8 % (15-50); MCH 28.6 pg (26.0-34.0); MCHC 31.3 g/dL (31.0-37.0); MCV 91.7 fL (80.0-100.0); MEAN PLATELET VOLUME 8.7 fL (7.4-10.4); MONOCYTES 8.9 % (2-11); NEUTROPHILS 51.6 % (40-80); PLATELET COUNT 522 10x3/uL (130-400); RBC 3.84 10x6/uL (4.00-5.40); RDW 15.6 % (11.5-14.5); WBC 8.1 10x3/uL (4.8-10.8)
--- NOTE | 2019-11-13 11:47 | NUR ---
Pt has a stage 2 pressure injury on sacrum measuring 2cm x 2.5cm. It was present on admission to rehab as noted on admission assessment. Excoriation is noted on bilateral buttocks along with blanchable redness. Zinc paste is being applied and pt is attempting to stay on her side while in bed. She is on an air overlay mattress. Wound care will continue monitoring.
--- NOTE | 2019-11-13 19:00 | NUR ---
BEDSIDE REPORT COMPLETE. PT SITTING UP IN BED WATCHING TV. ALERT AND ORIENTED X4. DENIES ANY NEEDS OR PAIN. CONTINUES ON 2L VIA NC. NO SIGNS OF ACUTE DISTRESS NOTED. OVERLAY MATTRESS FUNCTIONING PROPERLY. CALL LIGHT WITHIN REACH. BED ALARM ON. CPOC
[2019-11-13 20:11] VITALS: BP 134/58
--- NOTE | 2019-11-13 23:29 | NUR ---
PT LYING IN BED ON RIGHT SIDE EYES CLOSED RESTING COMFORTABLY. RR EVEN AND UNLABORED. CALL LIGHT WITHIN REACH. BED ALARM ON. CPOC
--- NOTE | 2019-11-14 04:07 | NUR ---
PT LYING IN BED EYES CLOSED RESTING COMFORTABLY. RR EVEN AND UNLABORED. CALL LIGHT WITHIN REACH. BED ALARM ON. CPOC
--- NOTE | 2019-11-14 05:45 | NUR ---
INCONTINENCE CARE PROVIDED. MED VOID. CALMOSEPTINE APPLIED TO BUTTOCKS. DENIES ANY OTHER NEEDS OR PAIN. RR EVEN AND UNLABORED. CALL LIGHT WITHIN REACH. BED ALARM ON. CPOC
[2019-11-14 08:57] VITALS: BP 117/64
--- NOTE | 2019-11-14 10:16 | NUR ---
PT C/O OF RECTUM HURTING. PT TAKEN TO BR. PT HAD PROLAPSED RECTUM. RECTUM SUGARED AND REINSERTED. PT PRN PAIN MEDICATION GIVEN WITH AM MEDS AT THIS TIME. WCTM.
--- NOTE | 2019-11-14 13:44 | NUR ---
Nutrition follow-up: Diet: Regular PO intake ~60% average of last 9 meals Labs reviewed Wt: 108# at admit; no new wt to assess +BM PO intake if fair at this time Will continue to provide food choices and honor food preferences. RDN following.
--- NOTE | 2019-11-14 19:46 | NUR ---
AWAKE AND ALERT. RESTING IN BED. RESPIRATIONS UNALBORED. O2/2L ON PER NASAL CANNULA. CALL LIGHT IN REACH.
[2019-11-14 20:00] VITALS: BP 129/56
--- NOTE | 2019-11-15 00:48 | NUR ---
RESTING IN BED WITH EYES CLOSED AND RESPIRATIONS UNLABORED. NO ACUTE DISTRESS NOTED.
--- NOTE | 2019-11-15 06:36 | NUR ---
QUIET HOURS. NO ACUTE CHANGES IN CONDITION THIS SHIFT. RESTING IN BED WITH NO ACUTE DISTRESS NOTED. CALL LIGHT IN REACH.
[2019-11-15 08:00] VITALS: BP 141/73
--- NOTE | 2019-11-15 08:00 | NUR ---
ALERT AND ORIENTED, NO S/S OF DISTRESS NOTED, EATING BREAKFAST, DENIES ANY PAIN AT THIS TIME.
[2019-11-15 08:10] LABS: ANION GAP 8.7 mmol/L (8-16); CALCIUM 7.8 mg/dL (8.5-10.1); CARBON DIOXIDE 32.3 mmol/L (21.0-32.0); CREATININE - SERUM 0.8 mg/dL (0.6-1.3)
[2019-11-15 11:39] VITALS: BP 141/73
--- NOTE | 2019-11-15 12:00 | NUR ---
I have reviewed this patient and I concur with the Shift Assessment completed by the Licensed Practical Nurse today this shift.
--- NOTE | 2019-11-15 14:06 | NUR ---
CARE TEAM MEETING: PATIENT IS PROGRESSING IN THERAPY. TENATIVE DISCHARGE DATE IS 11/22/19. WILL CONTINUE TO FOLLOW WITH PATIENT.
--- NOTE | 2019-11-15 16:17 | NUR ---
AWAKE AND ALERT IN BED RESTING ON LEFT SIDE, DENIES ANY PAIN AT THIS TIME, C/L AND H2O IN REACH.
--- NOTE | 2019-11-15 19:17 | NUR ---
BEDSIDE REPORT COMPLETE. PT SITTING UP IN BED WATCHING TV. ALERT AND ORIENTED X4. DENIES ANY NEEDS OR PAIN. CONTINUES ON 2L VIA NC. NO SIGNS OF ACUTE DISTRESS NOTED. RIGHT HIP INCISION HEALING NO REDNESS OR TENDERNESS. RLE +3 EDEMA. HEELS BRIDGED. CALL LIGHT AND WATER WITHIN REACH. BED ALARM ON. CPOC
[2019-11-15 21:08] VITALS: BP 119/70
--- NOTE | 2019-11-16 00:37 | NUR ---
PT LYING IN BED ON RIGHT SIDE EYES CLOSED RESTING. RR EVEN AND UNLABORED. CALL LIGHT AND WATER WITHIN REACH. CONTINUES ON 2L VIA NC. CPOC
--- NOTE | 2019-11-16 03:50 | NUR ---
PT LYING IN BED ON RIGHT SIDE EYES CLOSED RESTING COMFORTABLY. RR EVEN AND UNLABORED. CALL LIGHT WITHIN REACH. BED ALARM ON. CPOC
--- NOTE | 2019-11-16 05:40 | NUR ---
INCONTINENCE CARE PROVIDED. BRIEF CHANGED LARGE VOID. CALMOSEPTINE APPLIED TO BUTTOCKS AND PERIAREA. DENIES ANY OTHER NEEDS OR PAIN. CALL LIGHT AND WATER WITHIN REACH. BED ALARM ON. CPOC
[2019-11-16 08:00] VITALS: BP 137/75
--- NOTE | 2019-11-16 08:00 | NUR ---
PATIENT SITTING UP IN BED. CALL LIGHT WITHIN REACH. VOICES NO NEEDS AT THIS TIME. WILL CONTINUE WITH PLAN OF CARE
--- NOTE | 2019-11-16 10:49 | NUR ---
PATIENT IN [facility] ROOM. WORKING WITH PHYSICAL THERAPIST. DENIES ANY PAIN/DISC AT THIS TIME.
[2019-11-16 19:45] VITALS: BP 122/69
--- NOTE | 2019-11-16 20:47 | NUR ---
PT IS ALERT AND ORIENTED. SITTING UP IN BED. INTRODUCED MYSELF TO PT. SHE VOICED NO CONCERNS AT THIS TIME. CALL LIGHT IN REACH. WILL CONTINUE TO MONITOR.
--- NOTE | 2019-11-16 23:36 | NUR ---
PT RESTING CALMLY IN BED WITH EYES CLOSED. VOICED NO NEEDS OR CONCERNS AT THIS TIME. CALL LIGHT IN REACH. BED IN LOWEST POSITION. WILL CONTINUE TO MONITOR.
--- NOTE | 2019-11-17 03:37 | NUR ---
PT IS RESTING CALMLY IN BED WATCHING TV. O2 ON VIA NC @2L. SHE DENIES ANY NEEDS AT THIS TIME. CALL LIGHT IN REACH. WILL CONTINUE TO MONITOR.
--- NOTE | 2019-11-17 06:31 | NUR ---
PT IS UP SITTING IN HER BED WATCHING TV. REQUESTED SNACK. CALL LIGHT IN REACH. VOICED NO NEEDS AT THIS TIME. WILL CONTINUE TO MONITOR.
[2019-11-17 07:22] LABS: BASOPHILS 0.7 % (0-2); EOSINOPHILS 1.1 % (0-7); HEMATOCRIT 31.7 % (36.0-48.0); HEMOGLOBIN 9.8 g/dL (12-16); IMMATURE GRANULOCYTES 1.6 % (0-5); LYMPHOCYTES 43.9 % (15-50); MCH 27.8 pg (26.0-34.0); MCHC 30.9 g/dL (31.0-37.0); MCV 90.1 fL (80.0-100.0); MEAN PLATELET VOLUME 8.6 fL (7.4-10.4); MONOCYTES 10.2 % (2-11); NEUTROPHILS 42.5 % (40-80); PLATELET COUNT 421 10x3/uL (130-400); RBC 3.52 10x6/uL (4.00-5.40); RDW 15.5 % (11.5-14.5); WBC 5.7 10x3/uL (4.8-10.8)
[2019-11-17 07:41] LABS: CALC OSMOLALITY 277 mosm/kg (275-300); CHLORIDE - SERUM 98 mmol/L (98-107); CREATININE - SERUM 0.7 mg/dL (0.6-1.3); GLUCOSE 85 mg/dL (74-106); POTASSIUM - SERUM 3.2 mmol/L (3.5-5.1); SODIUM 138 mmol/L (136-145); UREA NITROGEN 21 mg/dL (7-18); eGFR NON AFRICAN AMERICAN 84 mL/min (90-120)
[2019-11-17 08:00] VITALS: BP 142/77
--- NOTE | 2019-11-17 08:00 | NUR ---
PATIENT IS ALERT/ORIENT. ON A FIRST STEP MATTRESS. CALL LIGHT WITHIN REACH. VOICES NO NEEDS AT THIS TIME. WILL CONTINUE WITH PLAN OF CARE
--- NOTE | 2019-11-17 10:02 | NUR ---
PATIENT IN REHAB ROOM. WORKING WITH PHYSICAL THERAPIST. DENIES ANY PAIN/DISC AT THIS TIME.
--- NOTE | 2019-11-17 19:02 | NUR ---
GREETED PATIENT AND INTRODUCED MYSELF HER NURSE. PATIENT IS LAYING IN BED WATCHING TV AT THIS TIME. O2 AT 2L IN USE VIA NC. RESPIRATIONS EVEN. NO S/S OF DISTRESS. CALL LIGHT IN REACH. DENIES ANY NEEDS AT THIS TIME.
[2019-11-17 19:30] VITALS: BP 124/69
--- NOTE | 2019-11-18 03:02 | NUR ---
PT RESTING QUIETLY WITH EYES CLOSED. RESPIRATIONS EVEN. NO S/S OF DISTRESS. O2 AT 2L IN USE VIA NC. CALL LIGHT IN REACH.
--- NOTE | 2019-11-18 07:38 | NUR ---
A/A/OX4. DENIES ANY PAIN OR DISCOMFORT AT THIS TIME AND VOICES NO REQUESTS. POSITIONED ON BACK, 02 0N PER N/C AT 2L/M. SIDERAILS UP X 2, CALL LIGHT IN REACH AND BED IN LOW LOCKED POSITION.
[2019-11-18 10:35] VITALS: BP 119/74
--- NOTE | 2019-11-18 11:57 | NUR ---
I have reviewed this patient and I concur with the Shift Assessment completed by the Licensed Practical Nurse today this shift.
--- NOTE | 2019-11-18 18:50 | NUR ---
GREETED PATIENT AND INTRODUCED MYSELF HER NURSE. PATIENT IS RESTING QUIETLY WATCHING TV AT THIS TIME. BEDSIDE SHIFT REPORT COMPLETED FROM OFF GOING NURSE. O2 AT 2L IN USE VIA NC. RESPIRATIONS EVEN. NO S/S OF DISTRESS. CALL LIGHT IN REACH.
[2019-11-18 19:45] VITALS: BP 126/68
--- NOTE | 2019-11-19 02:18 | NUR ---
PT RESTING QUIETLY WITH EYES CLOSED. RESPIRATIONS EVEN. NO S/S OF DISTRESS. CALL LIGHT IN REACH.
--- NOTE | 2019-11-19 06:20 | NUR ---
PT AWAKE AND LAYING IN BED WATCHING TV. O2 AT 2L IN USE VIA NC. RESPIRATIONS EVEN. NO S/S OF DISTRESS. CALL LIGHT IN REACH.
--- NOTE | 2019-11-19 07:22 | NUR ---
A/A/OX4. DENEIS ANY PAIN OR NEEDS AT THIS TIME. CALL LIGHT IN REACH, SIDERAILS UP X 2 AND BED IN LOW, LOCKED POSITION. NO APPARENT NEW PROBLEMS AT THIS TIME.
[2019-11-19 11:21] VITALS: BP 126/79
--- NOTE | 2019-11-19 13:00 | NUR ---
I have reviewed this patient and I concur with the Shift Assessment completed by the Licensed Practical Nurse today this shift.
--- NOTE | 2019-11-19 13:46 | NUR ---
PT ASSISTED INTO W/C AND TRANSFERRED WELL. TO SHOWER AND ASSISTED WITH BATHING, DID NOT WANT HER HAIR WASHED THOUGH. ASSISTED TO COMMODE AND HAD LARGE SOFT FORMED STOOL. CALMOSEPTINE OINT APPLIED TO SITE OF PRESSURE ULCER AND MIPILEX APPLIED OVER IT. PT STATED IT FEELS MUCH BETTER LIKE THAT THAN LEFT OPEN. ASSISTED BACK TO BED AND MADE COMFORTABLE. NO REQUESTS VOICED. STATES SHE FEEL MUCH BETTER NOW.
--- NOTE | 2019-11-19 18:55 | NUR ---
GREETED PATIENT AND INTRODUCED MYSELF HER NURSE. PATIENT IS LAYING IN BED WATCHING TV AT THIS TIME. RESPIRATIONS EVEN. NO S/S OF DISTRESS. O2 AT 2L IN USE VIA NC. CALL LIGHT IN REACH.
--- NOTE | 2019-11-19 18:55 | NUR ---
GREETED PATIENT AND INTRODUCED MYSELF HER NURSE. PATIENT IS RESTING QUIETLY IN BED WATCHING TV AT THIS TIME. O2 AT 2L IN USE VIA NC. RESPIRATIONS EVEN. NO S/S OF DISTRESS. BEDSIDE SHIFT REPORT COMPLETED FROM OFF GOING NURSE. PT. DENIES ANY FURTHER NEEDS AT THIS TIME. CALL LIGHT IN REACH.
[2019-11-19 20:00] VITALS: BP 122/70
--- NOTE | 2019-11-20 00:32 | NUR ---
PT RESTING QUIETLY WITH EYES CLOSED. RESPIRATIONS EVEN. NO S/S OF DISTRESS. O2 AT 2L IN USE. CALL LIGHT IN REACH.
[2019-11-20 05:28] LABS: BASOPHILS 0.6 % (0-2); EOSINOPHILS 1.2 % (0-7); HEMATOCRIT 34.5 % (36.0-48.0); HEMOGLOBIN 10.7 g/dL (12-16); IMMATURE GRANULOCYTES 0.8 % (0-5); LYMPHOCYTES 41.5 % (15-50); MCH 27.9 pg (26.0-34.0); MCV 89.8 fL (80.0-100.0); MEAN PLATELET VOLUME 8.9 fL (7.4-10.4); MONOCYTES 10.9 % (2-11); PLATELET COUNT 362 10x3/uL (130-400); RBC 3.84 10x6/uL (4.00-5.40); RDW 15.7 % (11.5-14.5); WBC 8.3 10x3/uL (4.8-10.8)
[2019-11-20 05:39] LABS: ANION GAP 8.7 mmol/L (8-16); CALCIUM 8.1 mg/dL (8.5-10.1); CARBON DIOXIDE 31.6 mmol/L (21.0-32.0); CREATININE - SERUM 0.8 mg/dL (0.6-1.3); POTASSIUM - SERUM 3.3 mmol/L (3.5-5.1)
--- NOTE | 2019-11-20 07:39 | NUR ---
AWAKE AND ALERT IN BED WATCHING TV, NO NEEDS AT THIS TIME, DENIES ANY PAIN, C/L AND H2O IN REACH
[2019-11-20 08:09] VITALS: BP 138/76
[2019-11-20 10:11] VITALS: BP 138/76
--- NOTE | 2019-11-20 12:08 | NUR ---
UP IN W/C EATING LUNCH, DENIES ANY NEEDS AT THIS TIME, C/L AND H2O IN REACH
--- NOTE | 2019-11-20 16:00 | NUR ---
AWAKE AND ALERT IN BED, DENIES ANY NEEDS AT THIS TIME, C/L AND H2O IN REACH.
--- NOTE | 2019-11-20 19:45 | NUR ---
ASSESSMENT PER FLOW SHEET, VS OBTAINED PER REIMBURSEMENT AUDITOR, PT REPORTS FLATUS AND BM TODAY, PT DENIES NEEDS OR PAIN AT THIS TIME, BED IN LOW POSITION, SIDE RAILS X 2, CALL LIGHT IN REACH, BED ALARM ON AND WORKING PROPERLY
[2019-11-20 20:00] VITALS: BP 117/64
--- NOTE | 2019-11-20 20:02 | NUR ---
PT REQUESTED AND PROVIDED LIP AND MOUTH MOISTURIZER
--- NOTE | 2019-11-20 20:10 | NUR ---
PT REQUESTED AND SERVED VITA URIARTE, DENIES FURTHER NEEDS
--- NOTE | 2019-11-20 20:45 | NUR ---
PT AWAKE, ADM 2100 MEDS PER MD ORDERS, SEE EMAR, PT INC OF URINE AND BM, PT CLEANED UP WITH WET WIPES, DAVID APPLIED, WHITE CHUX CHANGED, CLEAN LINENS APPLIED, PT REPOSITIONED IN BED, BED IN LOW POSITION, SIDE RAILS X 2, CALL LIGHT IN REACH, BED ALARM ON AND WORKING PROPERLY
--- NOTE | 2019-11-20 22:18 | NUR ---
PT RESTING WITH EYES CLOSED, RESP QUIET, NO DISTRESS NOTED, LEFT UNDISTURBED AT THIS TIME, BED IN LOW POSITION, SIDE RAILS X 2, CALL LIGHT IN REACH, BED ALARM ON AND WORKING PROPERLY
--- NOTE | 2019-11-21 02:40 | NUR ---
PT AWAKE, PT INC OF URINE AND BOWEL, PT CLEANED UP WITH WET WARM WIPES, WHITE CHUX AND BEDDING CHANGED, PT PLACED IN YELLOW GOWN AT THIS TIME, PT DENIES PAIN, REQUESTED AND SERVED ORANGE SHERBERT AND FRESH H20, PT DENIES FURTHER NEEDS, BED IN LOW POSITION, SIDE RAILS X 2, CALL LIGHT IN REACH, BED ALARM ON AND WORKING PROPERLY
--- NOTE | 2019-11-21 04:32 | NUR ---
PT AWAKE, PT REPORTS BEING WET, PT INC OF URINE AND BOWEL, PT CLEANED UP WITH WET WARM WIPES, WHITE CHUX CHANGED, PT DENIES FURTHER NEEDS OR PAIN AT THIS TIME, BED IN LOW POSITION, SIDE RAILS X 2, CALL LIGHT IN REACH, BED ALARM ON AND WORKING PROPERLY
[2019-11-21 08:00] VITALS: BP 150/78
--- NOTE | 2019-11-21 08:00 | NUR ---
PT RESTING IN BED WITH EYES OPEN CALL LIGHT IN REACH WILL MONITER
--- NOTE | 2019-11-21 08:58 | NUR ---
PT RESTING IN BED WITH EYES OPEN CALL LIGHT IN REACH WILL MONITER
--- NOTE | 2019-11-21 13:04 | NUR ---
Nutrition follow-up: Diet: Regular PO Intake ~72% average of last 9 meals Labs reviewed Wt: 108# PO intake improved RDN following.
--- NOTE | 2019-11-21 19:21 | NUR ---
GREETED PATIENT AND INTRODUCED MYSELF HER NURSE. PATIENT IS LAYING IN BED WATCHING TV AT THIS TIME. O2 AT 2L IN USE VIA NC. RESPIRATIONS EVEN. NO S/S OF DISTRESS. CALL LIGHT IN REACH.
[2019-11-21 20:47] VITALS: BP 122/60
--- NOTE | 2019-11-22 02:51 | NUR ---
PT RESTING QUIETLY WITH EYES CLOSED. RESPIRATIONS EVEN. NO S/S OF DISTRESS. O2 AT 2L IN USE VIA NC. CALL LIGHT IN REACH.
[2019-11-22 07:09] LABS: BASOPHILS 0.5 % (0-2); HEMATOCRIT 32.9 % (36.0-48.0); HEMOGLOBIN 10.3 g/dL (12-16); IMMATURE GRANULOCYTES 1.5 % (0-5); LYMPHOCYTES 43.2 % (15-50); MCH 28.1 pg (26.0-34.0); MCHC 31.3 g/dL (31.0-37.0); MCV 89.6 fL (80.0-100.0); MEAN PLATELET VOLUME 8.6 fL (7.4-10.4); MONOCYTES 9.4 % (2-11); NEUTROPHILS 44.4 % (40-80); PLATELET COUNT 313 10x3/uL (130-400); RBC 3.67 10x6/uL (4.00-5.40); RDW 15.9 % (11.5-14.5); WBC 5.9 10x3/uL (4.8-10.8)
[2019-11-22 07:24] LABS: CALCIUM 8.2 mg/dL (8.5-10.1); CARBON DIOXIDE 28.5 mmol/L (21.0-32.0); CREATININE - SERUM 0.9 mg/dL (0.6-1.3); POTASSIUM - SERUM 3.5 mmol/L (3.5-5.1)
[2019-11-22 08:00] VITALS: BP 149/76
--- NOTE | 2019-11-22 08:00 | NUR ---
UP IN BED EATING BREAKFAST, DENIES ANY PAIN OR NEEDS AT THIS TIME, C/L AND H2O IN REACH
[2019-11-22] MEDS ORDERED: K-DUR20 MEQ PO (08:49)
--- NOTE | 2019-11-22 10:00 | NUR ---
I have reviewed this patient and I concur with the Shift Assessment completed by the Licensed Practical Nurse today this shift.
--- NOTE | 2019-11-22 11:00 | NUR ---
PATIENT DISCHARGING HOME TODAY WITH FAMILY AND 22/02 [facility]. NO NEW DME NEEDED AT THIS TIME. DR. VORA 12/07/19 @ 11:30. [facility] AT HOME WILL RESUME THERAPY AT HOME. PATIENT CHOICE FORM FORM HOME HEALTH AND [facility] FORM SIGNED, PER VERBAL CONCENT OF TORI MERCER PATIENT SON. DISCHARGE INSTRUCTIONS FAXED TO PCP, HOME HEALTH AND DISCUSSED WITH PATIENT SON PER PRIMARY NURSE. NO COMPARE DATA REVIEWED PATIENT IS A CLIENT OF [facility] AT HOME AND WOULD LIKE TO CONTINUE WITH THEM.
== END 2019-11-22 13:00 | disposition home or self-care (01) | DRG 91 ==
LOC: D.REHAB 18:14
PROVIDERS: ADMIT Emergency Medicine; ATTEND Emergency Medicine
DX: G72.9 Myopathy, unspecified (principal); J18.9 Pneumonia, unspecified organism; G93.41 Metabolic encephalopathy; J96.01 Acute respiratory failure with hypoxia; E87.1 Hypo-osmolality and hyponatremia; J98.11 Atelectasis; N39.0 Urinary tract infection, site not specified; J96.10 Chronic respiratory failure, unspecified whether with hypoxia or hypercapnia; I50.22 Chronic systolic (congestive) heart failure; J11.1 Influenza due to unidentified influenza virus with other respiratory manifestations; D64.9 Anemia, unspecified; I25.10 Atherosclerotic heart disease of native coronary artery without angina pectoris; I48.91 Unspecified atrial fibrillation; E03.9 Hypothyroidism, unspecified; E78.5 Hyperlipidemia, unspecified; F03.90 Unspecified dementia, unspecified severity, without behavioral disturbance, psychotic disturbance, mood disturbance, and anxiety; S72.001D Fracture of unspecified part of neck of right femur, subsequent encounter for closed fracture with routine healing; M51.36 Other intervertebral disc degeneration, lumbar region

== ENCOUNTER → 2019-11-30 12:40 | Outpatient (CLI) | payer MEDICARE, OTHER ==
[2019-11-07 12:33] VITALS: BMI 18.5
[2019-11-30 16:36] LABS: BILIRUBIN NEGATIVE (NEGATIVE); GLUCOSE NEGATIVE (NEGATIVE); KETONE NEGATIVE (NEGATIVE); NITRITE NEGATIVE (NEGATIVE); UROBILINOGEN NORMAL (NORMAL)
== END | disposition home or self-care (01) ==
LOC: D.LABREF 12:40
PROVIDERS: ATTEND Legal Medicine
DX: R30.9 Painful micturition, unspecified (principal)

== ENCOUNTER → 2020-12-11 08:49 | Outpatient (CLI) | payer MEDICARE, OTHER ==
[2019-11-07 12:33] VITALS: BMI 18.5
== END | disposition home or self-care (01) ==
LOC: D.HCCECHO 08:49
PROVIDERS: ATTEND Internal Medicine Cardiovascular Disease
DX: I20.9 Angina pectoris, unspecified (principal)

== ENCOUNTER → 2020-12-27 07:57 | Outpatient (CLI) | payer MEDICARE, OTHER ==
[2019-11-07 12:33] VITALS: BMI 18.5
== END | disposition home or self-care (01) ==
LOC: D.RAD 07:57
PROVIDERS: ATTEND Surgery
DX: K62.3 Rectal prolapse (principal)

== ENCOUNTER 2021-01-09 05:23 | Observation (INO) | payer MEDICARE, OTHER ==
[~2021-01-09] VITALS: Ht 157.5 cm; Wt 45.5 kg
--- NOTE | ~2021-01-09 | OP ---
PATIENT NAME: ERASMO CUNNINGHAM MEDICAL RECORD: [id number] :35 LOCATION:[id number] ADMISSION DATE:01/09/21 SURGEON: SHARON FELIPE MD DATE OF OPERATION: 01/09/2021 PREOPERATIVE DIAGNOSES: 1. Rectal prolapse. 2. Hypertension. 3. Hyperlipidemia. 4. Coronary artery disease. 5. Hypothyroidism. 6. Lupus. 7. Sjogren syndrome. POSTOPERATIVE DIAGNOSES: 1. Rectal prolapse. 2. Hypertension. 3. Hyperlipidemia. 4. Coronary artery disease. 5. Hypothyroidism. 6. Lupus. 7. Sjogren syndrome. PROCEDURE: Altemeier procedure. SURGEON: Sharon Felipe MD REPORT OF PROCEDURE: The patient was placed in lithotomy position and the perianal region was prepped and draped in sterile fashion. The patient had about 5-6 cm prolapse of the rectum at this time. I went ahead and scored the distal aspect of the rectum about a centimeter from the dentate line. Using electrocautery, I came through the subcutaneous tissues and entered the space between the redundant colon. We began our dissection taking down any of the vessels that we encountered using a sequential clamp and tie technique with 3-0 silks. We eventually entered the abdominal cavity and began dissection of the rectum and sigmoid colon down until we finally got to the point where we could no longer pull it any further. Approximately 2-1/2 feet of colon and rectum were taken out. Using the sequential clamp and tie technique, we took down the mesenteric vessels. At the conclusion of this, there was no sign of any active bleeding in the cavity. The levator muscles were then reapproximated posteriorly using interrupted 2-0 Prolenes times 2. The colon was then transected and using 2-0 Vicryl, we reestablished an anastomosis just proximal to the dentate line using multiple interrupted 2-0 Vicryls. At the conclusion of this, there was good approximation of the tissue. There was no soilage of stool throughout the case. We eventually just irrigated out the rectum and anal region and applied Americaine to the suture line. There was no evidence of any bleeding at the end of the procedure. COMPLICATIONS: None. CONDITION: Stable. ANESTHESIA: General endotracheal. BLOOD LOSS: 100 mL. OPERATIVE REPORT [id number] ERASMO CUNNINGHAM TRANSINT:[id number] Voice Confirmation ID: [id number] DOCUMENT ID: [id number] SHARON FELIPE MD CC: BARRY VORA MD [id number] DICTATION DATE: 01/09/21 1010 TEST AUTOMATION ARCHITECT: 01/09/21 1033 ADM IN [facility] [id number] [place] [address]
[~2021-01-09 05:23] MED LIST changes: +COREG6.25 MG PO; +LEVOTHYROXINE50 MCG PO; +PRAVASTATIN TAB 40M PO; +VESICARE5 MG PO
[2021-01-09 06:03] LABS: ANION GAP 9.7 mmol/L (8-16); CALCIUM 9.2 mg/dL (8.5-10.1); CARBON DIOXIDE 31.5 mmol/L (21.0-32.0); POTASSIUM - SERUM 4.2 mmol/L (3.5-5.1)
[2021-01-09 06:06] LABS: BASOPHILS 0.7 % (0-2); EOSINOPHILS 1.1 % (0-7); HEMATOCRIT 39.7 % (36.0-48.0); HEMOGLOBIN 13.1 g/dL (12-16); LYMPHOCYTES 27.3 % (15-50); MCH 30.5 pg (26.0-34.0); MCV 92.6 fL (80.0-100.0); MEAN PLATELET VOLUME 6.9 fL (7.4-10.4); MONOCYTES 8.4 % (2-11); NEUTROPHILS 62.5 % (40-80); PLATELET COUNT 299 10x3/uL (130-400); RBC 4.29 10x6/uL (4.00-5.40); RDW 16.2 % (11.5-14.5); WBC 7.2 10x3/uL (4.8-10.8)
[2021-01-09 07:14] VITALS: BP 107/67; BMI 17.4
--- NOTE | 2021-01-09 07:23 | NUR ---
0620 ADMISSION BLOOD PRESSURES ON RIGHT AND LEFT ARM ARE LOW. RBP 75/50 LBP 75/51 0625 IV STARTED IN RIGHT ARM. LACTATED RINGERS STARTED AND GIVING PT A 500CC BOLUS AFTER DISCUSSING WITH MARGIE BREWER. ROBINAL HELD SECONDARY TO PT BEING DEHYDRATED. 0700 SBP IN LEFT ARM IS 107/67 AFTER 500CC BOLUS OF LR. IV SLOWED TO TKO AFTER BOLUS.
--- NOTE | 2021-01-09 10:37 | NUR ---
PT STATES SHE IS IN NO PAIN. BUT PATIETN IS GURADING ABD. GRIMACING. ASKED IF SHE IS NAUSEAOS AND DENIED. STATES SHE IS JUST CRAMPING VERY BADLEY. WILL TREAT PER PROTOCOL.
--- NOTE | 2021-01-09 13:14 | NUR ---
1230 iv removed and INSTRUCTIONS GIVEN. 1300 PT GIVEN A RX FOR A WALKER. 1310 PT D/C HOME
--- NOTE | 2021-01-09 13:45 | NUR ---
1330 ASSISTED UP TO BSC UNABLE TO VOID. DRESSING CHANGED TO RECTAL AREA. SMALL TO MOD AMT OF BLOOD ON GAUZE.BLADDER SCAN DONE 346ML URINE, PT BACK TO BED ON LEFT SIDE WTIH CALL LIGHT IN REACH.
--- NOTE | 2021-01-09 15:22 | NUR ---
1500 UNABLE TO URIANTE ON BEDSIDE COMMODE, ASSISTED TO BED, DR PERES CALLED AND ORDERS GIVEN TO INSERT VELARDE CATH. ATTEMPTED 3 TIMES, DIFFICULT CATH. FALLEN BLADDER. TOLERATED WELL, 350ML OF CLOUDY YELLOW URINE WITH PUNGENT ODOR
--- NOTE | 2021-01-09 16:02 | NUR ---
1600 DR PERES CALLED TO NOTIFY PTS DIFFICULY CATH AND URINE CLOWDY AND PUNGENT ODER. ORDERS GIVEN AND NOTED
[2021-01-09 16:28] VITALS: BP 134/67; Ht 157.5 cm; Wt 45.5 kg
--- NOTE | 2021-01-09 16:31 | NUR ---
1550 REPORT GIVEN TO OMAIRA ON MED SURG
[2021-01-09 20:00] VITALS: BP 90/49
[2021-01-10] VITALS: BP 143/67
[2021-01-10 04:00] VITALS: BP 144/67
[2021-01-10 06:51] LABS: BASOPHILS 0.3 % (0-2); EOSINOPHILS 0 % (0-7); LYMPHOCYTES 15.6 % (15-50); MCH 30.2 pg (26.0-34.0); MCHC 32.5 g/dL (31.0-37.0); MEAN PLATELET VOLUME 7.3 fL (7.4-10.4); MONOCYTES 11.2 % (2-11); NEUTROPHILS 72.9 % (40-80); PLATELET COUNT 249 10x3/uL (130-400); RDW 16.5 % (11.5-14.5)
[2021-01-10 06:57] LABS: HEMOGLOBIN 9.7 g/dL (12-16); RBC 3.22 10x6/uL (4.00-5.40); WBC 11.2 10x3/uL (4.8-10.8)
[2021-01-10 07:13] LABS: ANION GAP 9.7 mmol/L (8-16); CALCIUM 8.3 mg/dL (8.5-10.1); CARBON DIOXIDE 29.3 mmol/L (21.0-32.0)
[2021-01-10 07:29] LABS: BILIRUBIN NEGATIVE (NEGATIVE); KETONE NEGATIVE (NEGATIVE); NITRITE NEGATIVE (NEGATIVE); UROBILINOGEN NORMAL mg/dL (< 2)
[2021-01-10 07:31] LABS: BACTERIA FEW HPF (NONE SEEN); SQUAMOUS EPITHELIAL 1 HPF (0-4); WHITE CELLS - URINE 25 HPF (0-4)
--- NOTE | 2021-01-10 07:42 | NUR ---
RESTING IN BED WITH EYES CLOSED, EASILY AROUSED TO SPEECH, ALERT AND ORIENTED. IV LOCATED TO RIGHT FOREARM CURRENTLY RUNNING NS @ 50ML. CURRENTLY RCVING 2L VIA NC. VELARDE PRESENT PUTTING OUT YELLOW URINE. NO CURRENT S/S OF DISTRESS, DENIES CURRENT NEEDS, WILL CONT TO MONITOR.
[2021-01-10 08:56] VITALS: BP 124/79
--- NOTE | 2021-01-10 11:45 | NUR ---
VELARDE CATHETER REMOVED. WILL CONT TO MONITOR.
[2021-01-10 12:46] VITALS: BP 145/75
[2021-01-10] MEDS ORDERED: HYDROCODON-ACE1 EAC7 PO (14:13)
[2021-01-10] MEDS ORDERED: COLACE100 MG PO (15:32)
[2021-01-10] MEDS ORDERED: MIRALAX17 GM PO (15:33)
--- NOTE | 2021-01-10 17:09 | NUR ---
PT VOIDED, D/C PAPERS SIGNED, WAITING TO SPEAK WITH CASE MANGAGEMENT ABOUT GETTING PT A CAB TO HOME.
[2021-01-10 17:27] VITALS: BP 138/76
--- NOTE | 2021-01-10 17:47 | NUR ---
DC`D HOME VIA WHEELCHAIR AND HOSPITAL STAFF. NO CONCERNS.
== END 2021-01-10 17:49 | disposition home or self-care (01) ==
LOC: D.OPS 05:23 → D.MS 15:56 → D.OPS 15:57 → D.MS 15:57 → OBSVTIME 15:57 → D.MS 01-10 17:49
PROVIDERS: ADMIT Surgery; ATTEND Surgery
DX: K62.3 Rectal prolapse (principal); I10 Essential (primary) hypertension; E78.5 Hyperlipidemia, unspecified; I25.10 Atherosclerotic heart disease of native coronary artery without angina pectoris; E03.9 Hypothyroidism, unspecified; M32.9 Systemic lupus erythematosus, unspecified; M35.00 Sjogren syndrome, unspecified; R33.9 Retention of urine, unspecified